=== PATIENT | male | born 1970 | race Hispanic/Latino ===

== ENCOUNTER 2020-07-13 06:16 | Inpatient (IN) | payer BC ==
[2020-07-13] MEDS ORDERED: MORPHINE 4 MG/ML SYR ONE ×2 (07:18→12:16)
[2020-07-13] MEDS ORDERED: ONDANSETRON 4 MG/2 ML VIAL ONE (07:18)
[2020-07-13 07:44] LABS: Absolute Lymphocytes (CBC) 1.1 K/uL (0.7-4.9); Basophils % 0.5 % (0-1.3); Hematocrit 53.1 % (39.6-49.0); Lymphocytes % 10.8 % (15.3-44.8); MPV 11.9 fL (7.6-11.3); RBC Red Blood Cell Count 5.95 M/uL (4.33-5.43)
[2020-07-13 08:02] LABS: Albumin 3.8 g/dL (3.4-5.0); Bilirubin Direct 0.2 mg/dL (0-0.2); Bilirubin Total 0.5 mg/dL (0.2-1.0); Potassium 3.9 mmol/L (3.5-5.1); Protein, Total 7.4 g/dL (6.4-8.2)
--- NOTE | 2020-07-13 08:43 | RAD REPORT ---
EXAM DESCRIPTION: CT - Abdomen Pelvis W Contrast - 07/13/2020 8:20 am CLINICAL HISTORY: Abdominal pain/left lower quadrant pain COMPARISON: none. TECHNIQUE: Computed axial tomography of the abdomen pelvis was obtained. 100 cc Isovue-300 was admin istered intravenously. Oral contrast was not requested which limits evaluation of bowel. All CT scans are performed using dose optimization technique as appropriate and may include automated exposure control or mA/KV adjustment according to patient size. FINDINGS: The liver, spleen, pancreas, adrenal and kidneys appear unremarkable. Gastric distention. Mild dilatation of jejunum and most of ileum. Distal ileum is decompressed. Diverticula stem from the colon. Minimal stranding adjacent to the sigmoid colon IMPRESSION: Gastric distention Mild dilatation of most of the small-bowel may indicate a partial obstruction or enteritis Minimal sigmoid diverticulitis
--- NOTE | 2020-07-13 09:15 | ER ---
Nurse's Notes [facility] Name: Stefan Man Age: 49 yrs Sex: Male : 1970 Arrival Date: 07/13/2020 Time: 06:21 Bed 7 Private MD: Diagnosis: Diverticulitis of large intestine without perforation or abscess without bleeding;Enteritis;Possible partial small bowel obstruction Presentation: 07/13 06:52 Chief complaint: Patient states: I have diverticulitis. The gave me Augmentin for jb4 it. The pain and nausea has only gotten worse. Coronavirus screen: Client denies travel out of the [place] in the last 14 days. Ebola Screen: No symptoms or risks identified at this time. Initial Sepsis Screen: Does the patient meet any 2 criteria? No. Patient's initial sepsis screen is negative. Does the patient have a suspected source of infection? No. Patient's initial sepsis screen is negative. Risk Assessment: Do you want to hurt yourself or someone else? Patient reports no desire to harm self or others. Onset of symptoms was July 13, 2020. Transition of care: patient was not received from another setting of care. 06:52 Method Of Arrival: Ambulatory jb4 06:52 Acuity: NISSA 3 jb4 Historical: - Allergies: 06:54 No Known Allergies; jb4 - Home Meds: 06:54 Augmentin Oral [Active]; jb4 - PMHx: 06:54 Diverticulitis; jb4 - PSHx: 06:54 None; jb4 - Immunization history:: Adult Immunizations up to date. - Social history:: Smoking status: Patient denies any tobacco usage or history of. Patient/guardian denies using alcohol, street drugs. - Family history:: not pertinent. - Hospitalizations: : No recent hospitalization is reported. Screenin:19 Abuse screen: Denies threats or abuse. Denies injuries from another. Nutritional ph screening: No deficits noted. Tuberculosis screening: No symptoms or risk factors identified. Fall Risk None identified. Assessment: 07:30 General: Appears in no apparent distress. comfortable, well groomed, Behavior is calm, ph cooperative, appropriate for age, Denies fever. Pain: Complains of pain in left lower quadrant. Neuro: Level of Consciousness is awake, alert, obeys commands, Oriented to person, place, time, situation. Cardiovascular: Capillary refill < 3 seconds in bilateral fingers Patient's skin is warm and dry. Respiratory: Airway is patent Respiratory effort is even, unlabored, Respiratory pattern is regular, symmetrical. GI: Abdomen is flat, non-distended, Bowel sounds present X 4 quads. Reports lower abdominal pain, diarrhea, nausea, vomiting. Derm: Skin is intact, is healthy with good turgor, Skin is pink, warm \T\ dry. Musculoskeletal: Circulation, motion, and sensation intact. Range of motion: intact in all extremities. 09:00 Reassessment: Patient appears in no apparent distress at this time. Patient and/or ph family updated on plan of care and expected duration. Pain level reassessed. Patient is alert, oriented x 3, equal unlabored respirations, skin warm/dry/pink. Pt resting comfortably, VSS, awaiting lab and CT scan. 10:00 Reassessment: Patient appears in no apparent distress at this time. Patient and/or ph family updated on plan of care and expected duration. Pain level reassessed. Patient is alert, oriented x 3, equal unlabored respirations, skin warm/dry/pink. 11:35 Reassessment: Patient appears in no apparent distress at this time. Patient and/or ph family updated on plan of care and expected duration. Pain level reassessed. Patient is alert, oriented x 3, equal unlabored respirations, skin warm/dry/pink. Pt reports that abdominal pain has returned, verbal order received form admitting PT SITTER for Morphine 4 mg IVP. 12:32 Reassessment: Patient appears in no apparent distress at this time. Patient and/or ph family updated on plan of care and expected duration. Pain level reassessed. Patient is alert, oriented x 3, equal unlabored respirations, skin warm/dry/pink. Attempted to call report, receiving nurse at lunch, told that she would call for report. Vital Signs: 06:52 BP 154 / 103; Pulse 82; Resp 16; Temp 98.1(TE); Pulse Ox 97% on R/A; Weight 117.93 kg jb4 (R); Height 6 ft. 0 in. (182.88 cm) (R); Pain 10/10; 08:22 BP 147 / 89; Pulse 78; Resp 18; Pulse Ox 94% on R/A; ph 10:06 BP 139 / 79; Pulse 56; Resp 18; Pulse Ox 100% on R/A; ph 11:00 BP 142 / 78; Pulse 61; Resp 18; Pulse Ox 98% on R/A; ph 12:00 BP 138 / 94; Pulse 72; Resp 18; Pulse Ox 98% on R/A; ph 12:55 BP 148 / 89; Pulse 78; Resp 18; Temp 97.9; Pulse Ox 97% on R/A; ph 06:52 Body Mass Index 35.26 (117.93 kg, 182.88 cm) jb4 ED Course: 06:21 Patient arrived in ED. es 06:53 Triage completed. jb4 06:54 Arm band placed on right wrist. jb4 06:57 John Paul Cole MD is Attending Physician. rn 07:18 Eva Oviedo, EMILY is Primary Nurse. ph 07:19 Patient has correct armband on for positive identification. Bed in low position. Call ph light in reach. Side rails up X 1. Pulse ox on. NIBP on. Door closed. Warm blanket given. 07:36 Initial lab(s) drawn, by nv, sent to lab. Inserted saline lock: 20 gauge in right em1 wrist, using aseptic technique. Blood collected. 08:20 CT Abd/Pelvis - IV Contrast Only In Process Unspecified. EDMS 09:14 Han Louie is Hospitalizing Provider. rn 10:06 No provider procedures requiring assistance completed. Patient admitted, IV remains in ph place. Administered Medications: 07:50 Drug: Zofran (Ondansetron) 4 mg Route: IVP; Site: right forearm; ph 09:15 Follow up: Response: No adverse reaction; Nausea unchanged ph 07:50 Drug: NS 0.9% 1000 ml Route: IV; Rate: 1000 ml; Site: right wrist; ph 09:30 Follow up: Response: No adverse reaction; IV Status: Completed infusion; IV Intake: ph 1000ml 07:52 Drug: morphine 4 mg Route: IVP; Site: right wrist; ph 08:45 Follow up: Response: No adverse reaction; Pain is decreased; RASS: Alert and Calm (0) ph 09:30 Drug: Phenergan (promethazine) 12.5 mg Route: IVP; Site: right wrist; ph 10:00 Follow up: Response: No adverse reaction ph 09:32 Drug: Cipro (ciprofloxacin) 400 mg Volume: 200 ml; Route: IVPB; Infused Over: 60 mins; ph Site: right wrist; 10:40 Follow up: Response: No adverse reaction; IV Status: Completed infusion; IV Intake: ph 200ml 09:35 Drug: Flagyl (metroNIDAZOLE) 500 mg Volume: 100 ml; Route: IVPB; Rate: 200 ml/hr; ph Infused Over: 30 mins; Site: right wrist; 10:05 Follow up: Response: No adverse reaction; IV Status: Completed infusion; IV Intake: ph 100ml 09:36 Drug: Calcium Gluconate 1 grams Route: IVPB; Infused Over: 60 mins; Site: right wrist; ph 10:40 Follow up: Response: No adverse reaction; IV Status: Completed infusion; IV Intake: ph 100ml 12:01 Drug: morphine 4 mg Route: IVP; Site: right wrist; ph 12:30 Follow up: Response: No adverse reaction; Pain is decreased ph Intake: 09:30 IV: 1000ml; Total: 1000ml. ph 10:05 IV: 100ml; Total: 1100ml. ph 10:40 IV: 100ml; Total: 1200ml. ph 10:40 IV: 200ml; Total: 1400ml. ph Outcome: 09:15 Decision to Hospitalize by Provider. rn 12:34 Admitted to Med/surg accompanied by tech, family with patient, with chart. ph 12:34 Condition: stable 12:34 Instructed on the need for admit. 13:14 Patient left the ED. ph Signatures: Dispatcher [employer] Kendra Alexander Roman, MD MD rn Martinez, Eric 1 Eva Oviedo RN RN ph Bryson, James, RN RN jb4
--- NOTE | 2020-07-13 09:16 | EDPHYS ---
Physician Documentation [facility] Name: Stefan Man Age: 49 yrs Sex: Male : 1970 Arrival Date: 07/13/2020 Time: 06:21 Bed 7 Private MD: ED Physician John Paul Cole HPI: 07/13 07:05 This 49 yrs old Male presents to ER via Ambulatory with complaints of rn Abdominal Pain, Diarrhea. 07:05 The patient presents to the emergency department with nausea, diarrhea, abdominal pain, rn of the left lower quadrant, described as crampy, intermittent, and does not radiate. Onset: The symptoms/episode began/occurred 3 day(s) ago. Possible causes: unknown. The symptoms are aggravated by nothing. The symptoms are alleviated by nothing. Associated signs and symptoms: Pertinent positives: abdominal pain, anorexia, diarrhea, nausea, Pertinent negatives: GI bleeding. Severity of symptoms: At their worst the symptoms were moderate in the emergency department the symptoms are unchanged. The patient has experienced similar episodes in the past. The patient has been recently seen by a physician:. Reports LLQ abd pain, began 3 days ago, similar to previous episodes of diverticulitis, no fever, + nausea, + diarrhea, no bleeding. Reports seen by pcp recently, put on augmentin, doesn't feel like it is helping. . Historical: - Allergies: 06:54 No Known Allergies; jb4 - Home Meds: 06:54 Augmentin Oral [Active]; jb4 - PMHx: 06:54 Diverticulitis; jb4 - PSHx: 06:54 None; jb4 - Immunization history:: Adult Immunizations up to date. - Social history:: Smoking status: Patient denies any tobacco usage or history of. Patient/guardian denies using alcohol, street drugs. - Family history:: not pertinent. - Hospitalizations: : No recent hospitalization is reported. ROS: 07:05 Constitutional: Negative for fever, chills, and weight loss, Eyes: Negative for injury, rn pain, redness, and discharge, Neck: Negative for injury, pain, and swelling, Cardiovascular: Negative for chest pain, palpitations, and edema, Respiratory: Negative for shortness of breath, cough, wheezing, and pleuritic chest pain, Abdomen/GI: + abd pain, + nausea, + diarrhea Back: Negative for injury and pain, : Negative for injury, bleeding, discharge, and swelling, MS/Extremity: Negative for injury and deformity, Skin: Negative for injury, rash, and discoloration, Neuro: Negative for headache, numbness, tingling, and seizure. Exam: 07:05 Constitutional: This is a well developed, well nourished patient who is awake, alert, rn and in no acute distress. Head/Face: Normocephalic, atraumatic. Eyes: Periorbital areas with no swelling, redness, or edema. Cardiovascular: Regular rate and rhythm. No pulse deficits. Respiratory: No increased work of breathing, no retractions or nasal flaring. Abdomen/GI: Soft, + mild LLQ tenderness, no rebound, no peritoneal signs Skin: Warm, dry MS/ Extremity: Pulses equal, no cyanosis. Neuro: Awake and alert, GCS 15 Vital Signs: 06:52 BP 154 / 103; Pulse 82; Resp 16; Temp 98.1(TE); Pulse Ox 97% on R/A; Weight 117.93 kg jb4 (R); Height 6 ft. 0 in. (182.88 cm) (R); Pain 10/10; 08:22 BP 147 / 89; Pulse 78; Resp 18; Pulse Ox 94% on R/A; ph 10:06 BP 139 / 79; Pulse 56; Resp 18; Pulse Ox 100% on R/A; ph 11:00 BP 142 / 78; Pulse 61; Resp 18; Pulse Ox 98% on R/A; ph 12:00 BP 138 / 94; Pulse 72; Resp 18; Pulse Ox 98% on R/A; ph 12:55 BP 148 / 89; Pulse 78; Resp 18; Temp 97.9; Pulse Ox 97% on R/A; ph 06:52 Body Mass Index 35.26 (117.93 kg, 182.88 cm) jb4 MDM: 06:57 Patient medically screened. rn 09:12 Differential diagnosis: Nonspecific abd pain, diverticulitis, viral gastroenteritis, rn gastroenteritis. Data reviewed: vital signs, nurses notes, lab test result(s), radiologic studies, CT scan, and as a result, I will admit patient. Counseling: I had a detailed discussion with the patient and/or guardian regarding: the historical points, exam findings, and any diagnostic results supporting the discharge/admit diagnosis, lab results, radiology results, the need for further work-up and treatment in the hospital. Response to treatment: the patient's symptoms have mildly improved after treatment, and as a result, I will admit patient. Admission orders: after a detailed discussion of the patient's condition and case, the admit orders are written by me. ED course: Pt with enteritis vs partial SBO and diverticulitis on CT abdomen. Story more consistent with diverticulitis/enteritis given diarrhea, and lack of hernia/abd surgery in past. Since unclear, will admit to hospitalist for further observation, IV abx, fluids. . 07/13 06:53 Order name: Basic Metabolic Panel; Complete Time: 08:10 tw4 07/13 06:53 Order name: CBC with Diff; Complete Time: 07:47 tw4 07/13 06:53 Order name: Hepatic Function; Complete Time: 08:10 tw4 07/13 06:53 Order name: Lipase; Complete Time: 08:10 tw4 07/13 11:02 Order name: SARS-COV-2 RT PCR EDMS 07/13 07:04 Order name: CT Abd/Pelvis - IV Contrast Only; Complete Time: 08:46 rn 07/13 06:53 Order name: IV Saline Lock; Complete Time: 07:36 tw4 07/13 06:53 Order name: Labs collected and sent; Complete Time: 07:36 tw4 Administered Medications: 07:50 Drug: Zofran (Ondansetron) 4 mg Route: IVP; Site: right forearm; ph 09:15 Follow up: Response: No adverse reaction; Nausea unchanged ph 07:50 Drug: NS 0.9% 1000 ml Route: IV; Rate: 1000 ml; Site: right wrist; ph 09:30 Follow up: Response: No adverse reaction; IV Status: Completed infusion; IV Intake: ph 1000ml 07:52 Drug: morphine 4 mg Route: IVP; Site: right wrist; ph 08:45 Follow up: Response: No adverse reaction; Pain is decreased; RASS: Alert and Calm (0) ph 09:30 Drug: Phenergan (promethazine) 12.5 mg Route: IVP; Site: right wrist; ph 10:00 Follow up: Response: No adverse reaction ph 09:32 Drug: Cipro (ciprofloxacin) 400 mg Volume: 200 ml; Route: IVPB; Infused Over: 60 mins; ph Site: right wrist; 10:40 Follow up: Response: No adverse reaction; IV Status: Completed infusion; IV Intake: ph 200ml 09:35 Drug: Flagyl (metroNIDAZOLE) 500 mg Volume: 100 ml; Route: IVPB; Rate: 200 ml/hr; ph Infused Over: 30 mins; Site: right wrist; 10:05 Follow up: Response: No adverse reaction; IV Status: Completed infusion; IV Intake: ph 100ml 09:36 Drug: Calcium Gluconate 1 grams Route: IVPB; Infused Over: 60 mins; Site: right wrist; ph 10:40 Follow up: Response: No adverse reaction; IV Status: Completed infusion; IV Intake: ph 100ml 12:01 Drug: morphine 4 mg Route: IVP; Site: right wrist; ph 12:30 Follow up: Response: No adverse reaction; Pain is decreased ph Disposition: 07/13/20 09:15 Hospitalization ordered by Han Louie for Observation. Preliminary diagnosis are Diverticulitis of large intestine without perforation or abscess without bleeding, Enteritis, Possible partial small bowel obstruction. - Bed requested for Telemetry/MedSurg (observation). - Status is Observation. ph - Condition is Stable. - Problem is new. - Symptoms have improved. Signatures: Dispatcher [employer] [facility] Leila Kim RN RN dw Nieto, Roman, MD MD rn Hall, Patricia, RN RN ph Bryson, James, RN RN jb4 Alek Figueredo MD MD tw4 Corrections: (The following items were deleted from the chart) 10:02 09:12 CORONAVIRUS+MR.LAB.BRZ ordered. [facility] 12:25 09:15 Hospitalization Ordered by Han Louie for Observation. Preliminary diagnosis dw is Diverticulitis of large intestine without perforation or abscess without bleeding; Enteritis; Possible partial small bowel obstruction. Bed requested for Telemetry/MedSurg (observation). Status is Observation. Condition is Stable. Problem is new. Symptoms have improved. rn 12:26 12:25 07/13/2020 09:15 Hospitalization Ordered by Han Louie for Observation. dw Preliminary diagnosis is Diverticulitis of large intestine without perforation or abscess without bleeding; Enteritis; Possible partial small bowel obstruction. Bed requested for Telemetry/MedSurg (observation). Status is Observation. Condition is Stable. Problem is new. Symptoms have improved. dw 13:14 12:26 07/13/2020 09:15 Hospitalization Ordered by Han Louie for Observation. ph Preliminary diagnosis is Diverticulitis of large intestine without perforation or abscess without bleeding; Enteritis; Possible partial small bowel obstruction. Bed requested for Telemetry/MedSurg (observation). Status is Observation. Condition is Stable. Problem is new. Symptoms have improved. dw
[2020-07-13] MEDS ORDERED: PROMETHAZINE INJ 25 MG/ML AMP ONE (09:39)
[2020-07-13] MEDS ORDERED: CALCIUM GLUCONATE 1 GM IVPB 1 GM/50 ML BAG IV ONE (09:40)
[2020-07-13] MEDS ORDERED: METRONIDAZOLE 500mg IVPB 500 MG/100 ML BAG IV ONE (09:40)
[2020-07-13] MEDS ORDERED: CIPROFLOXACIN 400mg IV 400 MG/200 ML BAG IV ONE (09:40)
--- NOTE | 2020-07-13 11:23 | P.HP ---
Certification for Inpatient Patient admitted to: Observation With expected LOS: <2 Midnights Patient will require the following post-hospital care: None Practitioner: I am a practitioner with admitting privileges, knowledge of patient current condition, hospital course, and medical plan of care. Services: Services provided to patient in accordance with Admission requirements found in Title 42 Section 412.3 of the Code of Federal Regulations Patient History Date of Service: 07/13/20 Reason for admission: diverticulitis History of Present Illness: This is a 49 y/o M w/ hx of recurrent diverticulitis who presents today w/ worsening abdominal pain x 6 days. He describes the pain as feeling bloated and cramping 11/15. He states the pain started mildly on Monday and saw a dr at [facility] and was prescribed antibiotics. He reports his pain continued to get worse through the week and reports no relief with antibiotics or immodium. He reports he has a history of diverticulitis flare ups and he was hospitalized once before in 2018. He has never had a colonoscopy. He does not currently have a GI dr and was in the process of setting up care, he had a GI appointment scheduled for tomorrow. He c/o nausea, vomiting, diarrhea. He denies any fever or chills. No elevated WBC. CT scan shows "Gastric distention. Mild dilatation of most of the small-bowel may indicate a partial obstruction or enteritis. Minimal sigmoid diverticulitis" Allergies No Known Allergies Allergy (Verified 03/27/12 07:36) Home Medications: NK [No Home Meds] 07/13/20 - Past Medical/Surgical History -: diverticulitis Past Surgical History: Patient denies surgical history Psychosocial/ Personal History: lives w/ girlfriend - Family History Family History: Reviewed- Non-Contributory - Social History Smoking Status: Never smoker Alcohol use: Yes CD- Drugs: No Caffeine use: No Review of Systems 10-point ROS is otherwise unremarkable General: Weakness Gastrointestinal: Nausea, Vomiting, Abdominal Pain, Diarrhea, As per HPI Physical Examination - Physical Exam General: Alert, Oriented x3 HEENT: Atraumatic, Normocephalic, PERRLA, Mucous membr. moist/pink, EOMI Neck: Supple Respiratory: Clear to auscultation bilaterally, Normal air movement Cardiovascular: No edema, Regular rate/rhythm, No murmurs Gastrointestinal: Normal bowel sounds, Soft and benign, Distended, Tenderness (diffuse tenderness in all quadrants, TTP>LLQ) Musculoskeletal: No clubbing, No swelling Integumentary: No rashes, No erythema, No warmth Neurological: Normal speech, Normal tone, Normal affect Lymphatics: No axilla or inguinal lymphadenopathy - Studies Laboratory Data (last 24 hrs) 07/13/20 07:33: WBC 10.10, Hgb 17.5, Hct 53.1 H, Plt Count 136 L 07/13/20 07:33: Sodium 140, Potassium 3.9, BUN 17, Creatinine 1.23, Glucose 134 H, Total Bilirubin 0.5, AST 28, ALT 62, Alkaline Phosphatase 77, Lipase 72 L Assessment and Plan - Plan problem list: diverticulitis vs enteritis assessment: ceftriaxone and flagyl surgery consulted NPO IVF KUB ordered for tomorrow morning pain control w/ morphine DVT prophylaxis procal pending Discharge Plan: Home Plan to discharge in: 24 Hours - Advance Directives Does patient have a Living Will: No Does patient have a Durable POA for Healthcare: No - Code Status/Comfort Care Code Status Assessed: Yes Code Status: Full Code Time Spent Managing Pts Care (In Minutes): 70
[2020-07-13] MEDS ORDERED: ACETAMINOPHEN 500 MG TAB PO PRN (13:12)
[2020-07-13 13:39] VITALS: BMI 36.6
[2020-07-13] MEDS: ONDANSETRON 4 MG/2 ML VIAL IV PRN ×2 (13:48→20:07)
[2020-07-13] MEDS: MORPHINE 2 MG/ML SYR IV PRN ×2 (13:48→20:07)
[2020-07-13] MEDS: NA CHLORIDE 0.9% 1,000 ML IV SCH ×2 (13:48→23:12)
[2020-07-13] MEDS: CEFTRIAXONE/SWI 1gm 1 GM/10 ML SYR IV SCH (13:48)
[2020-07-13 15:47] LABS: Urine Appearance CLEAR (Clear); Urine Bilirubin NEGATIVE (Negative); Urine Blood NEGATIVE (Negative); Urine Color YELLOW (Yellow); Urine Glucose TRACE (Negative); Urine Protein NEGATIVE (Negative); Urine Specific Gravity >=1.030 (1.005-1.030); Urine Urobilinogen 0.2 mg/dL (0.2-1.0)
[2020-07-13 15:52] LABS: Urine Microscopic Reflex NO UMIC
[2020-07-13] MEDS: METRONIDAZOLE 500mg IVPB 500 MG/100 ML BAG IV SCH (16:10)
--- NOTE | 2020-07-13 19:12 | CON ---
Date of Consultation: 07/13/2020 Reason For Consultation: Abdominal pain. History Of Present Illness: The patient is a 49-year-old gentleman, who about a week had left lower quadrant abdominal pain with a history of diverticulitis and started on Augmentin; however, his sympt oms worsened on Monday when he was mowing the lawn with diffuse abdominal pain and was progressive over the next 2 days and became worse. He came to the ER today complaining of some nausea, vomiting, and diffuse abdominal pain. No diarrhea or constipation. No blood in the stool. No dysuria or hem aturia. No sore throat, runny nose, cough, headaches, or dizziness. No chest pain. No family histo ry of colorectal malignancy. The patient does not smoke. He does not drink alcohol, except for soci al events. Past Medical History: Negative. Past Surgical History: Negative. Allergies: NO ALLERGIES. Social History: As per HPI. Family History: As per HPI. Physical Examination: Vital Signs: Stable. He is afebrile. General: He is awake, alert, oriented x3. Head and Neck: Cranial nerves 2 through 12 grossly within normal limits. No neck masses. No JVD. Throat clear. Neck is supple. Chest: Clear. Heart: S1, S2. Abdomen: Soft, but slightly distended. Hypoactive bowel sounds. Diffuse minimal tenderness. No re bound, rigidity, or guarding. Exquisite tenderness in the left lower quadrant, however. Extremities: Adequately perfused, nontender. Neuro: Nonfocal. Laboratory Data: White count is 10.8 with slight left shift. Electrolytes reviewed. CT of the abdo men and pelvis shows mild sigmoid diverticulitis with mild dilatation of the jejunum and most of the ileum. Assessment: Likely sigmoid diverticulitis with partial small bowel obstruction. Recommendations: N.p.o., IV fluid, IV antibiotic, to the OR, NG tube if he continues to have nausea and vomiting. Check serial labs. If the patient improves, then we can advance him to clear liquids to a low-fiber diet. He will undergo surgical intervention sooner. In the meantime as far as long-t erm plan, this acute diverticulitis needs to be treated and then the patient will need a colonoscopy in 4-6 weeks. Depending on the findings, he may need surgical intervention. Plan of care discussed in detail with the hospitalist team as well as the patient. /MODL Voice ID: [id number] Report ID: [id number]
[2020-07-14] MEDS: NA CHLORIDE 0.9% 1,000 ML IV SCH ×3 (00:48→20:49)
[2020-07-14] MEDS: METRONIDAZOLE 500mg IVPB 500 MG/100 ML BAG IV SCH ×3 (01:00→17:02)
[2020-07-14 05:40] LABS: Absolute Lymphocytes (CBC) 1.3 K/uL (0.7-4.9); Basophils % 0.3 % (0-1.3); Hematocrit 45.2 % (39.6-49.0); Lymphocytes % 19.4 % (15.3-44.8); MPV 12.1 fL (7.6-11.3); RBC Red Blood Cell Count 4.99 M/uL (4.33-5.43)
[2020-07-14 05:55] LABS: Magnesium 2.2 mg/dL (1.8-2.4); Phosphorus 2.2 mg/dL (2.5-4.9); Potassium 3.9 mmol/L (3.5-5.1)
--- NOTE | 2020-07-14 07:09 | RAD REPORT ---
EXAM DESCRIPTION: RAD - Abdomen Single View - 07/14/2020 7:02 am CLINICAL HISTORY: partial bowel obstruction Abdominal pain COMPARISON: Abdomen Pelvis W Contrast dated 07/13/2020 FINDINGS: Fluid-filled stomach is still present. Multiple dilated small bowel loops are still presen t. No free air or pneumatosis. No improvement in the small bowel pattern. Air is present in the colon down to the level of the rectum. No suspicious calcifications. IMPRESSION: No improvement in the dilated small bowel pattern. No free air, pneumatosis or surgically emergent interval change.
[2020-07-14] MEDS ORDERED: POTASSIUM PHOS IN 0.9 % NACL 15 MMOL/250 ML BAG IV ONE (09:00)
[2020-07-14] MEDS: ENOXAPARIN 40 MG/0.4 ML SQ SCH (09:00)
[2020-07-14] MEDS: CEFTRIAXONE/SWI 1gm 1 GM/10 ML SYR IV SCH (09:40)
--- NOTE | 2020-07-14 10:15 | P.PN ---
Subjective Date of Service: 07/14/20 Chief Complaint: diverticulitis Subjective: Improving (continues with nausea and pain, slight improvement, +flatus, no BM, no emesis abd x-ray unchanged with small bowel distention) Review of Systems 10-point ROS is otherwise unremarkable Physical Examination - Vital Signs Temperature: 97.3 F Blood Pressure: 133/80 Pulse: 70 Respirations: 17 Pulse Ox (%): 99 - Studies Laboratory Data (last 24 hrs) 07/14/20 05:15: Sodium 141, Potassium 3.9, BUN 15, Creatinine 1.23, Glucose 94, Phosphorus 2.2 L, Magnesium 2.2 07/14/20 05:15: WBC 6.50 D, Hgb 14.6 D, Hct 45.2, Plt Count 123 L Assessment & Plan Physician Review Additional Text: Physical Exam General: Alert, Oriented x3 HEENT: normal conjunctiva, EOMI Respiratory: Clear to auscultation bilaterally, Normal air movement, nonlabored respirations on RA Cardiovascular: No edema, Regular rate/rhythm, No murmurs Abdl: soft, mildly distended, TTP diffusely, most in LLQ Musculoskeletal: No joint swelling Integumentary: No rashes, No erythema, No warmth Neurological: Normal speech, Normal affect Lymphatics: No axilla or inguinal lymphadenopathy Problem List acute Diverticulitis Partial small bowel obstruction -continue IV rocephin and flagyl -general surgery consulted -continue NPO, IVF -KUB with no improvement -+flatus, and overall feeling slightly better -NGT if worsens -continue pain control with morphine PRN -if continues to improve, possible advance to clears tomorrow VTE: lovenox Dispo: anticipate dc home in ~24-48hrs Time Spent Managing Pts Care (In Minutes): 35
[2020-07-14] MEDS: ONDANSETRON 4 MG/2 ML VIAL IV PRN (10:40)
--- NOTE | 2020-07-14 13:56 | PN ---
Date of Progress Note: 07/14/2020 Subjective: The patient is awake, alert, feels better. Had a little bit nausea when he was moving f or the abdominal x-ray this morning, but no vomiting. He is passing gas . Objective: Vital Signs: Stable and afebrile. Abdomen: Soft, less distended, much less tenderness in the left lower quadrant. No rebound, rigidit y, or guarding. Laboratory Data: White count is normal. There is no left shift anymore. X-rays still showed bilate ral dilatation of the small bowel with no significant change. Assessment: Acute sigmoid diverticulitis with partial small bowel obstruction, slowly improving clin ically. Recommendations: As he is still a little symptomatic and the x-rays have improved, I would recommend to be n.p.o., he can have some ice chips today and probably he could start clear liquids tomorrow. Continue IV fluids and IV antibiotics while in the hospital. SARTHAK/ASHUTOSH Voice ID: [id number] Report ID: [id number]
[2020-07-15] MEDS: METRONIDAZOLE 500mg IVPB 500 MG/100 ML BAG IV SCH ×3 (00:57→15:59)
[2020-07-15 04:32] LABS: Absolute Lymphocytes (CBC) 1.5 K/uL (0.7-4.9); Basophils % 0.3 % (0-1.3); Hematocrit 43.8 % (39.6-49.0); RBC Red Blood Cell Count 4.91 M/uL (4.33-5.43)
[2020-07-15 04:33] LABS: Phosphorus 2.3 mg/dL (2.5-4.9); Potassium 3.7 mmol/L (3.5-5.1)
[2020-07-15] MEDS: NA CHLORIDE 0.9% 1,000 ML IV SCH (05:12)
--- NOTE | 2020-07-15 07:58 | RAD REPORT ---
EXAM DESCRIPTION: RAD - Abdomen 1 View (KUB) - 07/15/2020 6:32 am CLINICAL HISTORY: eval SBO Abdominal pain COMPARISON: Abdomen Pelvis W Contrast dated 07/13/2020; Abdomen Single View dated 07/14/2020 FINDINGS: Multiple dilated small bowel loops are present in the mid and right side abdomen. Bowel lo ops have decreased in prominence from the prior day study. No free air or pneumatosis have developed. Air and stool are present in the colon to the distal rectum level. No suspicious calcifications. No significant bony findings IMPRESSION: Improved but not resolved dilated small bowel pattern. No free air, pneumatosis or other emergent finding.
[2020-07-15] MEDS ORDERED: POTASSIUM PHOS IN 0.9 % NACL 15 MMOL/250 ML BAG IV ONE (08:00)
[2020-07-15] MEDS: CEFTRIAXONE/SWI 1gm 1 GM/10 ML SYR IV SCH (08:06)
[2020-07-15] MEDS: ENOXAPARIN 40 MG/0.4 ML SQ SCH (08:07)
--- NOTE | 2020-07-15 09:37 | P.PN ---
Subjective Date of Service: 07/15/20 Chief Complaint: diverticulitis Subjective: Improving (Improving, no nausea since yesterday, minimal abdominal pressure/discomfort. Reports he is feeling hungry. Tolerated a few ice chips yesterday.) Review of Systems 10-point ROS is otherwise unremarkable Physical Examination - Vital Signs Temperature: 97.5 F Blood Pressure: 124/66 Pulse: 57 Respirations: 14 Pulse Ox (%): 98 Assessment & Plan Physician Review Additional Text: Physical Exam General: Alert, Oriented x3, NAD HEENT: normal conjunctiva, sclerae anicteric Respiratory: Clear to auscultation bilaterally, Normal air movement, nonlabored respirations on RA Cardiovascular: No edema, Regular rate/rhythm, No murmurs Abdl: soft, non distended, mild discomfort diffusely Problem List acute Diverticulitis Partial small bowel obstruction -+flatus, 2 BM last night -continue IV rocephin and flagyl -general surgery consulted -KUB appears improved, symptoms improved, suspect bowel obstruction resolving -advance to CLD today -further advance tomorrow if tolerating today -foreign law consultant consulted VTE: lovenox Dispo: anticipate dc home tomorrow if continues to improve will need PO antibiotics (cipro & flagyl), f/u with general surgery in ~2weeks. Time Spent Managing Pts Care (In Minutes): 35
--- NOTE | 2020-07-15 10:36 | PN ---
Date of Progress Note: 07/15/2020 Subjective: The patient is awake, alert. Had a couple of bowel movements yesterday. No pain. No n ausea. No vomiting. Objective: Vital Signs: Stable, afebrile. Laboratory Data: White count is normal. Platelets are 121. There is no left shift. The patient dixon d an x-ray this morning, which showed improved small bowel dilated pattern. Assessment: Acute sigmoid diverticulitis with partial small bowel obstruction, improving. Recommendations: Start the patient on clear liquids. Slowly advance diet. We will get dietary cons ultation for dietary modification. The patient to be advanced to low-fiber diet as tolerated and the n to be discharged on oral antibiotics for 2 weeks, Cipro and Flagyl would be a good combination for the patient and then the patient will follow with me in 2 weeks and I will refer the patient to GI do ctor for colonoscopy. The patient is clinically doing well. SARTHAK/MODL Voice ID: [id number] Report ID: [id number]
[2020-07-15 22:20] VITALS: O2SAT 99
[2020-07-16] MEDS: METRONIDAZOLE 500mg IVPB 500 MG/100 ML BAG IV SCH ×3 (00:59→16:01)
[2020-07-16 04:41] LABS: Phosphorus 3.4 mg/dL (2.5-4.9); Potassium 3.7 mmol/L (3.5-5.1)
[2020-07-16] MEDS: CEFTRIAXONE/SWI 1gm 1 GM/10 ML SYR IV SCH (08:40)
[2020-07-16] MEDS: ENOXAPARIN 40 MG/0.4 ML SQ SCH (08:40)
[2020-07-16] MEDS ORDERED: POTASSIUM CL SA 10 MEQ TAB PO ONE (09:00)
--- NOTE | 2020-07-16 09:15 | RAD REPORT ---
EXAM DESCRIPTION: RAD - Abdomen 1 View (KUB) - 07/16/2020 5:46 am CLINICAL HISTORY: f/u SBO Pain COMPARISON: Abdomen 1 View (KUB) dated 07/15/2020 FINDINGS: Two mildly prominent small bowel loops are again noted in the left upper quadrant, similar to yesterday's examination. Otherwise, the bowel gas pattern is nonobstructive. No evidence of free intraperitoneal air. No significant bony findings. IMPRESSION: No significant change has occurred since yesterday's examination.
--- NOTE | 2020-07-16 15:12 | P.PN ---
Subjective Date of Service: 07/16/20 Chief Complaint: diverticulitis Subjective: Other (BM yetserday, reports slight specks of red blood. no further bleeding. otherwise feeling ok, some gas / burping, +flatus last night. tolerating clear liquid diet with some slight increase in burping) Review of Systems 10-point ROS is otherwise unremarkable Physical Examination - Vital Signs Temperature: 98.8 F Blood Pressure: 128/75 Pulse: 51 Respirations: 16 Pulse Ox (%): 100 Assessment & Plan Physician Review Additional Text: Physical Exam General: Alert, Oriented x3, NAD HEENT: normal conjunctiva, sclerae anicteric Respiratory: Clear to auscultation bilaterally, Normal air movement, nonlabored respirations on RA Cardiovascular: No edema, Regular rate/rhythm, No murmurs Abdl: soft, non distended, nontender Problem List acute Diverticulitis Partial small bowel obstruction vs ileus -+flatus, 1 BM last night -continue IV rocephin and flagyl -general surgery consulted -KUB appears improved - persistent small bowel loops but no obstructive gas pattern -advance to full liquids, if tolerating well, anticipate dc home later today, will need 2 weeks total of antibiotics - cipro/flagyl on discharge -director of content marketing consulted VTE: lovenox Dispo: anticipate dc home later today if continues to improve will need PO antibiotics (cipro & flagyl), f/u with general surgery in ~2weeks. Time Spent Managing Pts Care (In Minutes): 35
[2020-07-16 16:19] VITALS: BP 130/73; TEMP 97.3
--- NOTE | 2020-07-16 19:48 | P.DS ---
Admission Date: 07/14/20 Discharge Date: 07/16/20 Disposition: ROUTINE DISCHARGE Discharge Condition: GOOD Reason for Admission: diverticulitis Consultations: General Surgery - Dr. Hayes Procedures: CT Abd/pelvis (07/13): FINDINGS: The liver, spleen, pancreas, adrenal and kidneys appear unremarkable. Gastric distention. Mild dilatation of jejunum and most of ileum. Distal ileum is decompressed. Diverticula stem from the colon. Minimal stranding adjacent to the sigmoid colon IMPRESSION: Gastric distention Mild dilatation of most of the small-bowel may indicate a partial obstruction or enteritis Minimal sigmoid diverticulitis Xray KUB (07/14): FINDINGS: Fluid-filled stomach is still present. Multiple dilated small bowel loops are still present. No free air or pneumatosis. No improvement in the small bowel pattern. Air is present in the colon down to the level of the rectum. No suspicious calcifications. IMPRESSION: No improvement in the dilated small bowel pattern. No free air, pneumatosis or surgically emergent interval change. Xray KUB (07/15): FINDINGS: Multiple dilated small bowel loops are present in the mid and right side abdomen. Bowel loops have decreased in prominence from the prior day study. No free air or pneumatosis have developed. Air and stool are present in the colon to the distal rectum level. No suspicious calcifications. No significant bony findings IMPRESSION: Improved but not resolved dilated small bowel pattern. No free air, pneumatosis or other emergent finding. Xray KUB (07/16): FINDINGS: Two mildly prominent small bowel loops are again noted in the left upper quadrant, similar to yesterday's examination. Otherwise, the bowel gas pattern is nonobstructive. No evidence of free intraperitoneal air. No significant bony findings. IMPRESSION: No significant change has occurred since yesterday's examination. Problem List Acute sigmoid Diverticulitis ileus vs parital SBO Brief History of Present Illness: 49 y/o M w/ hx of recurrent diverticulitis who presents today w/ worsening ab dominal pain x 6 days. He describes the pain as feeling bloated and cramping 11/15. He states the pain started mildly on Monday and saw a dr at [facility] and was prescribed antibiotics. He reports his pain continued to get worse through the week and reports no relief with antibiotics or immodium. He reports he has a history of diverticulitis flare ups and he was hospitalized once before in 2018. He has never had a colonoscopy. He does not currently have a GI dr and was in the process of setting up care, he had a GI appointment scheduled for tomorrow. He c/o nausea, vomiting, diarrhea. He denies any fever or chills. Hospital Course: Treated with empiric antibiotics, IVF, and bowel rest. He had gradual improvement of his symptoms and resolution of obstructive pattern on imaging. On day of discharge he was feeling much better, tolerating full liquid diet with some mild belching, but passing flatus and had multiple BMs. He was discharged to complete 2 week course of cipro & flagyl Follow up with Dr. Hayes in 2 weeks. He will need colonscopy in the near future / f/u with GI. Vital Signs/Physical Exam: Temp Pulse Resp BP Pulse Ox 97.3 F 53 16 130/73 100 07/16/20 16:00 07/16/20 16:00 07/16/20 16:00 07/16/20 16:00 07/16/20 16:00 Laboratory Data at Discharge: WBC 6.10 K/uL (4.3-10.9) 07/15/20 03:36 Hgb 14.6 g/dL (13.6-17.9) 07/15/20 03:36 Hct 43.8 % (39.6-49.0) 07/15/20 03:36 Plt Count 121 K/uL (152-406) L 07/15/20 03:36 Sodium 142 mmol/L (136-145) 07/16/20 03:57 Potassium 3.7 mmol/L (3.5-5.1) 07/16/20 03:57 BUN 14 mg/dL (7-18) 07/16/20 03:57 Creatinine 1.33 mg/dL (0.55-1.3) H 07/16/20 03:57 Glucose 88 mg/dL (74-106) 07/16/20 03:57 Phosphorus 3.4 mg/dL (2.5-4.9) 07/16/20 03:57 Magnesium 2.2 mg/dL (1.8-2.4) 07/14/20 05:15 Total Bilirubin 0.5 mg/dL (0.2-1.0) 07/13/20 07:33 AST 28 U/L (15-37) 07/13/20 07:33 ALT 62 U/L (12-78) 07/13/20 07:33 Alkaline Phosphatase 77 U/L (45-117) 07/13/20 07:33 Lipase 72 U/L (73-393) L 07/13/20 07:33 Home Medications: Ciprofloxacin HCl [Cipro 500 MG Tablet] 500 mg PO BID 12 Days #24 tab 07/16/20 Ondansetron [Zofran] 4 mg PO Q6H PRN 3 Days #10 tab 07/16/20 metroNIDAZOLE [Flagyl] 500 mg PO Q8H 12 Days #36 tablet 07/16/20 New Medications: Ciprofloxacin HCl [Cipro 500 MG Tablet] 500 mg PO BID 12 Days #24 tab metroNIDAZOLE [Flagyl] 500 mg PO Q8H 12 Days #36 tablet Ondansetron [Zofran] 4 mg PO Q6H PRN 3 Days #10 tab PRN Reason: Nausea / Vomiting Physician Discharge Instructions: You were found to have acute diverticulitis complicated by an ileus. You improved with IV antibiotics, bowel rest, and IV fluids. Continue a full liquid / soft diet for the next week. You are discharged with antibiotics for an additional 12 days. Please follow up with Dr. Hayes in ~2 weeks. You will need to follow up with a GI doctor and have a colonoscopy in the near future. Follow up with PCP in 3-5 days. Diet: liquid/sof Activity: Ad yan Followup: NONE,NONE [Primary Care Provider] - Felipe Hayes MD [ACTIVE - CAN ADMIT] - 1-2 Weeks Time spent managing pt's care (in minutes): 45
== END 2020-07-16 19:15 | disposition home or self-care (01) | DRG 392 ==
LOC: ER 06:16 → ERHOLD 10:18 → 2ND 12:51 → OBSVTOIN 07-14 07:45 → 2ND 07-16 15:48
PROVIDERS: ADMIT Internal Medicine; ATTEND Internal Medicine
DX: K57.32 Diverticulitis of large intestine without perforation or abscess without bleeding (principal); K56.600 Partial intestinal obstruction, unspecified as to cause; Z20.822 Contact with and (suspected) exposure to COVID-19
CPT/HCPCS: 36415; 74018; 74177; 80048; 80076; 81003; 83690; 83735; 84100; 84145; 85025; 99285; G0378; J0610; J0696; J0744; J1650; J2270; J2405; J2550; J7030; Q9967; U0003

== ENCOUNTER 2022-10-04 12:55 | Inpatient (IN) | payer BC ==
--- OUTSIDE RECORDS SUMMARY | 2022-10-04 12:59 | XMS REPORT | Continuity of Care Document ---
:1970 Author Organization [facility] t Address [address] [place] [address] Care Team Providers Name Role Phone Velma GAN, Barbara Amaro Primary Care Physician NIKOLAY BARRIGA Attending Clinician Unavailable RASHMI RITCHIE Attending Clinician Unavailable KORTNEY DAVIDSON Attending Clinician Unavailable LAB90 Attending Clinician Unavailable LOREE SOW Attending Clinician Unavailable PELON SOSA Attending Clinician Unavailable JAIRO SANTO Attending Clinician Unavailable [place] IRELAND Attending Clinician Unavailable Emerson Hou PA-C Attending Clinician Barbara Carreon MD Attending Clinician [phone] BARBARA CARREON Attending Clinician Unavailable CHRIS READ Attending Clinician Unavailable COVID-PFIZER RASHMI FLORES Attending Clinician Unava ROSI Puentes Attending Clinician Unavailable RAJANI ESPITIA Attending Clinician Unavailable Payers Payer Name Policy Type Policy Number Effective Date [facility] Date [facility] [id number] 2018 [place] 00:00:00 CAPITATED) Problems Condition Condition Condition Status Onset Resolution Last Treating Co mments Source Name Details Category Date Date Treatment Clinician Date SARS-CoV-2 SARS-CoV-2 Disease Active 2021-02 K elsey positive positive 2-22 Seybol d 00:00: - 00 Externa l 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) 00:00: - 00 Externa l Mild Mild Disease Active Azra intermitte intermitte 07-02 Se ybold nt asthma nt asthma 00:00: - 00 Externa l Essential Essential Disease Active Sergo y hypertensi hypertensi 07-02 Se ybold on on 00:00: - 00 Externa l Diverticul Diverticul Disease Active K barbie osis osis 07-02 Seybold 00:00: - 00 Externa l 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 Sexual orientation 2018-04-25 Heterosexual Jes luo Seybold 13:18:18 (finding) - External History of tobacco Cigar Smoker Jes luo Seybold use - External Alcohol intake 2022-08-12 2022-08-12 Current drinker of Drew raroyo Seybold 00:00:00 00:00:00 alcohol (finding) - Exter nal Tobacco use and 2022-05-12 2022-05-12 Smokeless tobacco Ke lsey Seybold exposure 00:00:00 00:00:00 non-user - External Exposure to 2020-12-26 2021-01-25 Not sure Azra Carrol d SARS-CoV-2 (event) 00:00:00 16:43:00 - Exte rnal History of Social 2020-01-18 2020-01-18 Azra Zacarias function 00:00:00 00:00:00 - External Sex [birth year] At [birth year] M Azra milton 00:00:00 00:00:00 - External Smoking Status Start Date Stop Date Source Occasional tobacco smoker 2022-05-12 00:00:00 Drew Zacarias - External Medications Ordered Filled Start Stop Current Ordering Indication Dosage Frequency Signature Comments Components Source Medication Medication Date Date Medication? Clinician (SIG) Name Name Methylpredn 2022- No [id number] 40mg Azra isolone 08-12 [id number] Seybold Acetate 21:15: 21:07 - (Depo-Medro 00 :00 Externa l) 40 mg/ml l - Physician Administere d (J1030) Methylpredn 0 2022- No [id number] 40mg 40 mg, Azra isolone 08-12 [id number] Physician Seyb old Acetate 21:15: 21:07 Administer - (Depo-Medro 00 :00 ed, ONCE, Ext michael l) 40 mg/ml 1 dose, On l - Physician Mon08/12/22 Administere at 1615 d (J1030) methylPREDN 0 Yes 1{mayelin} Take 1 mayelin Azra ISolone 6-16 by mouth Seybold (Medrol) 4 00:00: See Admin - MG oral 00 Instructio Canine Service Instructor Trainer a Tablet ns Use as l Therapy directed. Pack Diclofenac 0 Yes 75mg Take 1 Kelse y Sodium 75 6-16 tablet (75 Seyb old MG oral 00:00: mg total) - Tablet 00 by mouth 2 Externa Delayed times l Response daily methylPREDN 2022-0 Yes 1{mayelin} Take 1 mayelin Azra ISolone 6-16 by mouth Seybold (Medrol) 4 00:00: See Admin - MG oral 00 Instructio Canine Service Instructor Trainer a Tablet ns Use as l Therapy directed. Pack Diclofenac 0 Yes 75mg Take 1 Kelse y Sodium 75 6-16 tablet (75 Seyb old MG oral 00:00: mg total) - Tablet 00 by mouth 2 Externa Delayed times l Response daily Testosteron 2022-2022- No [id number] 200mg Azra e Cypionate 3-26 11- Seybold (DEPO-TESTO 05:00: 04:59 - STERONE) 00 :00 Externa 200 mg/mL - l Every 14 Days Testosteron 2022- No [id number] 200mg Azra e Cypionate 3-26 11- Seybold (DEPO-TESTO 05:00: 04:59 - STERONE) 00 :00 Externa 200 mg/mL - l Every 14 Days Testosteron 2022- No [id number] 200mg Azra e Cypionate 3-11-22 Seybold (DEPO-TESTO 05:00: 04:59 - STERONE) 00 :00 Externa 200 mg/mL - l Every 14 Days Amoxicillin Yes [id number] 1{tbl} Take 1 Azra -Pot 3-02 tablet by Seybold Clavulanate 00:00: mouth 2 - 875-125 MG 00 times Externa oral Tablet daily l Amoxicillin Yes [id number] 1{tbl} Take 1 Azra -Pot 3-02 tablet by Seybold Clavulanate 00:00: mouth 2 - 875-125 MG 00 times Externa oral Tablet daily l Amoxicillin Yes [id number] 1{tbl} Take 1 Azra -Pot 3-02 tablet by Seybold Clavulanate 00:00: mouth 2 - 875-125 MG 00 times Externa oral Tablet daily l Testmclaren flint20222022- No [id number] 200mg Azra e Cypionate 1-30 -28 Seybold (DEPO-TESTO 20:30: 19:14 - STERONE) 00 :00 Externa 200 mg/mL - l Every 14 Days Testosteron 2022- No [id number] 200mg Azra e Cypionate 1-30 03-20 Seybold (DEPO-TESTO 20:30: 21:08 - STERONE) 00 :13 Externa 200 mg/mL - l Every 14 Days Sildenafil Yes [id number] 100mg QD Take 1 Azra Citrate 1-30 tablet Seybold (Viagra) 00:00: (100 mg - 100 MG oral 00 total) by Ext michael Tablet mouth l daily as needed for erectile dysfunctio n Sildenafil Yes [id number] 100mg QD Take 1 Azra Citrate 1-30 tablet Seybold (Viagra) 00:00: (100 mg - 100 MG oral 00 total) by Ext michael Tablet mouth l daily as needed for erectile dysfunctio n Sildenafil 0 Yes [id number] 100mg QD Take 1 Azra Citrate 1-30 tablet Seybold (Viagra) 00:00: (100 mg - 100 MG oral 00 total) by Ext michael Tablet mouth l daily as needed for erectile dysfunctio n Sildenafil Yes [id number] 100mg QD Take 1 Azra Citrate 1-30 tablet Seybold (Viagra) 00:00: (100 mg - 100 MG oral 00 total) by Ext michael Tablet mouth l daily as needed for erectile dysfunctio n Benzonatate 2021-02 Yes [id number] 100mg Q.[id number] Take 1 Azra (Tessalon 2-22 [id number] capsule Seybold Perles) 100 00:00: 3D (100 mg - MG oral 00 total) by Externa Capsule mouth 3 l times daily as needed for cough Benzonatate 2021-02 Yes [id number] 100mg Q.[id number] Take 1 Azra (Tessalon 2-22 38171 [id number] capsule Seybold Perles) 100 00:00: 3D (100 mg - MG oral 00 total) by Externa Capsule mouth 3 l times daily as needed for cough Benzonatate 2021-02 Yes [id number] 100mg Q.[id number] Take 1 Azra (Tessalon 2-22 09770 [id number] capsule Seybold Perles) 100 00:00: 3D (100 mg - MG oral 00 total) by Externa Capsule mouth 3 l times daily as needed for cough Ondansetron 2021-02 Yes Azra HCl 4 MG 2-22 Seybold oral Tablet 00:00: - 00 Externa l Benzonatate 2021-02 Yes [id number] 100mg Q.[id number] Take 1 Azra (Tessalon 2-22 46345 [id number] capsule Seybold Perles) 100 00:00: 3D (100 mg - MG oral 00 total) by Externa Capsule mouth 3 l times daily as needed for cough Ondansetron 2021-02 Yes Azra HCl 4 MG 2-22 Seybold oral Tablet 00:00: - 00 Externa l Benzonatate 2021-02 Yes [id number] 100mg Q.[id number] Take 1 Azra (Tessalon - 68215 [id number] capsule Seybold Perles) 100 00:00: 3D (100 mg - MG oral 00 total) by Externa Capsule mouth 3 l times daily as needed for cough Ondansetron 2021-02 Yes Azra HCl 4 MG 2-22 Seybold oral Tablet 00:00: - 00 Externa l PAXLOVID 2021-02- No [id number] Take two Azra STANDARD 03-30 [id number] 150 mg Seybold (30) 00:00: 05:59 nirmatrelv - (300/100) 00 :00 ir (pink) Exter na Therapy tablets l Pack with one 100 mg ritonavir (white) tablet by mouth two times daily for 5 days Ondansetron 2021-02- No [id number] 4mg Q.[id number] Take 1 Azra HCl 4 MG -01-27 29019 [id number] tablet (4 Seybold oral Tablet 00:00: 00:00 3D mg total) - 00 :00 by mouth Externa every 8 l hours as needed for nausea Testosteron 2021-2022- No [id number] 200mg Azra e Cypionate 08-07 Seybold (DEPO-TESTO 05:00: 05:59 - STERONE) 00 :00 Externa 200 mg/mL - l Every 14 Days Albuterol Yes [id number] 1.25mg Q.25D Take 3 mL Azra Sulfate 6-15 (1.25 mg Seybold 1.25 MG/3ML 00:00: total) by - inhalation 00 nebulizati Ext michael Inhalant on every 6 l Solution hours as needed for wheezing Albuterol Yes [id number] 2{puff} Q.25D Inhale 2 Azra HFA 108 (90 6-15 puffs into Se ybold Base) 00:00: the lungs - MCG/ACT IN 00 every 6 Canine Service Instructor Trainer a AERS hours as l needed for wheezing --brand to be determined by insurance coverage Albuterol Yes [id number] 1.25mg Q.25D Take 3 mL Azra Sulfate 6-15 (1.25 mg Seybold 1.25 MG/3ML 00:00: total) by - inhalation 00 nebulizati Ext michael Inhalant on every 6 l Solution hours as needed for wheezing Albuterol Yes [id number] 2{puff} Q.25D Inhale 2 Azra HFA 108 (90 6-15 puffs into Se ybold Base) 00:00: the lungs - MCG/ACT IN 00 every 6 Canine Service Instructor Trainer a AERS hours as l needed for wheezing --brand to be determined by insurance coverage Albuterol Yes [id number] 1.25mg Q.25D Take 3 mL Azra Sulfate 6-15 (1.25 mg Seybold 1.25 MG/3ML 00:00: total) by - inhalation 00 nebulizati Ext michael Inhalant on every 6 l Solution hours as needed for wheezing Albuterol Yes [id number] 2{puff} Q.25D Inhale 2 Azra HFA 108 (90 6-15 puffs into Se ybold Base) 00:00: the lungs - MCG/ACT IN 00 every 6 Canine Service Instructor Trainer a AERS hours as l needed for wheezing --brand to be determined by insurance coverage Albuterol Yes [id number] 1.25mg Q.25D Take 3 mL Azra Sulfate 6-15 (1.25 mg Seybold 1.25 MG/3ML 00:00: total) by - inhalation 00 nebulizati Ext michael Inhalant on every 6 l Solution hours as needed for wheezing Albuterol Yes [id number] 2{puff} Q.25D Inhale 2 Azra HFA 108 (90 6-15 puffs into Se ybold Base) 00:00: the lungs - MCG/ACT IN 00 every 6 Canine Service Instructor Trainer a AERS hours as l needed for wheezing --brand to be determined by insurance coverage Albuterol Yes [id number] 1.25mg Q.25D Take 3 mL Azra Sulfate 6-15 (1.25 mg Seybold 1.25 MG/3ML 00:00: total) by - inhalation 00 nebulizati Ext michael Inhalant on every 6 l Solution hours as needed for wheezing Albuterol Yes [id number] 2{puff} Q.25D Inhale 2 Azra HFA 108 (90 6-15 puffs into Se ybold Base) 00:00: the lungs - MCG/ACT IN 00 every 6 Canine Service Instructor Trainer a AERS hours as l needed for wheezing --brand to be determined by insurance coverage Amoxicillin 2021- No [id number] 1{tbl} Take 1 Azra -Pot 6-15 -22 tablet by Seybold Clavulanate 00:00: 00:00 mouth in - 875-125 MG 00 :00 the Externa oral Tablet morning l and 1 tablet in the evening. methylPREDN 2021- No [id number] 1{mayelin} Take 1 mayelin Azra ISolone 4 6-15 - by mouth Seybo ld MG oral 00:00: 00:00 See Admin - Tablet 00 :00 Instructio Externa Therapy ns Use as l Pack directed Sildenafil Yes [id number] 100mg QD Take 1 Azra Citrate 2-10 tablet Seybold (Viagra) 00:00: (100 mg - 100 MG oral 00 total) by Ext michael Tablet mouth l daily as needed for erectile dysfunctio n Sildenafil 2022- No [id number] 100mg QD Take 1 Azra Citrate 2-10 01-30 tablet Seybold (Viagra) 00:00: 00:00 (100 mg - 100 MG oral 00 :00 total) by Ext michael Tablet mouth l daily as needed for erectile dysfunctio n Testosteron 2021- No [id number] 200mg Azra e Cypionate 1-11 08-09 Seybold (DEPO-TESTO 19:26: 18:29 STERONE) 31 :00 200 mg/mL - Every 14 Days Sildenafil Yes [id number] 100mg Q24H Take 1 Azra Citrate 1-11 tablet Seybold (Viagra) 00:00: (100 mg 100 MG oral 00 total) by Tablet mouth daily as needed for erectile dysfunctio n Ketorolac 2020-02- No [id number] 60mg Ke lsey Tromethamin 02-07 Seybold e (TORADOL) 17:00: 17:04 60 mg/2 mL 00 :00 Ketorolac 2020-02- No [id number] 60mg 60 mg, Azra Tromethamin 02-07 intramuscu S eybold e (TORADOL) 17:00: 17:04 lar, ONCE, 60 mg/2 mL 00 :00 On Mon12/08/20 at 1200, For 1 dose Celecoxib 2020-02 Yes [id number] TAKE 1 K elsey 200 MG oral - CAPSULE(20 Se ybold Capsule 00:00: 0 MG) BY 00 MOUTH TWICE DAILY Celecoxib 2020-02 Yes [id number] TAKE 1 K elsey 200 MG oral 02-06 CAPSULE(20 Se ybold Capsule 00:00: 0 MG) BY 00 MOUTH TWICE DAILY Ketorolac 2020-02- No [id number] 60mg Ke lsey Tromethamin 0-05 10-05 Seybold e (TORADOL) 21:15: 21:15 60 mg/2 mL 00 :00 Ketorolac 2020-02- No [id number] 60mg 60 mg, Azra Tromethamin 0-05 10-05 intramuscu S eybold e (TORADOL) 21:15: 21:15 lar, ONCE, 60 mg/2 mL 00 :00 On Mon11/10/20 at 1615, For 1 dose Cyclobenzap 2020-02 Yes [id number] 10mg Q.[id number] Take 1 Azra rine HCl 10 0-05 [id number] tablet (10 Seybold MG oral 00:00: 3D mg total) Tablet 00 by mouth 3 times daily as needed for muscle spasms Cyclobenzap 2020-02 Yes [id number] 10mg Q.[id number] Take 1 Azra rine HCl 10 0-05 [id number] tablet (10 Seybold MG oral 00:00: 3D mg total) Tablet 00 by mouth 3 times daily as needed for muscle spasms Celecoxib 2020-02 Yes [id number] 200mg Take 1 Azra (CeleBREX) 0-05 capsule Seybol d 200 MG oral 00:00: (200 mg Capsule 00 total) by mouth 2 times daily Cyclobenzap 2020-02 Yes [id number] 10mg Q.[id number] Take 1 Azra rine HCl 10 0-05 [id number] tablet (10 Seybold MG oral 00:00: 3D mg total) Tablet 00 by mouth 3 times daily as needed for muscle spasms Cyclobenzap 2020-02- No [id number] 10mg Q.[id number] Take 1 Azra rine HCl 10 0-05 12- [id number] tablet (10 Seybold MG oral 00:00: 00:00 3D mg total) - Tablet 00 :00 by mouth 3 Externa times l daily as needed for muscle spasms Testosteron 2021- No [id number] 200mg Azra e Cypionate 07-28 Seybold (DEPO-TESTO 05:00: 05:59 STERONE) 00 :00 200 mg/mL - Every 14 Days Testosteron 2021- No [id number] 200mg Azra e Cypionate 07-28 Seybold (DEPO-TESTO 05:00: 05:59 STERONE) 00 :00 200 mg/mL - Every 14 Days Testosteron 2021- No [id number] 200mg 200 mg, Azra e Cypionate 07-28 intramuscu S eybold (DEPO-TESTO 05:00: 05:59 lar, EVERY STERONE) 00 :00 14 DAYS, 200 mg/mL - 15 doses, Every 14 First dose Days on Mon07/28/20 at 0000, Last dose on Mon02/09/21 at 0000 Testosteron 2021- No [id number] 200mg Azra e Cypionate 07-28 Seybold (DEPO-TESTO 05:00: 05:59 STERONE) 00 :00 200 mg/mL - Every 14 Days Testosteron 2021- No [id number] 200mg 200 mg, Azra e Cypionate 07-28 intramuscu S eybold (DEPO-TESTO 05:00: 05:59 lar, EVERY STERONE) 00 :00 14 DAYS, 200 mg/mL - 15 doses, Every 14 First dose Days on Mon07/28/20 at 0000, Last dose on Mon02/09/21 at 0000 Sildenafil 2020-0 Yes [id number] 100mg Q24H Take 1 Azra Citrate 6-21 tablet Seybold (Viagra) 00:00: (100 mg 100 MG oral 00 total) by Tablet mouth daily as needed for erectile dysfunctio n Sildenafil 2020-0 Yes [id number] 100mg Q24H Take 1 Azra Citrate 6-21 tablet Seybold (Viagra) 00:00: (100 mg 100 MG oral 00 total) by Tablet mouth daily as needed for erectile dysfunctio n Sildenafil 2020-2021- No [id number] 100mg Q24H Take 1 Azra Citrate 6-21 -11 tablet Seybold (Viagra) 00:00: 00:00 (100 mg 100 MG oral 00 :00 total) by Tablet mouth daily as needed for erectile dysfunctio n Ciprofloxac 2020- Yes 500mg Take 1 Sergo sey in HCl 6-18 tablet Seybold (Cipro) 500 00:00: (500 mg MG oral 00 total) by Tablet mouth 2 times daily Ciprofloxac 2020-0 Yes 500mg Take 1 Sergo sey in HCl 6-18 tablet Seybold (Cipro) 500 00:00: (500 mg MG oral 00 total) by Tablet mouth 2 times daily Ciprofloxac 2020-0 Yes 500mg Take 1 Sergo sey in HCl 6-18 tablet Seybold (Cipro) 500 00:00: (500 mg MG oral 00 total) by Tablet mouth 2 times daily Testosteron 2021- No [id number] 200mg Azra e Cypionate 602-18 Seybold (DEPO-TESTO 14:45: 15:59 STERONE) 00 :00 200 mg/mL - Every 14 Days Testosteron 2021- No [id number] 200mg Azra e Cypionate 602-18 Seybold (DEPO-TESTO 14:45: 15:59 STERONE) 00 :00 200 mg/mL - Every 14 Days Testosteron 2021- No [id number] 200mg Azra e Cypionate 6-17 01-13 Seybold (DEPO-TESTO 14:45: 15:59 STERONE) 00 :00 200 mg/mL - Every 14 Days Hydrocort-P Yes [id number] 1{ampul Apply 1 Azra ramoxine, 6-15 e} ampule Seybold Perianal, 00:00: rectally 2 (Proctofoam 00 to 3 times HC) 1-1 % daily apply externally Foam Hydrocort-P Yes [id number] 1{ampul Apply 1 Azra ramoxine, 6-15 e} ampule Seybold Perianal, 00:00: rectally 2 - (Proctofoam 00 to 3 times Ex terna HC) 1-1 % daily l apply externally Foam Hydrocort-P Yes [id number] 1{ampul Apply 1 Azra ramoxine, 6-15 e} ampule Seybold Perianal, 00:00: rectally 2 - (Proctofoam 00 to 3 times Ex terna HC) 1-1 % daily l apply externally Foam Hydrocort-P Yes [id number] 1{ampul Apply 1 Azra ramoxine, 6-15 e} ampule Seybold Perianal, 00:00: rectally 2 - (Proctofoam 00 to 3 times Ex terna HC) 1-1 % daily l apply externally Foam Hydrocort-P Yes [id number] 1{ampul Apply 1 Azra ramoxine, 6-15 e} ampule Seybold Perianal, 00:00: rectally 2 - (Proctofoam 00 to 3 times Ex terna HC) 1-1 % daily l apply externally Foam Hydrocort-P Yes [id number] 1{ampul Apply 1 Azra ramoxine, 6-15 e} ampule Seybold Perianal, 00:00: rectally 2 - (Proctofoam 00 to 3 times Ex terna HC) 1-1 % daily l apply externally Foam Hydrocort-P Yes [id number] 1{ampul Apply 1 Azra ramoxine, 6-15 e} ampule Seybold Perianal, 00:00: rectally 2 (Proctofoam 00 to 3 times HC) 1-1 % daily apply externally Foam Hydrocort-P Yes [id number] 1{ampul Apply 1 Azra ramoxine, 6-15 e} ampule Seybold Perianal, 00:00: rectally 2 (Proctofoam 00 to 3 times HC) 1-1 % daily apply externally Foam Metronidazo Yes 500mg Take 500 K elsey le 500 MG 6-10 mg by Seybold oral Tablet 00:00: mouth 00 every 8 hours Ciprofloxac Yes 500mg Take 500 K elsey in HCl 500 6-10 mg by Seybold MG oral 00:00: mouth 2 Tablet 00 times daily Ondansetron Yes DISSOLVE 1 Azra (ZOFRAN) 4 6-10 TABLET ON Seyb old MG oral 00:00: THE TONGUE TABLET 00 EVERY 6 DISPERSIBLE HOURS NEEDED FOR NAUSEA OR VOMITING Ondansetron Yes DISSOLVE 1 Azra (ZOFRAN) 4 6-10 TABLET ON Seyb old MG oral 00:00: THE TONGUE - TABLET 00 EVERY 6 Externa DISPERSIBLE HOURS l NEEDED FOR NAUSEA OR VOMITING Ondansetron Yes DISSOLVE 1 Azra (ZOFRAN) 4 6-10 TABLET ON Seyb old MG oral 00:00: THE TONGUE - TABLET 00 EVERY 6 Externa DISPERSIBLE HOURS l NEEDED FOR NAUSEA OR VOMITING Ondansetron Yes DISSOLVE 1 Azra (ZOFRAN) 4 6-10 TABLET ON Seyb old MG oral 00:00: THE TONGUE - TABLET 00 EVERY 6 Externa DISPERSIBLE HOURS l NEEDED FOR NAUSEA OR VOMITING Ondansetron Yes DISSOLVE 1 Azra (ZOFRAN) 4 6-10 TABLET ON Seyb old MG oral 00:00: THE TONGUE - TABLET 00 EVERY 6 Externa DISPERSIBLE HOURS l NEEDED FOR NAUSEA OR VOMITING Ondansetron Yes DISSOLVE 1 Azra (ZOFRAN) 4 6-10 TABLET ON Seyb old MG oral 00:00: THE TONGUE - TABLET 00 EVERY 6 Externa DISPERSIBLE HOURS l NEEDED FOR NAUSEA OR VOMITING Metronidazo Yes 500mg Take 500 K elsey le 500 MG 6-10 mg by Seybold oral Tablet 00:00: mouth 00 every 8 hours Ciprofloxac Yes 500mg Take 500 K elsey in HCl 500 6-10 mg by Seybold MG oral 00:00: mouth 2 Tablet 00 times daily Ondansetron Yes DISSOLVE 1 Azra (ZOFRAN) 4 6-10 TABLET ON Seyb old MG oral 00:00: THE TONGUE TABLET 00 EVERY 6 DISPERSIBLE HOURS NEEDED FOR NAUSEA OR VOMITING Metronidazo Yes 500mg Take 500 K elsey le 500 MG 6-10 mg by Seybold oral Tablet 00:00: mouth 00 every 8 hours Ciprofloxac Yes 500mg Take 500 K elsey in HCl 500 6-10 mg by Seybold MG oral 00:00: mouth 2 Tablet 00 times daily Ondansetron Yes DISSOLVE 1 Azra (ZOFRAN) 4 6-10 TABLET ON Seyb old MG oral 00:00: THE TONGUE TABLET 00 EVERY 6 DISPERSIBLE HOURS NEEDED FOR NAUSEA OR VOMITING Metronidazo 0 2021- No 500mg Take 500 Azra le 500 MG 6-10 12-22 mg by Seybold oral Tablet 00:00: 00:00 mouth - 00 :00 every 8 Externa hours l Ciprofloxac 0 2021- No 500mg Take 500 Azra in HCl 500 6-10 12-22 mg by Seybold MG oral 00:00: 00:00 mouth 2 - Tablet 00 :00 times Externa daily l Albuterol Yes [id number] 2{puff} Q6H Inhale 2 Azra HFA 108 (90 5-27 puffs into Se ybold Base) 00:00: the lungs MCG/ACT IN 00 every 6 AERS hours as needed for wheezing --brand to be determined by insurance coverage Albuterol Yes [id number] 2{puff} Q6H Inhale 2 Azra HFA 108 (90 5-27 puffs into Se ybold Base) 00:00: the lungs MCG/ACT IN 00 every 6 AERS hours as needed for wheezing --brand to be determined by insurance coverage Albuterol Yes [id number] 2{puff} Q6H Inhale 2 Azra HFA 108 (90 5-27 puffs into Se ybold Base) 00:00: the lungs MCG/ACT IN 00 every 6 AERS hours as needed for wheezing --brand to be determined by insurance coverage Sildenafil 2020- No [id number] 100mg QD Take 1 Azra Citrate 07-14- tablet Seybold (VIAGRA) 00:00: 00:00 (100 mg - 100 MG oral 00 :00 total) by Ext michael Tab mouth l daily as needed for erectile dysfunctio n Testosteron 2020- No [id number] 300mg Inject 300 Azra e Cypionate 07-14-04 mg into Seyb old (DEPO-TESTO 00:00: 00:00 the muscle - STERONE) 00 :00 every 14 Externa 200 MG/ML days l intramuscul ar Solution Fluocinolon 2020- No 3 drops to Azra e Acetonide 06-06-15 affected Jamye bill (DERMOTIC) 00:00: 00:00 ear BID - 0.01 % otic 00 :00 for max 5 Ext michael Oil days l Sildenafil 2020- No Use as Jes ey Citrate 3-25 02-04 directed Seybold (VIAGRA) 00:00: 00:00 - 100 MG oral 00 :00 Externa Tab l FLUTICASONE 2017-02 Yes [id number] 2{spray Use 2 Azra PROPIONATE, 1-06 } (two) Seybold NASAL, 50 00:00: sprays in MCG/ACT 00 each nasal nostril Suspension daily FLUTICASONE 2017-02 Yes [id number] 2{spray Use 2 Azra PROPIONATE, 1-06 } (two) Seybold NASAL, 50 00:00: sprays in - MCG/ACT 00 each Externa nasal nostril l Suspension daily FLUTICASONE 2017-02 Yes [id number] 2{spray Use 2 Azra PROPIONATE, 1-06 } (two) Seybold NASAL, 50 00:00: sprays in - MCG/ACT 00 each Externa nasal nostril l Suspension daily FLUTICASONE 2017-02 Yes [id number] 2{spray Use 2 Azra PROPIONATE, 1-06 } (two) Seybold NASAL, 50 00:00: sprays in - MCG/ACT 00 each Externa nasal nostril l Suspension daily FLUTICASONE 2017-02 Yes [id number] 2{spray Use 2 Azra PROPIONATE, 1-06 } (two) Seybold NASAL, 50 00:00: sprays in - MCG/ACT 00 each Externa nasal nostril l Suspension daily FLUTICASONE 2017-02 Yes [id number] 2{spray Use 2 Azra PROPIONATE, 1-06 } (two) Seybold NASAL, 50 00:00: sprays in - MCG/ACT 00 each Externa nasal nostril l Suspension daily FLUTICASONE 2017-02 Yes [id number] 2{spray Use 2 Azra PROPIONATE, 1-06 } (two) Seybold NASAL, 50 00:00: sprays in - MCG/ACT 00 each Externa nasal nostril l Suspension daily FLUTICASONE 2017-02 Yes [id number] 2{spray Use 2 Azra PROPIONATE, 1-06 } (two) Seybold NASAL, 50 00:00: sprays in MCG/ACT 00 each nasal nostril Suspension daily FLUTICASONE 2017-02 Yes [id number] 2{spray Use 2 Azra PROPIONATE, 1-06 } (two) Seybold NASAL, 50 00:00: sprays in MCG/ACT 00 each nasal nostril Suspension daily Albuterol 2017-02- No [id number] 2{puff} Q.25D Inhale 2 Azra HFA 108 (90 02-11 (two) Seybol d Base) 00:00: 00:00 puffs into - MCG/ACT IN 00 :00 the lungs Exte rna AERS every 6 l hours as needed for wheezing --brand to be determined by insurance coverage Immunizations Ordered Immunization Filled Immunization Date Status Commen ts Source Name Name Influenza Virus 2022-01-04 Completed Azra Se ybold Vaccine, age 6 00:00:00 - External months and up Influenza Virus 2022-01-04 Completed Azra Se ybold Vaccine, age 6 00:00:00 - External months and up Influenza Virus 2022-01-04 Completed Azra Se ybold Vaccine, age 6 00:00:00 - External months and up Influenza Virus 2022-01-04 Completed Azra Se ybold Vaccine, age 6 00:00:00 - External months and up Influenza Virus 2022-01-04 Completed Azra Se ybold Vaccine, age 6 00:00:00 - External months and up Covid-19 Vaccine 2021-01-05 Completed Azra dupont (Lecere), Mrna-lnp, 00:00:00 Wes Protein, Pf, 30mcg/0.3ml,IM Covid-19 Vaccine 2021-01-05 Completed Azra dupont (Lecere), Mrna-lnp, 00:00:00 - Ext ernal Wes Protein, Pf, 30mcg/0.3ml,IM Covid-19 Vaccine 2021-01-05 Completed Azra dupont (Lecere), Mrna-lnp, 00:00:00 - Ext ernal Wes Protein, Pf, 30mcg/0.3ml,IM Covid-19 Vaccine 2021-01-05 Completed Azra dupont (Lecere), Mrna-lnp, 00:00:00 - Ext ernal Wes Protein, Pf, 30mcg/0.3ml,IM Covid-19 Vaccine 2021-01-05 Completed Azra dupont (Lecere), Mrna-lnp, 00:00:00 - Ext ernal Wes Protein, Pf, 30mcg/0.3ml,IM Covid-19 Vaccine 2021-01-05 Completed Azra dupont (Lecere), Mrna-lnp, 00:00:00 - Ext ernal Wes Protein, Pf, 30mcg/0.3ml,IM Covid-19 Vaccine 2020-03-17 Completed Azra dupont (Moderna), Mrna-lnp, 00:00:00 Wes Protein, Pf, 100 Mcg/0.5ml,IM Covid-19 Vaccine 2020-03-17 Completed Azra dupont Moderna (Spikevax), 00:00:00 - Ext ernal Mrna-lnp, Wes Protein, Pf Covid-19 Vaccine 2020-03-17 Completed Azra dupont Moderna (Spikevax), 00:00:00 - Ext ernal Mrna-lnp, Wes Protein, Pf Covid-19 Vaccine 2020-03-17 Completed Azra dupont Moderna (Spikevax), 00:00:00 - Ext ernal Mrna-lnp, Wes Protein, Pf Covid-19 Vaccine 2020-03-17 Completed Azra dupont Moderna (Spikevax), 00:00:00 - Ext ernal Mrna-lnp, Wes Protein, Pf Covid-19 Vaccine 2020-03-17 Completed Azra dupont Moderna (Spikevax), 00:00:00 - Ext ernal Mrna-lnp, Wes Protein, Pf Covid-19 Vaccine 2020-03-17 Completed Azra dupont (Moderna), Mrna-lnp, 00:00:00 Wes Protein, Pf, 100 Mcg/0.5ml,IM Covid-19 Vaccine 2020-03-17 Completed Azra dupont (Moderna), Mrna-lnp, 00:00:00 Wes Protein, Pf, 100 Mcg/0.5ml,IM Covid-19 Vaccine 2020-02-18 Completed Azra dupont (Moderna), Mrna-lnp, 00:00:00 Wes Protein, Pf, 100 Mcg/0.5ml,IM Covid-19 Vaccine 2020-02-18 Completed Azra dupont Moderna (Spikevax), 00:00:00 - Ext ernal Mrna-lnp, Wes Protein, Pf Covid-19 Vaccine 2020-02-18 Completed Azra dupont Moderna (Spikevax), 00:00:00 - Ext ernal Mrna-lnp, Wes Protein, Pf Covid-19 Vaccine 2020-02-18 Completed Azra dupont Moderna (Spikevax), 00:00:00 - Ext ernal Mrna-lnp, Wes Protein, Pf Covid-19 Vaccine 2020-02-18 Completed Azra dupont Moderna (Spikevax), 00:00:00 - Ext ernal Mrna-lnp, Wes Protein, Pf Covid-19 Vaccine 2020-02-18 Completed Azra dupont Moderna (Spikevax), 00:00:00 - Ext ernal Mrna-lnp, Wes Protein, Pf Covid-19 Vaccine 2020-02-18 Completed Azra dupont (Moderna), Mrna-lnp, 00:00:00 Wes Protein, Pf, 100 Mcg/0.5ml,IM Covid-19 Vaccine 2020-02-18 Completed Azra dupont (Moderna), Mrna-lnp, 00:00:00 Wes Protein, Pf, 100 Mcg/0.5ml,IM Influenza Virus 2019-11-15 Completed Azra Se ybold Vaccine, No Preserv, 00:00:00 age 6 months and up Influenza Virus 2019-11-15 Completed Azra Se ybold Vaccine, Unspecified 00:00:00 Formulation Influenza Virus 2019-11-15 Completed Azra Se ybold Vaccine, No Preserv, 00:00:00 - Ex ternal age 6 months and up Influenza Virus 2019-11-15 Completed Azra Se ybold Vaccine, Unspecified 00:00:00 - Ex ternal Formulation Influenza Virus 2019-11-15 Completed Azra Se ybold Vaccine, No Preserv, 00:00:00 - Ex ternal age 6 months and up Influenza Virus 2019-11-15 Completed Azra Se ybold Vaccine, Unspecified 00:00:00 - Ex ternal Formulation Influenza Virus 2019-11-15 Completed Azra Se ybold Vaccine, No Preserv, 00:00:00 - Ex ternal age 6 months and up Influenza Virus 2019-11-15 Completed Azra Se ybold Vaccine, Unspecified 00:00:00 - Ex ternal Formulation Influenza Virus 2019-11-15 Completed Azra Se ybold Vaccine, No Preserv, 00:00:00 - Ex ternal age 6 months and up Influenza Virus 2019-11-15 Completed Azra Se ybold Vaccine, Unspecified 00:00:00 - Ex ternal Formulation Influenza Virus 2019-11-15 Completed Azra Se ybold Vaccine, No Preserv, 00:00:00 - Ex ternal age 6 months and up Influenza Virus 2019-11-15 Completed Azra Se ybold Vaccine, Unspecified 00:00:00 - Ex ternal Formulation Influenza Virus 2019-11-15 Completed Azra Se ybold Vaccine, No Preserv, 00:00:00 - Ex ternal age 6 months and up Influenza Virus 2019-11-15 Completed Azra Se ybold Vaccine, Unspecified 00:00:00 - Ex ternal Formulation Influenza Virus 2019-11-15 Completed Azra Se ybold Vaccine, No Preserv, 00:00:00 age 6 months and up Influenza Virus 2019-11-15 Completed Azra Se ybold Vaccine, Unspecified 00:00:00 Formulation Influenza Virus 2019-11-15 Completed Azra Se ybold Vaccine, No Preserv, 00:00:00 age 6 months and up Influenza Virus 2019-11-15 Completed Azra Delcid ybold Vaccine, Unspecified 00:00:00 Formulation Influenza Virus 2018-12-24 Completed Azra Delcid ybold Vaccine, Unspecified 00:00:00 Formulation Influenza Virus 2018-12-24 Completed Azra Delcid ybold Vaccine, Unspecified 00:00:00 - Ex ternal Formulation Influenza Virus 2018-12-24 Completed Azra Delcid ybold Vaccine, Unspecified 00:00:00 - Ex ternal Formulation Influenza Virus 2018-12-24 Completed Azra Delcid ybold Vaccine, Unspecified 00:00:00 - Ex ternal Formulation Influenza Virus 2018-12-24 Completed Azra Delcid ybold Vaccine, Unspecified 00:00:00 - Ex ternal Formulation Influenza Virus 2018-12-24 Completed Azra Delcid ybold Vaccine, Unspecified 00:00:00 - Ex ternal Formulation Influenza Virus 2018-12-24 Completed Azra Delcid ybold Vaccine, Unspecified 00:00:00 - Ex ternal Formulation Influenza Virus 2018-12-24 Completed Azra Delcid ybold Vaccine, Unspecified 00:00:00 Formulation Influenza Virus 2018-12-24 Completed Azra Delcid ybold Vaccine, Unspecified 00:00:00 Formulation Vital Signs Vital Name Observation Time Observation Value Comments Source Body height 2022-07-22 19:23:00 182.9 cm Azra luobold - External Body weight 2022-07-22 19:23:00 116.574 kg Azra Webb eybold - External BMI 2022-07-22 19:23:00 34.86 kg/m2 Azra Webb eybold - External Systolic blood 2022-04-25 20:39:00 144 mm[Hg] Azra Seybold - pressure External Diastolic blood 2022-04-25 20:39:00 88 mm[Hg] Nadia y Seybold - pressure External Heart rate 2022-04-25 20:39:00 80 /min Azra Webb eybold - External Body temperature 2022-04-25 20:39:00 36.72 Venus Jes luo Seybold - External Respiratory rate 2022-04-25 20:39:00 19 /min Jes ey Seybold - External Body height 2022-04-25 20:39:00 182.9 cm Azra luobold - External Body weight 2022-04-25 20:39:00 116.574 kg Azra Webb eybold - External BMI 2022-04-25 20:39:00 34.86 kg/m2 Azra luobold - External Oxygen saturation in 2022-04-25 20:39:00 96 /min Azra Zacarias - Arterial blood by External Pulse oximetry Systolic blood 2020-12-08 16:16:00 136 mm[Hg] Azra Seybold pressure Diastolic blood 2020-12-08 16:16:00 92 mm[Hg] Kelse y Seybold pressure Body temperature 2020-12-08 16:16:00 36.44 Venus Jes ey Seybold Respiratory rate 2020-12-08 16:16:00 14 /min Jes ey Seybold Body height 2020-12-08 16:16:00 182.9 cm Azra Webb eybold Body weight 2020-12-08 16:16:00 117.935 kg Azra Webb eybold BMI 2020-12-08 16:16:00 35.26 kg/m2 Azra S eybold Systolic blood 2020-11-10 20:37:00 138 mm[Hg] Azra Seybold pressure Diastolic blood 2020-11-10 20:37:00 82 mm[Hg] Kelse y Seybold pressure Heart rate 2020-11-10 20:37:00 85 /min Azra Webb eybold Body temperature 2020-11-10 20:37:00 35.78 Venus Jes ey Seybold Respiratory rate 2020-11-10 20:37:00 16 /min Jes ey Seybold Body height 2020-11-10 20:37:00 182.9 cm Azra Webb eybold Body weight 2020-11-10 20:37:00 117.935 kg Arza Webb eybold BMI 2020-11-10 20:37:00 35.26 kg/m2 Azra Webb eybold Procedures This patient has no known procedures. Encounters Start End Encounter Admission Attending Care Care Encounter Source Date/Time Date/Time Type Type Clinicians Facility Department ID 2022-10-27 2022-10-27 Outpatient AZRA BARRIGA [id number] [facility] 14:00:00 14:00:00 NIKOLAY Seybo ld 2022-10-14 2022-10-14 Outpatient ERMA, RASHMI FIELDS AZRA [id number] [facility] 16:15:00 16:15:00 Seybol d 2022-09-30 2022-09-30 Outpatient ERMA, RASHMI MILLERSEY [id number] [facility] 16:15:00 16:15:00 Seybol d 2022-09-16 2022-09-16 Outpatient ERMA, RASHMI FIELDS [facility] [id number] [facility] 16:00:00 16:00:00 Seybol d 2022-09-02 2022-09-02 Outpatient ERMA, RASHMI FIELDS [facility] [id number] [facility] 14:00:00 14:00:00 Seybol d 2022-08-22 2022-08-22 Outpatient LETY, KORTNEY FIELDS [facility] [id number] [facility] 00:00:00 00:00:00 Seybol d 2022-08-18 2022-08-18 Outpatient ERMA, RASHMI FIELDS [facility] [id number] [facility] 16:00:00 16:00:00 Seybol d 2022-08-12 2022-08-12 Outpatient LETY, KORTNEY FIELDS [facility] [id number] [facility] 16:00:00 16:00:00 Seybol d 2022-08-12 2022-08-12 Outpatient LETY, KORTNEY FIELDS [facility] [id number] [facility] 00:00:00 00:00:00 Seybol d 2022-08-04 2022-08-04 Outpatient ERMA, RASHMI FIELDS [facility] [id number] [facility] 16:00:00 16:00:00 Seybol d 2022-08-02 2022-08-02 Outpatient LETY, KORTNEY MILLERJAYME FIELDS [id number] [facility] 00:00:00 00:00:00 Seybol d 2022-07-29 2022-07-29 Outpatient LETY, KORTNEY FIELDS [facility] [id number] [facility] 00:00:00 00:00:00 Seybol d 2022-07-28 2022-07-28 Outpatient LAB90 AZRA FIELDS [id number] [facility] 15:00:00 15:00:00 Seybol d 2022-07-22 2022-07-22 Outpatient KORTNEY DAVIDSONJAYME FIELDS [id number] [facility] 14:30:00 14:30:00 Seybol d 2022-07-22 2022-07-22 Outpatient AZRA FIELDS [id number] [facility] 14:10:00 14:10:00 Seybol d 2022-07-22 2022-07-22 Outpatient JUANJOSE [facility] FIELDS [id number] [facility] 00:00:00 00:00:00 LOREE Seybol d 2022-07-21 2022-07-21 Outpatient ERMA, RASHMI [facility] FIELDS [id number] [facility] 16:00:00 16:00:00 Seybol d 2022-07-07 2022-07-07 Outpatient ERMA, RASHMI [facility] FIELDS [id number] [facility] 16:00:00 16:00:00 Seybol d 2022-07-05 2022-07-05 Outpatient KORTNEY DAVIDSON [facility] FIELDS [id number] [facility] 00:00:00 00:00:00 Seybol d 2022-06-30 2022-06-30 Outpatient HUNDL [facility] FIELDS [id number] [facility] 00:00:00 00:00:00 PELON Seybol d 2022-06-23 2022-06-23 Outpatient ERMARASHMI [facility]RA FIELDS [id number] [facility] 16:00:00 16:00:00 Seybol d 2022-06-09 2022-06-09 Outpatient ERMA, RASHMI [facility] FIELDS [id number] [facility] 16:00:00 16:00:00 Seybol d 2022-05-26 2022-05-26 Outpatient ERMA, RASHMI [facility] FIELDS [id number] [facility] 16:00:00 16:00:00 Seybol d 2022-05-26 2022-05-26 Outpatient HUNDL [facility] FIELDS [id number] [facility] 00:00:00 00:00:00 PELON Seybol d 2022-05-26 2022-05-26 Outpatient AZRA FIELDS [id number] [facility] 00:00:00 00:00:00 Seybol d 2022-05-26 2022-05-26 Outpatient AZRA SOSASEY [id number] [facility] 00:00:00 00:00:00 PELON Seybol d 2022-05-12 2022-05-12 Outpatient ERMA, RASHMI FIELDS AZ[facility] [id number] [facility] 16:00:00 16:00:00 Seybol d 2022-04-28 2022-04-28 Outpatient ERMA, RASHMI FIELDS [facility] [id number] [facility] 16:00:00 16:00:00 Seybol d 2022-04-25 2022-04-25 Outpatient HENDAZRA PAGAN [facility] [id number] [facility] 15:45:00 15:45:00 NIKOLAY Seybo ld 2022-04-14 2022-04-14 Outpatient ERMA, RASHMI [facility] FIELDS [id number] [facility] 14:00:00 14:00:00 Seybol d 2022-04-14 2022-04-14 Outpatient GAL [facility]RA FIELDS [id number] [facility] 00:00:00 00:00:00 JAIRO Seybol d 2022-04-07 2022-04-07 Outpatient PREZAS [facility] FIELDS [id number] [facility] 00:00:00 00:00:00 [place] Seybol d 2022-04-07 2022-04-07 Outpatient PREZAS [facility]RA FIELDS [id number] [facility] 00:00:00 00:00:00 [place] Seybol d 2022-03-31 2022-03-31 Outpatient ERMA, RASHMI [facility]RA FIELDS [id number] [facility] 16:00:00 16:00:00 Seybol d 2022-03-17 2022-03-17 Outpatient ERMA, RASHMI [facility] FIELDS [id number] [facility] 16:15:00 16:15:00 Seybol d 2022-03-07 2022-03-07 Outpatient GAL AZRA FIELDS [id number] [facility] 14:00:00 14:00:00 JAIRO Seybol d 2022-03-03 2022-03-03 Outpatient ERMA, RASHMI [facility] FIELDS [id number] [facility] 16:15:00 16:15:00 Seybol d 2022-02-17 2022-02-17 Outpatient ERMA, RASHMI MILLERSEY [id number] [facility] 13:45:00 13:45:00 Seybol d 2022-02-03 2022-02-03 Outpatient ERMA, RASHMI MILLERSEY [id number] [facility] 13:30:00 13:30:00 Seybol d 2022-02-01 2022-02-01 Outpatient ERMA, RASHMI MILLERSEY [id number] [facility] 16:00:00 16:00:00 Seybol d 2022-01-27 2022-01-27 Outpatient PREZAS, AZRA MILLERSEY [id number] [facility] 15:30:00 15:30:00 [place] Seybol d 2022-01-27 2022-01-27 Outpatient PREZASAZRASEY [id number] [facility] 00:00:00 00:00:00 [place] Seybol d 2022-01-18 2022-01-18 Outpatient ERMA, RASHMI FIELDS AZRA [id number] [facility] 15:15:00 15:15:00 Seybol d 2022-01-04 2022-01-04 Outpatient ERMA, RASHMI MILLERSEY [id number] [facility] 15:30:00 15:30:00 Seybol d 2021-12-28 2021-12-28 Outpatient LAB AZRA AZRA [id number] [facility] 15:25:00 15:25:00 Seybol d 2021-12-21 2021-12-21 Outpatient ERMA, RASHMI FIELDS AZRA [id number] [facility] 16:15:00 16:15:00 Seybol d 2021-12-07 2021-12-07 Outpatient ERMA, RASHMI FIELDS AZ[facility] [id number] [facility] 08:00:00 08:00:00 Seybol d 2021-11-23 2021-11-23 Outpatient ERMA, RASHMI FIELDS AZRA [id number] [facility] 16:15:00 16:15:00 Seybol d 2021-11-09 2021-11-09 Outpatient ERMA, RASHMI FIELDS AZRA [id number] [facility] 14:30:00 14:30:00 Seybol d 2021-10-26 2021-10-26 Outpatient ERMA, RASHMI FIELDS AZRA [id number] [facility] 16:00:00 16:00:00 Seybol d 2021-10-12 2021-10-12 Outpatient ERMA, RASHMI MILLERSEY [id number] [facility] 11:00:00 11:00:00 Seybol d 2021-09-28 2021-09-28 Outpatient ERMA, RASHMI FIELDS [id number] [facility] 11:00:00 11:00:00 Seybol d 2021-09-14 2021-09-14 Outpatient ERMA, RASHMI FIELDS AZRA [id number] [facility] 11:15:00 11:15:00 Seybol d 2021-08-31 2021-08-31 Outpatient EMRA, RASHMI FIELDS [id number] [facility] 11:15:00 11:15:00 Seybol d 2021-08-17 2021-08-17 Outpatient ERMA, RASHMI FIELDS AZRA [id number] [facility] 16:15:00 16:15:00 Seybol d 2021-08-06 2021-08-06 [facility] FRANCESCO Hou [id number] [facility] 09:20:00 09:49:41 [facility] [id number] Seybold DIAGNOSTI [id number] [facility] [id number] 2021-08-03 2021-08-03 Outpatient ERMA, RASHMI MILLERSEY [id number] [facility] 16:15:00 16:15:00 Seybol d 2021-07-28 2021-07-28 Outpatient LAB90 AZRA AZRA [id number] [facility] 11:30:00 11:30:00 Seybol d 2021-07-28 2021-07-28 Outpatient AZRA BARRIGA AZRA [id number] [facility] 00:00:00 00:00:00 NIKOLAY Seybo ld 2021-07-21 2021-07-21 Outpatient ERMA, RASHMI FIELDS AZRA [id number] [facility] 16:15:00 16:15:00 Seybol d 2021-07-21 2021-07-21 Office Rashmi Carreon [id number] [facility] 14:00:00 14:15:00 Visit Barbara Sims [id number] Se ybold Somogyi [id number] 2021-07-21 2021-07-21 Outpatient VELMAAZRA SUNG [id number] [facility] 00:00:00 00:00:00 BARBARA Seybol d 2021-07-20 2021-07-20 Outpatient ERMA, RASHMI MILLERSEY [id number] [facility] 13:30:00 13:30:00 Seybol d 2021-07-07 2021-07-07 Outpatient ERMA, RASHMI MILLERSEY [id number] [facility] 16:15:00 16:15:00 Seybol d 2021-06-23 2021-06-23 Outpatient ERMA, RASHMI MILLERSEY [id number] [facility] 14:00:00 14:00:00 Seybol d 2021-06-22 2021-06-22 Outpatient ERMA, RASHMI MILLERSEY [id number] [facility] 16:15:00 16:15:00 Seybol d 2021-06-22 2021-06-22 Outpatient ERMA, RASHMI MILLERSEY [id number] [facility] 16:00:00 16:00:00 Seybol d 2021-06-08 2021-06-08 Outpatient ERMA, RASHMI MILLERSEY [id number] [facility] 16:00:00 16:00:00 Seybol d 2021-05-25 2021-05-25 Outpatient ERMA, RASHMI MILLERSEY [id number] [facility] 16:15:00 16:15:00 Seybol d 2021-05-11 2021-05-11 Outpatient ERMA, RASHMI MILLERSEY [id number] [facility] 16:00:00 16:00:00 Seybol d 2021-04-27 2021-04-27 Outpatient ERMA, RASHMI FIELDS AZRA [id number] [facility] 16:00:00 16:00:00 Seybol d 2021-04-13 2021-04-13 Outpatient ERMA, RASHMI MILLERSEY [id number] [facility] 16:00:00 16:00:00 Seybol d 2021-03-30 2021-03-30 Outpatient ERMA, RASHMI FIELDS AZRA [id number] [facility] 16:15:00 16:15:00 Seybol d 2021-03-18 2021-03-18 Outpatient AZRA BARRIGA AZRA [id number] [facility] 00:00:00 00:00:00 NIKOLAY Carro ld 2021-03-16 2021-03-16 Outpatient ERMA, RASHMI FIELDS AZRA [id number] [facility] 16:15:00 16:15:00 Seybol d 2021-03-02 2021-03-02 Outpatient ERMA, RASHMI FIELDS AZRA [id number] [facility] 15:00:00 15:00:00 Seybol d 2021-02-16 2021-02-16 Outpatient ERMA, RASHMI FIELDS AZAR [id number] [facility] 14:00:00 14:00:00 Seybol d 2021-02-16 2021-02-16 [facility] FRANCESCO READ [id number] [facility] 13:20:00 13:20:00 [facility] & [id number] Seybold DIAGNOSTI [id number] C KYBURZ [id number] 2021-02-04 2021-02-04 Outpatient AZRA BARRIGA AZRA [id number] [facility] 10:30:00 10:30:00 NIKOLAY arias 2021-02-02 2021-02-02 Outpatient ERMA, RASHMI FIELDS AZRA [id number] [facility] 16:15:00 16:15:00 Seybol d 2021-01-19 2021-01-19 Outpatient ERMA, RASHMI FIELDS AZRA [id number] [facility] 13:30:00 13:30:00 Seybol d 2021-01-05 2021-01-05 Outpatient ERMA, RASHMI FIELDS AZRA [id number] [facility] 15:45:00 15:45:00 Seybol d 2021-01-05 2021-01-05 Outpatient COVID-PFIZE AZRA FIELDS [id number] [facility] 11:45:00 11:45:00 Jayme DRAKE 2020-12-23 2020-12-23 Outpatient ERMA, RASHMI MILLERJAYME FIELDS [id number] [facility] 16:15:00 16:15:00 Seybol d 2020-12-08 2020-12-08 Outpatient RASHMI RITCHIE AZRA [id number] [facility] 16:15:00 16:15:00 Seybol d 2020-12-08 2020-12-08 Office Rashmi Carreon [id number] [facility] 10:30:57 11:00:57 Visit Barbara Sims [id number] Se ybold Somogyi [id number] 2020-11-25 2020-11-25 Outpatient AZRA MÉNDEZ AZRA [id number] [facility] 00:00:00 00:00:00 FAHIM Seybol d 2020-11-24 2020-11-24 Outpatient RASHMI RITCHIE AZRA [id number] [facility] 16:15:00 16:15:00 Seybol d 2020-11-10 2020-11-10 Office Rashmi Carreon [id number] [facility] 15:34:38 15:49:38 Visit Barbara Sims [id number] Se ybold Somogyi [id number] 2020-11-03 2020-11-03 Outpatient VALERIE FIELDS AZRA [id number] [facility] 09:20:00 09:20:00 Seybol d 2020-10-27 2020-10-27 Outpatient RASHMI RITCHIE AZRA [id number] [facility] 14:30:00 14:30:00 Seybol d 2020-10-20 2020-10-20 Outpatient RASHMI RITCHIEJAYME FIELDS [id number] [facility] 16:15:00 16:15:00 Seybol d 2020-10-19 2020-10-19 Outpatient VELMA AZRA FIELDS [id number] [facility] 00:00:00 00:00:00 BARBARA Seybol d 2020-10-06 2020-10-06 Outpatient RASHMI RITCHIE AZRA [id number] [facility] 14:45:00 14:45:00 Seybol d 2020-09-24 2020-09-24 Outpatient OMKARRAJANI Amador AZRA FIELDS [id number] [facility] 11:00:00 11:00:00 Seybol d 2020-09-22 2020-09-22 Outpatient RASHMI RITCHIEJAYME FIELDS [id number] [facility] 16:15:00 16:15:00 Seybol d 2020-09-14 2020-09-14 Outpatient RASHMI RITCHIE AZRA [id number] [facility] 16:15:00 16:15:00 Seybol d 2020-09-08 2020-09-08 Outpatient RASHMI RITCHIE AZRA FIELDS [id number] [facility] 16:15:00 16:15:00 Seybol d 2020-08-28 2020-08-28 Outpatient RAJANI ESPITIA [facility]RA FIELDS [id number] [facility] 00:00:00 00:00:00 Seybol d 2020-08-25 2020-08-25 Outpatient RASHMI RITCHIE AZRA FIELDS [id number] [facility] 16:15:00 16:15:00 Seybol d 2020-01-13 2020-01-13 Outpatient AZRA BARRIGA [id number] [facility] 15:30:00 15:30:00 NIKOLAY arias Results This patient has no known results.
[2022-10-04] MEDS ORDERED: NA CHLORIDE 0.9% 1,000 ML ONE (13:26)
[2022-10-04] MEDS ORDERED: ONDANSETRON 4 MG/2 ML VIAL ONE ×2 (13:26→15:15)
[2022-10-04] MEDS ORDERED: PIPERACIL/TAZO 3.375 GM VIAL IV ONE (13:26)
[2022-10-04] MEDS ORDERED: NA CHLORIDE 0.9% 100 ML ONE (13:26)
[2022-10-04] MEDS ORDERED: MORPHINE 4 MG/ML SYR ONE (13:26)
[2022-10-04 13:28] LABS: Absolute Lymphocytes (CBC) 0.6 K/uL (0.7-4.9); Lymphocytes % 2.8 % (15.3-44.8); MCV 94.8 fL (80-100); MPV 11.1 fL (7.6-11.3); Platelets 159 thou/uL (152-406); RBC Red Blood Cell Count 5.28 M/uL (4.33-5.43)
[2022-10-04 13:35] LABS: Protime INR 1.5
[2022-10-04 13:43] LABS: Albumin 3.6 g/dL (3.4-5.0); Bilirubin Total 1.7 mg/dL (0.2-1.0); Potassium 3.8 mEq/L (3.5-5.1)
[2022-10-04] MEDS ORDERED: FENTANYL CITR 100 MCG/2 ML ONE (14:05)
--- NOTE | 2022-10-04 14:25 | RAD REPORT ---
EXAM DESCRIPTION: CTAbdomen Pelvis W Contrast - 10/04/2022 2:07 pm CLINICAL HISTORY: Abdominal pain. ABD PAIN COMPARISON: Abdomen Pelvis W Contrast dated 07/13/2020 TECHNIQUE: Biphasic CT imaging of the abdomen and pelvis was performed with 100 ml non-ionic IV cont rast. All CT scans are performed using dose optimization technique as appropriate and may include automated exposure control or mA/KV adjustment according to patient size. FINDINGS: The lung bases are clear. The liver demonstrates mild fatty liver. Spleen, pancreas, adrenal glands and kidneys are within norm al limits. Gallbladder distention. No bowel obstruction or free air. There is inflammation as well as wall thickening of the small bowel in the left lower quadrant of the abdomen. Small air bubbles are present in the fat in this region. There is a 4 cm abscess present interloop location left lower quadrant anteriorly. Sigmoid diverticul osis is seen in the region. The appendix is normal. No evidence of significant lymphadenopathy. No suspicious bony findings. IMPRESSION: In the left lower quadrant of the abdomen, there is moderate inflammation and thickening of small bowel loops with mild bowel distention and inflamed fat. There is a interloop abscess prese nt measuring 4-5 cm. This may be related to inflammatory bowel disease or infection.
--- NOTE | 2022-10-04 14:49 | ER ---
Nurse's Notes [facility] Name: Stefan Man Age: 51 yrs Sex: Male : 1970 Arrival Date: 10/04/2022 Time: 12:55 Bed 20 Private MD: Diagnosis: Sepsis, unspecified organism;Intra-abdominal abscess;Lower abdominal pain, unspecified Presentation: 10/04 13:03 Chief complaint: Patient states: generalized abdominal pain onset last night. Pt states cm10 that he thinks that he is having a diverticulitis flair up. Pt tender to touch LLQ. Coronavirus screen: Vaccine status: Patient reports receiving the 2nd dose of the covid vaccine. Client denies travel out of the [place] in the last 14 days. Ebola Screen: Patient denies travel to an Ebola-affected area in the 21 days before illness onset. No symptoms or risks identified at this time. Initial Sepsis Screen: Does the patient meet any 2 criteria? RR > 20 per min. HR > 90 bpm. Yes Does the patient have a suspected source of infection? Yes: Acute abdominal pain If YES to both, name of provider notified: Ricardo Berman DO. Risk Assessment: Do you want to hurt yourself or someone else? Patient reports no desire to harm self or others. Onset of symptoms was October 04, 2022. 13:03 Method Of Arrival: Wheelchair cm10 13:03 Acuity: NISSA 2 cm10 Historical: - Allergies: 13:05 No Known Allergies; cm10 - PMHx: 13:05 Diverticulitis; cm10 - Immunization history:: Adult Immunizations unknown. - Social history:: Smoking status: Patient denies any tobacco usage or history of. Screenin:38 [facility] ED Fall Risk Assessment (Adult) History of falling in the last 3 months, kc6 including since admission No falls in past 3 months (0 pts) Confusion or Disorientation No (0 pts) Intoxicated or Sedated No (0 pts) Impaired Gait No (0 pts) Mobility Assist Device Used No (0 pt) Altered Elimination No (0 pt) Score/Fall Risk Level 0 - 2 = Low Risk. Abuse screen: Denies threats or abuse. Denies injuries from another. Nutritional screening: No deficits noted. Tuberculosis screening: No symptoms or risk factors identified. Assessment: 13:30 General: Appears in no apparent distress. uncomfortable, ill, Behavior is cooperative, kc6 appropriate for age. Pain: Complains of pain in left lower quadrant Pain does not radiate. Pain currently is 10 out of 10 on a pain scale. Quality of pain is described as sharp, stabbing, Pain began 1 day ago. Is intermittent, Alleviated by medications, Aggravated by eating, drinking, Noted to be crying, grimacing, guarding, moaning, resistant to movement, Also complains of no other associated symptoms. Neuro: Level of Consciousness is awake, alert, obeys commands, Oriented to person, place, time, situation, Appropriate for age. Cardiovascular: Heart tones S1 S2 present Capillary refill < 3 seconds Rhythm is sinus tachycardia. Respiratory: Airway is patent Trachea midline Respiratory effort is even, unlabored, Respiratory pattern is regular, symmetrical. GI: Abdomen is round non-distended, obese, Bowel sounds present X 4 quads. Abd is soft X 4 quads Abdomen is tender to palpation in left lower quadrant. : No signs and/or symptoms were reported regarding the genitourinary system. EENT: No signs and/or symptoms were reported regarding the EENT system. Derm: No signs and/or symptoms reported regarding the dermatologic system. Skin is intact, is healthy with good turgor, Skin is pink, warm \T\ dry. Musculoskeletal: No signs and/or symptoms reported regarding the musculoskeletal system. Circulation, motion, and sensation intact. Capillary refill < 3 seconds, Range of motion: intact in all extremities. 14:30 Reassessment: Patient appears in no apparent distress at this time. No changes from kc6 previously documented assessment. Patient and/or family updated on plan of care and expected duration. Pain level reassessed. Patient is alert, oriented x 3, equal unlabored respirations, skin warm/dry/pink. Vital Signs: 13:03 BP 135 / 97; Pulse 131; Resp 22; Temp 99.4; Pulse Ox 97% ; Weight 117.93 kg; Height 6 cm10 ft. 0 in. ; Pain 10/10; 13:38 BP 154 / 97; Pulse 120; Resp 24 S; Pulse Ox 95% on R/A; Pain 10/10; kc6 15:08 BP 116 / 68; Pulse 114; Resp 20 S; Pulse Ox 93% on R/A; kc6 15:26 Temp 99(O); kc6 13:03 Body Mass Index 35.26 (117.93 kg, 182.88 cm) cm10 13:03 Pain Scale: Adult cm10 13:38 Pain Scale: Adult kc6 ED Course: 12:56 Patient arrived in ED. rg4 12:57 Ricardo Berman DO is Attending Physician. ms3 13:05 Triage completed. cm10 13:05 Arm band placed on Patient placed in an exam room, on a stretcher. cm10 13:14 Lluvia Watson, EMILY is Primary Nurse. kc6 13:37 Inserted saline lock: 18 gauge in right antecubital area, using aseptic technique. kc6 ,using aseptic technique. by EMILY Lew Blood collected. Inserted saline lock: 20 gauge in left antecubital area, using aseptic technique. ,using aseptic technique. by Tika Oviedo RN Blood collected. 13:38 Patient has correct armband on for positive identification. Bed in low position. Call kc6 light in reach. Side rails up X2. Adult w/ patient. Client placed on continuous cardiac and pulse oximetry monitoring. NIBP monitoring applied. air sampling and monitoring on. 14:09 CT Abd/Pelvis - IV Contrast Only In Process Unspecified. EDMS 14:49 Seven Cole MD is Hospitalizing Provider. ms3 17:23 No provider procedures requiring assistance completed. Patient admitted, IV remains in kc6 place. Administered Medications: 13:21 Drug: NS 0.9% IV 1000 ml Route: IV; Rate: 1000 ml; Site: right antecubital; kc6 15:25 Follow up: Response: No adverse reaction; IV Status: Completed infusion; IV Intake: kc6 1000ml 13:21 Drug: morphine IVP or IV 4 mg Route: IVP; Infused Over: 4 mins; Site: right antecubital;kc6 13:57 Follow up: Response: No adverse reaction; Pain is unchanged, physician notified; RASS: kc6 Alert and Calm (0) 13:22 Drug: Ondansetron IVP 4 mg Route: IVP; Site: right antecubital; kc6 13:57 Follow up: Response: No adverse reaction kc6 13:31 Drug: Piperacillin-Tazobactam IVPB 3.375 grams Route: IVPB; Infused Over: 60 mins; kc6 Site: right antecubital; 15:09 Follow up: Response: No adverse reaction; IV Status: Completed infusion; IV Intake: kc6 100ml 13:57 Drug: fentaNYL (PF) IVP 50 mcg Route: IVP; Site: right antecubital; kc6 15:09 Follow up: Response: No adverse reaction; Pain is decreased; RASS: Alert and Calm (0) kc6 15:46 Drug: HYDROmorphone IVP 1 mg Route: IVP; Site: right antecubital; kc6 Medication: 17:23 VIS not applicable for this client. kc6 Intake: 15:09 IV: 100ml; Total: 100ml. kc6 15:25 IV: 1000ml; Total: 1100ml. 6 Outcome: 14:48 Discharge ordered by MD. ms3 14:49 Decision to Hospitalize by Provider. ms3 17:23 Admitted to Med/surg accompanied by tech, via stretcher, with chart, Report called to yrn Tolbert RN 17:23 Condition: improved 17:23 Instructed on the need for admit. 17:24 Patient left the ED. [facility] Signatures: Dispatcher [employer] EDTalya Isbell rg4 Ricardo Berman DO DO ms3 Lluvia Watson RN RN kc6 Louann Zavala RN RN cm10
--- NOTE | 2022-10-04 14:50 | EDPHYS ---
Physician Documentation [facility] Name: Stefan Man Age: 51 yrs Sex: Male : 1970 Arrival Date: 10/04/2022 Time: 12:55 Bed 20 Private MD: ED Physician Ricardo Berman HPI: 10/04 13:47 This 51 yrs old Male presents to ER via Wheelchair with complaints of ms3 Abdominal Pain. 13:47 51-year-old male with past medical history of diverticulitis, urinary tract infections ms3 presents for left lower quadrant abdominal pain that began last night. Patient endorses chills, nausea, diarrhea. Patient denies vomiting. Patient states the pain is a 10/10 without radiation. Patient denies alleviating or inciting factors. Patient states his pain is worse than his prior episodes of diverticulitis. Historical: - Allergies: 13:05 No Known Allergies; cm10 - PMHx: 13:05 Diverticulitis; cm10 - Immunization history:: Adult Immunizations unknown. - Social history:: Smoking status: Patient denies any tobacco usage or history of. ROS: 13:47 Constitutional: Negative for fever, and chills. Neck: Negative for injury, pain, and ms3 swelling, Cardiovascular: Negative for chest pain, and palpitations. Respiratory: Negative for shortness of breath, cough, wheezing, and pleuritic chest pain. 13:47 MS/Extremity: Negative for injury and deformity, Skin: Negative for injury, rash, and discoloration. 13:47 Abdomen/GI: Positive for abdominal pain, nausea. 13:47 All other systems are negative. Exam: 13:47 Constitutional: This is a well developed, well nourished patient who is awake, alert, ms3 and in no acute distress. Head/Face: Normocephalic, atraumatic. Neck: Trachea midline, no cervical lymphadenopathy. Supple, full range of motion without nuchal rigidity, or vertebral point tenderness. No Meningismus. Chest/axilla: Normal chest wall appearance and motion. Nontender with no deformity. Cardiovascular: Regular rate and rhythm with a normal S1 and S2. No gallops, murmurs, or rubs. Normal PMI, no JVD. No pulse deficits. Respiratory: Lungs have equal breath sounds bilaterally, clear to auscultation and percussion. No rales, rhonchi or wheezes noted. No increased work of breathing, no retractions or nasal flaring. 13:47 Abdomen/GI: Inspection: abdomen appears normal, Bowel sounds: normal, Palpation: severe abdominal tenderness, in all quadrants, Worse in the left upper quadrant and left lower quadrant, rebound tenderness, is elicited in all quadrants. 14:07 ECG was reviewed by the Attending Physician. ms3 Vital Signs: 13:03 BP 135 / 97; Pulse 131; Resp 22; Temp 99.4; Pulse Ox 97% ; Weight 117.93 kg; Height 6 cm10 ft. 0 in. ; Pain 10/10; 13:38 BP 154 / 97; Pulse 120; Resp 24 S; Pulse Ox 95% on R/A; Pain 10/10; kc6 15:08 BP 116 / 68; Pulse 114; Resp 20 S; Pulse Ox 93% on R/A; kc6 15:26 Temp 99(O); kc6 13:03 Body Mass Index 35.26 (117.93 kg, 182.88 cm) cm10 13:03 Pain Scale: Adult cm10 13:38 Pain Scale: Adult kc6 MDM: 13:04 Patient medically screened. ms3 13:47 Differential diagnosis: bowel obstruction, diverticulitis, Mesenteric ischemia or ms3 infarction, non-specific abd pain. 14:50 Data reviewed: vital signs, nurses notes, lab test result(s), EKG, radiologic studies, ms3 CT scan, and as a result, I will admit patient. Consideration of Admission/Observation Patient was admitted/placed on observation. Management of patient was discussed with the following: Hospitalist: Dr Cole. I considered the following discharge prescriptions or medication management in the emergency department Medications were administered in the Emergency Department. See MAR. Independent interpretation of the following test(s) in the Emergency Department CT Scan: My interpretation is CT images reviewed by me do not reveal intra-abdominal free air. Historians other than the Patient: Spouse/Significant Other: Patient's . Counseling: I had a detailed discussion with the patient and/or guardian regarding the historical points, exam findings, and any diagnostic results supporting the discharge/admit diagnosis, lab results, radiology results, the need for further work-up and treatment in the hospital. Response to treatment: There is no appreciated change of the patient's symptoms at this time, and as a result, I will admit patient. 10/04 13:05 Order name: Blood Culture Adult (2) ms3 10/04 13:05 Order name: CBC with Diff; Complete Time: 13:54 ms3 10/04 13:05 Order name: CMP; Complete Time: 13:54 ms3 10/04 13:05 Order name: Lactate w/ 2H reflex if indic.; Complete Time: 13:54 ms3 10/04 13:05 Order name: Protime (+inr); Complete Time: 13:54 ms3 10/04 13:05 Order name: Ptt, Activated; Complete Time: 13:54 ms3 10/04 13:05 Order name: Urinalysis w/ reflexes ms3 10/04 16:06 Order name: Magnesium EDMS 10/04 16:06 Order name: Phosphorus EDMS 10/04 16:06 Order name: Urinalysis w/ reflexes EDMS 10/04 16:06 Order name: Basic Metabolic Panel EDMS 10/04 16:06 Order name: Basic Metabolic Panel EDMS 10/04 16:06 Order name: CBC with Automated Diff EDMS 10/04 16:06 Order name: CBC with Automated Diff EDMS 10/04 16:06 Order name: Lipid Profile EDMS 10/04 16:06 Order name: Lipid Profile EDMS 10/04 16:06 Order name: Protime (+INR) EDMS 10/04 16:06 Order name: Protime (+INR) EDMS 10/04 13:07 Order name: CT Abd/Pelvis - IV Contrast Only; Complete Time: 14:27 ms3 10/04 13:05 Order name: EKG; Complete Time: 13:06 ms3 10/04 16:06 Order name: CONS Physician Consult EDMS 10/04 16:06 Order name: NPO EDMS 10/04 13:05 Order name: Accucheck; Complete Time: 13:22 ms3 10/04 13:05 Order name: Cardiac monitoring; Complete Time: 13:22 ms3 10/04 13:05 Order name: EKG - Nurse/Tech; Complete Time: 13:22 ms3 10/04 13:05 Order name: IV Saline Lock - Large Bore; Complete Time: 13:22 ms3 10/04 13:05 Order name: Labs collected and sent; Complete Time: 13:22 ms3 10/04 13:05 Order name: O2 Per Protocol; Complete Time: 13:22 ms3 10/04 13:05 Order name: O2 Sat Monitoring; Complete Time: 13:22 ms3 10/04 13:05 Order name: Vital Signs; Complete Time: 13:22 ms3 10/04 14:41 Order name: NPO; Complete Time: 14:46 ms3 EC:07 Rate is 135 beats/min. Rhythm is regular. QRS [place] is Normal. AR interval is normal. ms3 QRS interval is normal. QT interval is normal. Clinical impression: Sinus tachycardia. Interpreted by me. Reviewed by me. Administered Medications: 13:21 Drug: NS 0.9% IV 1000 ml Route: IV; Rate: 1000 ml; Site: right antecubital; kc6 15:25 Follow up: Response: No adverse reaction; IV Status: Completed infusion; IV Intake: kc6 1000ml 13:21 Drug: morphine IVP or IV 4 mg Route: IVP; Infused Over: 4 mins; Site: right antecubital;kc6 13:57 Follow up: Response: No adverse reaction; Pain is unchanged, physician notified; RASS: kc6 Alert and Calm (0) 13:22 Drug: Ondansetron IVP 4 mg Route: IVP; Site: right antecubital; kc6 13:57 Follow up: Response: No adverse reaction kc6 13:31 Drug: Piperacillin-Tazobactam IVPB 3.375 grams Route: IVPB; Infused Over: 60 mins; kc6 Site: right antecubital; 15:09 Follow up: Response: No adverse reaction; IV Status: Completed infusion; IV Intake: kc6 100ml 13:57 Drug: fentaNYL (PF) IVP 50 mcg Route: IVP; Site: right antecubital; kc6 15:09 Follow up: Response: No adverse reaction; Pain is decreased; RASS: Alert and Calm (0) kc6 15:46 Drug: HYDROmorphone IVP 1 mg Route: IVP; Site: right antecubital; kc6 Disposition Summary: 10/04/22 14:49 Hospitalization Ordered Hospitalization Status: Inpatient Admission ms3 Provider: Seven Cole ms3 Location: Telemetry/MedSurg (Inpatient)(10/04/22 14:49) ms3 Condition: Stable(10/04/22 14:49) ms3 Problem: new ms3 Symptoms: are unchanged ms3 Bed/Room Type: Standard ms3 Room Assignment: 205(10/04/22 16:12) ja1 Diagnosis - Sepsis, unspecified organism(10/04/22 14:49) ms3 - Intra-abdominal abscess ms3 - Lower abdominal pain, unspecified(10/04/22 14:49) ms3 Forms: - Medication Reconciliation Form ms3 - SBAR form ms3 - Leadership Thank You Letter ms3 Critical care time excluding procedures: 14:50 Critical care time: Bedside Care: 20 minutes, Consultation: 10 minutes, Family ms3 Intervention: 10 minutes. Total time: 40 minutes Signatures: Dispatcher [employer] EDMS Anthony Argueta, RN RN ja1 Ricardo Berman, DO ms3 Lluvia Watson, RN RN kc6 Louann Zavala RN RN cm10 Corrections: (The following items were deleted from the chart) 14:48 14:48 Home ms3 ms3 14:48 14:48 Stable ms3 ms3 14:48 14:48 Sepsis, unspecified organism ms3 ms3 14:48 14:48 Intra-abdominal abscess ms3 ms3 14:48 14:48 Lower abdominal pain, unspecified ms3 ms3 16:12 14:49 ms3 ja1
[2022-10-04] MEDS ORDERED: HYDROMORPHONE HCL 1 MG/ML INJ ONE (15:53)
--- NOTE | 2022-10-04 16:07 | P.HP ---
Certification for Inpatient Patient admitted to: Inpatient With expected LOS: >2 Midnights Patient will require the following post-hospital care: None Practitioner: I am a practitioner with admitting privileges, knowledge of patient current condition, hospital course, and medical plan of care. Services: Services provided to patient in accordance with Admission requirements found in Title 42 Section 412.3 of the Code of Federal Regulations Patient History Date of Service: 10/04/22 Reason for admission: Abdominal pain. History of Present Illness: Patient is a 51-year-old male with a past medical history significant for diverticulitis, obesity who presents with complaint of lower quadrants pain onset yesterday. Patient rated pain as 10/10 in severity and described pain as sharp\stabbing pain in quality. Patient reported associated signs and symptoms of nausea, fever, diarrhea, chills, poor appetite and generalized malaise. Patient reported that he has had 3 episodes of diarrhea today. Patient denies any other signs and symptoms. Symptoms are aggravated or relieved by nothing. Patient decided to present to the hospital due to worsening symptoms. Allergies No Known Allergies Allergy (Verified 03/27/12 07:36) Home Medications: Ciprofloxacin HCl [Cipro 500 MG Tablet] 500 mg PO BID 12 Days #24 tab 07/16/20 Ondansetron [Zofran] 4 mg PO Q6H PRN 3 Days #10 tab 07/16/20 metroNIDAZOLE [Flagyl] 500 mg PO Q8H 12 Days #36 tablet 07/16/20 - Past Medical/Surgical History Diabetic: No -: Diverticulitis -: Obesity -: Left shoulder surgery -: Vasectomy Psychosocial/ Personal History: lives w/ girlfriend - Social History Smoking Status: Former smoker Alcohol use: Yes CD- Drugs: No Caffeine use: No Place of Residence: Home Review of Systems General: Fever, Chills, Other (Malaise, poor appetite ) Eyes: Unremarkable ENT: Unremarkable Respiratory: Unremarkable Cardiovascular: Unremarkable Gastrointestinal: Nausea, Abdominal Pain, Diarrhea Genitourinary: Unremarkable Musculoskeletal: Unremarkable Integumentary: Unremarkable Neurological: Unremarkable Lymphatics: Unremarkable Physical Examination - Physical Exam General: Alert, Oriented x3, Cooperative, Mild distress HEENT: Atraumatic, PERRLA, Mucous membr. moist/pink, EOMI, Sclerae nonicteric Neck: Supple, 2+ carotid pulse no bruit, No LAD, Without JVD or thyroid abnormality Respiratory: Clear to auscultation bilaterally, Normal air movement Cardiovascular: No edema, Regular rate/rhythm, Normal S1 S2 Capillary refill: <2 Seconds Gastrointestinal: Normal bowel sounds, Tenderness Musculoskeletal: No clubbing, No swelling, No tenderness Integumentary: No rashes, No significant lesion Neurological: Normal speech, Normal tone, Normal affect Lymphatics: No axilla or inguinal lymphadenopathy - Studies Laboratory Data (last 24 hrs) 10/04/22 10/04/22 10/04/22 13:12 13:12 13:12 WBC 19.80 H Hgb 17.1 Hct 50.0 H Plt Count 159 PT 16.5 H INR 1.50 APTT 33.2 Sodium 132 L Potassium 3.8 BUN 9 Creatinine 1.39 H Glucose 169 H Total Bilirubin 1.7 H AST 17 ALT 47 Alkaline Phosphatase 69 Assessment and Plan - Plan --Intra-abdominal abscess. Patient has a history of diverticulitis. CT imaging indicates In the left lower quadrant of the abdomen, there is moderate inflammation and thickening of small bowel loops with mild bowel distention and inflamed fat. There is a interloop abscess present measuring 4-5 cm. This may be related to inflammatory bowel disease or infection. We will keep patient NPO. Patient started on antibiotics and IV hydration. Surgeon consulted--recommends n.p.o. and IV antibiotics at this time. Infectious disease consulted for antibiotic management. We will await further recommendation from consultants. --Acute pain. We will manage pain with current pain medication regimen. --CKD 2. Mild depreciation in renal functions. GFR 2 years ago was 70 now is 62. Continue IV hydration. We will continue to monitor renal functions. --Diarrhea. Patient reports 3 episodes of diarrhea today. Stool studies pending to rule out any infectious process. Continue enteric precautions. -- Class II obesity. Likely secondary to excess calories intake. Patient counseled on weight reduction, diet and excise therapy. --Leukocytosis. Likely secondary to intra-abdominal abscess. Blood cultures pending. Continue antibiotics. Infectious disease MD on board. Will await further recommendations. --DVT prophylaxis with SCDs. Discharge Plan: Home Plan to discharge in: Greater than 2 days - Advance Directives Does patient have a Living Will: No Does patient have a Durable POA for Healthcare: No - Code Status/Comfort Care Code Status Assessed: Yes Physician Review: Patient Assessed, Agree with Above Assessment and Plan Critical Care: No
[2022-10-04] MEDS: HYDROMORPHONE HCL 1 MG/ML INJ IV PRN ×2 (17:52→20:45)
[2022-10-04] MEDS: NA CHLORIDE 0.9% 1,000 ML IV SCH (17:53)
[2022-10-04] MEDS: PIPER TAZO 3.375 GM in NA CHLORIDE 0.9% 100 ML IV SCH (17:53)
[2022-10-04] MEDS: ACETAMINOPHEN 650MG/RECT SUPP PR PRN (17:54)
[2022-10-04] MEDS ORDERED: HOME MED [ALBUTEROL INHALER 60 PUFF/8 GM] IH PRN (18:50)
[2022-10-04 20:14] LABS: Magnesium 1.7 mg/dL (1.6-2.4); Phosphorus 1.8 mg/dL (2.5-4.9)
[2022-10-04 20:21] LABS: Urine Bacteria None Seen /HPF (<20); Urine Bilirubin NEGATIVE (Negative); Urine Blood Trace (Negative); Urine Clarity Clear (Clear); Urine Color Yellow (Yellow); Urine Glucose 2+ (Negative); Urine Mucus Slight /HPF (None Seen); Urine Protein 1+ (Negative); Urine RBC <5 /HPF (None Seen); Urine Urobilinogen Normal (Normal)
[2022-10-04 20:24] LABS: Specific Gravity > 1.030 (1.005-1.030)
[2022-10-05] MEDS: PIPER TAZO 3.375 GM in NA CHLORIDE 0.9% 100 ML IV SCH ×3 (00:14→16:15)
[2022-10-05] MEDS: NA CHLORIDE 0.9% 1,000 ML IV SCH ×3 (00:15→13:47)
[2022-10-05] MEDS: HYDROMORPHONE HCL 1 MG/ML INJ IV PRN ×7 (00:21→21:58)
[2022-10-05 03:39] LABS: Protime INR 1.65
[2022-10-05 03:40] LABS: Absolute Lymphocytes (CBC) 0.6 K/uL (0.7-4.9); Hematocrit 46.8 % (39.6-49.0); MCV 95.1 fL (80-100); MPV 10.9 fL (7.6-11.3); Platelets 162 thou/uL (152-406); RBC Red Blood Cell Count 4.92 M/uL (4.33-5.43)
[2022-10-05 04:01] LABS: Albumin 2.8 g/dL (3.4-5.0); Bilirubin Direct 1.1 mg/dL (0-0.2); Bilirubin Total 2.1 mg/dL (0.2-1.0); Phosphorus 2.9 mg/dL (2.5-4.9); Protein, Total 6.9 g/dL (6.4-8.2)
[2022-10-05 04:57] LABS: Blood Morphology Comment NOT SEEN (NOT SEEN); Platelet Estimate ADEQ
[2022-10-05] MEDS ORDERED: MAGNESIUM SULFATE 1 gm IVPB 1 GM/100 ML BAG IV ONE (07:08)
--- NOTE | 2022-10-05 07:22 | P.PN ---
Date of Service: 10/05/22 Subjective: Feeling a little better Pain is manageable with current pain medication Tachycardic with HR 110-130s Febrile yesterday ROS: 10 point ROS as noted above, otherwise negative Physical Exam: GEN: Alert, oriented, uncomfortable appearing HEENT: Normal conjunctiva, sclera anicteric CV: Tachycardic, no edema Pulm: Nonlabored respirations on room air, shallow respirations ABD: mild-mod distention, diffuse tenderness Neuro: Normal speech, normal affect vitals reviewed Problem List: Intra-abdominal abscess, ~4-5 cm CKD 2 Diarrhea Class II obesity h/o diverticulitis, >5-6 episodes Intra-abdominal abscess, ~4-5 cm ~4th diverticulitis episodes since 2021 Previous EGD/scope was okay per patient CT(10/04): mod inflammation and thickening of small bowel loops with mild bowel distention and inflamed fat in LLQ. interloop abscess present measuring 4-5 cm. blood cx: pending General surgery and ID Consulted continue IVF while NPO Continue IV zosyn (10/04-) last fever: 101.3 (10/04), +Leukocytosis improving PRN pain medication CKD 2 GFR 2 years ago was 70 now is 62. Continue IVF monitor renal function Diarrhea Patient reports 3 episodes of diarrhea yesterday. Stool studies pending Continue enteric precautions. VTE: SCD Code: Full Dispo: Home, ~3 days
--- NOTE | 2022-10-05 09:34 | P.CNS ---
Date of Consult: 10/05/22 Reason for Consult: intra-abdominal abscess Chief Complaint: Abdominal pain. History of Present Illness: Patient is a 51-year-old male with a past medical history of diverticulitis who presented to the emergency department with complaints of abdominal pain, nausea, fever, malaise. CT abdomen obtained which revealed a interloop abscess measuring 4-5 cm. Patient was started on Zosyn. General surgery and infectious disease was consulted. Allergies No Known Allergies Allergy (Verified 03/27/12 07:36) Home medications list reviewed: Yes Home Medications: Ciprofloxacin HCl [Cipro 500 MG Tablet] 500 mg PO BID 12 Days #24 tab 07/16/20 Ondansetron [Zofran] 4 mg PO Q6H PRN 3 Days #10 tab 07/16/20 metroNIDAZOLE [Flagyl] 500 mg PO Q8H 12 Days #36 tablet 07/16/20 Albuterol Inhaler [Ventolin Inhaler*] 1 puff IH DAILY PRN 10/04/22 - Past Medical/Surgical History Diabetic: No -: Diverticulitis -: Obesity -: Left shoulder surgery -: Vasectomy Psychosocial/ Personal History: lives w/ girlfriend - Social History Alcohol use: Yes CD- Drugs: No Caffeine use: No Place of Residence: Home Review of Systems General: Fever Gastrointestinal: Abdominal Pain (severe) Physical Examination Temp Pulse Resp BP Pulse Ox 97.8 F 68 20 132/62 96 10/05/22 04:00 10/05/22 04:00 10/05/22 08:21 10/05/22 04:00 10/05/22 08:21 General: Alert, Oriented x3, Mild distress HEENT: Atraumatic, Normocephalic Neck: Supple, JVD not distended Respiratory: Normal air movement Cardiovascular: No edema, Normal pulses, Other (tachycardic) Gastrointestinal: Normal bowel sounds, Distended, Tenderness Musculoskeletal: No clubbing Integumentary: No rashes, No breakdown Neurological: Normal speech Laboratory Data (last 24 hrs) 10/04/22 10/04/22 10/04/22 13:12 13:12 13:12 WBC 19.80 H Hgb 17.1 Hct 50.0 H Plt Count 159 PT 16.5 H INR 1.50 APTT 33.2 Sodium 132 L Potassium 3.8 BUN 9 Creatinine 1.39 H Glucose 169 H Total Bilirubin 1.7 H AST 17 ALT 47 Alkaline Phosphatase 69 Imagings Data: Reviewed Conclusions/Impression: Problem List Intra-abdominal abscess CKD III Obesity Diarrhea History of diverticulitis Intra-abdominal abscess - CT abdomen pelvis w contrast 10/04: " In the left lower quadrant of the abdomen, there is moderate inflammation and thickening of small bowel loops with mild bowel distention and inflamed fat. There is a interloop abscess present measuring 4-5 cm. This may be related to inflammatory bowel disease or infection." - Blood cultures 10/04: no growth 24 hours - On Zosyn (10/04-) - general surgery consulted Recommendations - Continue Zosyn for now. add flagyl. - monitor WBC and fever trends - pain management per primary team Case discussed with Alfred Mckeon
--- NOTE | 2022-10-05 13:06 | EKG ---
Test Date: 2022-10-04 Test Time: 13:51:26 [place] Porter: SANGEETA MEASUREMENT RESULTS: Intervals: Rate: 135 [place]: 144 QRSD: 90 QT: 300 QTc: 450 [place]: P: 64 [place]: 144 QRS: 60 T: 27 INTERPRETIVE STATEMENTS: Sinus tachycardia Nonspecific ST and T wave abnormality Abnormal ECG No previous ECG available for comparison Electronically Signed On 10-05-22 13:04:06 CDT by Pierre Craven
--- NOTE | 2022-10-05 17:43 | CON ---
Date of Consultation: 10/05/2022 Diagnosis: Intra-abdominal abscess. History Of Present Illness: This is the case of a 51-year-old patient, admitted to the hospital in t he last few hours with abdominal pain that started Monday, about 48 hours ago. Monday, he remember h lopez was eating some popcorn at the movie. Apparently, he has history of diverticular disease. He says he has 3 attacks already, but he has not seen a colorectal surgeon. He has seen a GI doctor, who di d a colonoscopy on him, although I do not have the results with me. He says that they found divertic ulum. On Monday when he started to feel sick, he took Cipro and Flagyl. He stated that was prescrib ed to him before in case he develops this attack again and he took it for 2 days and is still having abdominal pain, so he came to the ER where they found the problem. He denies any vomiting, but has s till some nausea and diarrhea and no fever. He denies any dysuria, hematuria, hematochezia, or melen a. Denies any recent traveling out of the country. Denies any family member sick at home. Past Medical History: Diverticulitis. Social History: He does not smoke. He does not drink alcohol. Family History: Noncontributory. Allergies: NONE. Review of Systems: See HPI, nausea, diarrhea, abdominal pain. Ten points otherwise unremarkable. Physical Examination: General: The patient is awake, alert. HEENT: Pupils are equal and reactive. Anicteric. Neck: Supple. Chest: Clear. Heart: S1, S2. Abdomen: Softly distended. Generalized tenderness. No rebound. Compared to yesterday when he came to the ER before coming to the ER, he says he has pain worse than now. Extremities: Good capillary refill. Laboratory Data: WBC count yesterday was 19, now is 12. Platelets of 162. INR is 1.65. Sodium is 137 and creatinine is 1.64. CAT scan of the abdomen and pelvis interpreted by Dr. Drummond as, in the le ft lower quadrant of the abdomen, there is moderate inflammation and thickening of the small bowel lo ops with mid bowel distention and inflamed fat. There is an interloop abscess present measuring abou t 4-5 cm. This may be related to inflammatory bowel disease or infection. Assessment: This is a 51-year-old patient with history of sigmoid diverticulitis, now comes to us wi th inflammation around that area and small bowel at this time involved with an interloop abscess. Th e possibility of perforation is discussed with the patient. Today, he is responding, he f eels a little bit better. Even though we have a history of diverticulitis and he ate some popcorn at the same time, the etiology is not completely clear of his abscess. So, we are going to keep him on bowel rest, IV antibiotics. He has the choice of laparotomy, possible bowel resection, and possible ostomy. He does not want to use that at this moment. The benefits, alternatives, and risks of that surgery anyway were fully explained, which include, but not limited to infection, bleeding, damage t o adjacent structures, anesthesia complication, hernias, intra-abdominal adhesions, CT, and even deat h. He also understands this may not relieve any symptoms and he might need more than one surgical in tervention. Even if he recovered from this one and he does not deteriorate or clinically do worse in the next 48 hours, he is still to have an evaluation for elective surgery. As per patient, this is the fourth time he has this kind of event. He understands that. He also understands the importance of bowel rest. ARA/ASHUTOSH Voice ID: [id number] Report ID: [id number]
[2022-10-05] MEDS: ACETAMINOPHEN 650MG/RECT SUPP PR PRN (22:03)
[2022-10-06] MEDS: PIPER TAZO 3.375 GM in NA CHLORIDE 0.9% 100 ML IV SCH ×3 (00:46→16:42)
[2022-10-06] MEDS: NA CHLORIDE 0.9% 1,000 ML IV SCH ×4 (00:47→20:03)
[2022-10-06 03:21] LABS: Absolute Lymphocytes (CBC) 0.5 K/uL (0.7-4.9); Hematocrit 41.8 % (39.6-49.0); Lymphocytes % 3.9 % (15.3-44.8); MCV 94.8 fL (80-100); MPV 11.5 fL (7.6-11.3); Platelets 162 thou/uL (152-406); RBC Red Blood Cell Count 4.41 M/uL (4.33-5.43)
[2022-10-06 03:41] LABS: Albumin 2.2 g/dL (3.4-5.0); Magnesium 2.3 mg/dL (1.6-2.4); Potassium 3.7 mEq/L (3.5-5.1); Protein, Total 6.3 g/dL (6.4-8.2)
[2022-10-06] MEDS: HYDROMORPHONE HCL 1 MG/ML INJ IV PRN ×6 (03:45→22:12)
[2022-10-06] MEDS ORDERED: KCL 20 MEQ/100 mL IVPB 20 MEQ/100 ML BAG IV SCH (05:00)
--- NOTE | 2022-10-06 06:57 | P.PN ---
Date of Service: 10/06/22 Subjective: Feeling better today Needing less frequent pain medication Abdominal pain improving, +soft BM +persistent hiccups started this morning afebrile today ROS: 10 point ROS as noted above, otherwise negative Physical Exam: GEN: Alert, oriented, uncomfortable appearing HEENT: Normal conjunctiva, sclera anicteric CV: sinus tachycardia 120, no edema Pulm: Nonlabored respirations on room air, shallow respirations ABD: mild-mod distention, diffuse tenderness Neuro: Normal speech, normal affect vitals reviewed Problem List: Intra-abdominal abscess, ~4-5 cm CKD 2 Diarrhea Class II obesity h/o diverticulitis, >5-6 episodes Intra-abdominal abscess, ~4-5 cm ~4th diverticulitis episodes since 2021 Previous EGD/scope was okay per patient CT(10/04): mod inflammation and thickening of small bowel loops with mild bowel distention and inflamed fat in LLQ. interloop abscess present measuring 4-5 cm. KUB (10/06): ordered to r/o free air / perforation CXR (10/06): ordered d/t new hiccups, eval atelectasis / fluid blood cx: pending General surgery and ID Consulted continue IVF while NPO Continue IV zosyn (10/04-) last fever: 101.3 (10/04), +Leukocytosis improving PRN pain medication Encourage incentive spirometry 10/06 - reports persistent hiccups that started this morning Started protonix 10/06 CKD 2 GFR 2 years ago was 70 now is 62. Continue IVF monitor renal function Diarrhea Patient reports 3 episodes of diarrhea yesterday. Stool studies pending Continue enteric precautions. Soft BM 10/06 VTE: SCD Code: Full Dispo: Home, ~ 2-3 days
--- NOTE | 2022-10-06 09:05 | P.PN ---
Date of Service: 10/06/22 Chief Complaint: Abdominal pain. Subjective: Patient seen and examined at bedside. + severe Abdominal pain + Nausea Physical Examination Temp Pulse Resp BP Pulse Ox 98.7 F 113 H 18 146/79 H 95 10/06/22 08:00 10/06/22 08:00 10/06/22 08:00 10/06/22 08:00 10/06/22 08:00 General: Alert, Oriented x3, Mild distress HEENT: Atraumatic, Normocephalic Neck: Supple, JVD not distended Respiratory: Normal air movement. clear to auscultation. Cardiovascular: No edema, Normal pulses, tachycardic Gastrointestinal: Normal bowel sounds. Abdominal tenderness Musculoskeletal: No clubbing Integumentary: No rashes, No breakdown Neurological: Normal speech Laboratory Data - Reviewed Microbiology Data - Reviewed Imagings Data: - Reviewed Medications list: reviewed Assessment and Plan Problem List Intra-abdominal abscess CKD III Obesity Diarrhea History of diverticulitis Intra-abdominal abscess - CT abdomen pelvis w contrast 10/04: " In the left lower quadrant of the abdomen, there is moderate inflammation and thickening of small bowel loops with mild bowel distention and inflamed fat. There is a interloop abscess present measuring 4-5 cm. This may be related to inflammatory bowel disease or infection." - Blood cultures 10/04: no growth 24 hours - On Zosyn (10/04-) -Stool culture pending - leukocytosis improving. - general surgery consulted who discussed treatment options with the patient. Patient wishes to hold off on surgical intervention at this time. We will continue with medical management for now. Recommendations - Continue Zosyn for now. - Follow-up with stool culture results - monitor WBC and fever trends - pain management per primary team Case discussed with Alfred Mckeon
[2022-10-06] MEDS ORDERED: NA CHLORIDE 0.9% 500 ML IV ONE (11:56)
[2022-10-06] MEDS ORDERED: PANTOPRAZOLE 40 MG INJ IVP ONE (12:00)
[2022-10-06] MEDS ORDERED: SODIUM CHLORIDE 0.9% 10ML INJ IV PRN (12:00)
--- NOTE | 2022-10-06 12:49 | RAD REPORT ---
EXAM DESCRIPTION: Redd Single View10/06/2022 12:31 pm CLINICAL HISTORY: PICC ups. Shortness of breath COMPARISON: none FINDINGS: The lungs appear clear of acute infiltrate. The heart is normal size. There is chronic elevation right hemidiaphragm
--- NOTE | 2022-10-06 12:51 | RAD REPORT ---
EXAM DESCRIPTION: RAD - Abdomen 1 View (KUB) - 10/06/2022 12:31 pm CLINICAL HISTORY: Abdomen pain FINDINGS: Subtle lucency adjacent to the medial aspect of the right hemidiaphragm. This probably is not significant. However, a small amount of pneumoperitoneum could result in this appearance. CT scan is recommended for further evaluation
[2022-10-06] MEDS: ACETAMINOPHEN 650MG/RECT SUPP PR PRN ×2 (14:15→22:23)
[2022-10-06] MEDS: PANTOPRAZOLE 40 MG INJ IVP SCH (20:04)
--- NOTE | 2022-10-06 21:10 | PN ---
Date of Progress Note: 10/06/2022 Subjective: This patient was seen about 4 o'clock in the afternoon. This is the case of a 51-year-o ld patient, who comes to us with intra-abdominal abscess, multiple episodes of diverticulitis in the past, came this time with abdominal pain. He ate some popcorn before this happened to him and then d eveloped this abdominal pain. He started Cipro and Flagyl on his own because he has that medication before, but he still came to the ER because the pain was not getting better and when he came to us, w hich shows intra-abdominal abscess. It is about 4 cm in size between loops of small bowel, so we hav e the assumption once again that may be coming from a contained perforation of the intestines since t here is no free air in the abdomen. The patient feels better right now. The only thing he has just is hiccups. He says that his abdomen is better. He feels better. He had a bowel movement. He is a febrile. No shortness of breath. No chest pain. Physical Examination: Chest: Clear. Abdomen: Still distended and generalized tenderness. Bowel sounds present. Extremities: Good capillary refill. Laboratory Data: WBC count checked today, is decreased. Plan: I discussed with the patient again these findings. He understands his chances for emergent la parotomy, possible bowel resection, and possible ostomy. He typically does not want to use that at t his moment. He understands the risks. He also does not want a colostomy. Unfortunately, if the per foration does not remain contained or the abscess gets better, that is the option that we might have at this moment. He still wants to try the antibiotics. He feels better, so he x-rays tod ay, we discussed that with him. A CAT scan was recommended. He is not going to go for surgery at th is moment. I asked him to at least let me do the CAT scan tomorrow, if not, at least to follow up an d make sure his abscess is not getting bigger. In case the abscess is getting bigger, then even thou gh clinically he may be feeling better, we might have to intervene either with surgery or interventional. We asked him once again to be n.p.o. and he is being compliance with that. HM/MODL Voice ID: [id number] Report ID: [id number]
[2022-10-07] MEDS: PIPER TAZO 3.375 GM in NA CHLORIDE 0.9% 100 ML IV SCH ×3 (00:30→17:31)
[2022-10-07] MEDS: NA CHLORIDE 0.9% 1,000 ML IV SCH ×3 (03:10→17:30)
[2022-10-07 04:01] LABS: Potassium 3.7 mEq/L (3.5-5.1)
[2022-10-07] MEDS: HYDROMORPHONE HCL 1 MG/ML INJ IV PRN ×6 (04:57→22:34)
[2022-10-07] MEDS ORDERED: KCL 20 MEQ/100 mL IVPB 20 MEQ/100 ML BAG IV SCH (05:30)
--- NOTE | 2022-10-07 06:48 | P.PN ---
Date of Service: 10/07/22 Subjective: Not feeling well today Abdominal pain feels worse hiccups continue CT today with noncontained perf waiting for surgery afebrile ROS: 10 point ROS as noted above, otherwise negative Physical Exam: GEN: Alert, oriented, uncomfortable appearing HEENT: Normal conjunctiva, sclera anicteric CV: sinus tachycardia 110s, no edema Pulm: Nonlabored respirations on room air, shallow respirations ABD: mod distention, diffuse tenderness Neuro: Normal speech, normal affect vitals reviewed Problem List: Intra-abdominal abscess with occult bowel perforation ~4-5 cm CKD 2 Diarrhea Class II obesity h/o diverticulitis, >5-6 episodes Intra-abdominal abscess with occult bowel perforation ~4-5 cm ~4th diverticulitis episodes since 2021 Previous EGD/scope was okay per patient CTabdomen (10/04): mod inflammation and thickening of small bowel loops with mild bowel distention and inflamed fat in LLQ. interloop abscess present measuring 4- [address] abdomen (10/07): occult bowel perforation, that is not contained blood cx: pending General surgery and ID Consulted continue IVF Continue IV zosyn (10/04-) last fever: 101.3 (10/04), +Leukocytosis improving PRN pain medication NPO for tentative surgery today 10/07 Encourage incentive spirometry Hiccups continue since 10/06 continue protonix CKD 2 GFR 2 years ago was 70 now is 62. Continue IVF monitor renal function improving Diarrhea Patient reports 3 episodes of diarrhea 10/05 Stool studies pending Continue enteric precautions. Soft BM 10/06 VTE: SCD Code: Full Dispo: OR today, monitor in ICU after
[2022-10-07] MEDS: PANTOPRAZOLE 40 MG INJ IVP SCH ×2 (08:53→20:35)
--- NOTE | 2022-10-07 09:51 | P.PN ---
Date of Service: 10/07/22 Chief Complaint: Abdominal pain. Subjective: Patient seen and examined at bedside. No acute events overnight. Patient reports persistent abdominal pain. Physical Examination Temp Pulse Resp BP Pulse Ox 98.0 F 114 H 16 199/101 H 97 10/07/22 08:00 10/07/22 08:00 10/07/22 08:00 10/07/22 08:00 10/07/22 08:00 General: Alert, Oriented x3, Mild distress HEENT: Atraumatic, Normocephalic Neck: Supple, JVD not distended Respiratory: Normal air movement. clear to auscultation. Cardiovascular: No edema, Normal pulses, tachycardic Gastrointestinal: Normal bowel sounds. Abdominal tenderness Musculoskeletal: No clubbing Integumentary: No rashes, No breakdown Neurological: Normal speech Laboratory Data - Reviewed Microbiology Data - Reviewed Imagings Data: - Reviewed Medications list: reviewed Assessment and Plan Problem List Intra-abdominal abscess CKD III Obesity Diarrhea History of diverticulitis Intra-abdominal abscess - CT abdomen pelvis w contrast 10/04: " In the left lower quadrant of the abdomen, there is moderate inflammation and thickening of small bowel loops with mild bowel distention and inflamed fat. There is a interloop abscess present measuring 4-5 cm. This may be related to inflammatory bowel disease or infection." - Blood cultures 10/04: no growth 24 hours - On Zosyn (10/04-) -Stool culture pending - leukocytosis improving. - CT abdomen pelvis 10/07: "Progressive collections containing air-fluid levels throughout the abdomen, with increasing edema throughout the mesentery and new trace layering fluid along the paracolic gutters. Findings raise concern for an occult bowel perforation, that is not contained. Mildly progressive proximal small bowel fluid filling with short-segment air-fluid levels, suggestive of ileus. " - General surgery recommending laparotomy. Recommendations - Continue Zosyn. On antibiotic day 4 - Patient scheduled for laparotomy today by Dr. Zavala. - monitor WBC and fever trends - pain management per primary team Case discussed with Alfred Mckeon
--- NOTE | 2022-10-07 10:01 | RAD REPORT ---
EXAM DESCRIPTION: CT - Abdomen Pelvis Wo Contrast - 10/07/2022 8:23 am CLINICAL HISTORY: f/u intrabdominal abscess COMPARISON: Abdomen Pelvis W Contrast dated 10/04/2022; Abdomen Pelvis W Contrast dated 07/13/2020 TECHNIQUE: Thin cut axial CT imaging of the abdomen and pelvis was performed without IV contrast. Mu ltiplanar reformats were generated and reviewed. All CT scans are performed using dose optimization technique as appropriate and may include automated exposure control or mA/KV adjustment according to patient size. FINDINGS: No suspicious findings in the lung bases. Bibasilar atelectatic changes, stable. The liver, spleen, and pancreas show no suspicious findings. Gallbladder and biliary tree are also wi thout suspicious finding. Symmetric renal contour, without suspicious parenchymal findings within limits of noncontrast techniq ue. No evidence of radiopaque calculi or hydroureteronephrosis. Mildly progressive proximal small-bowel fluid filling with short-segment air-fluid levels. No signifi cant dilation. There are new collections containing air-fluid levels in the upper central abdomen, ax ial image 48, measuring 5.7 x 4.6 cm, an ovoid collection interposed between the distal fourth part o f duodenum and the pancreatic tail on axial image 38 measuring 4.1 x 2.1 cm, as well as smaller gas a nd fluid containing collections in the right hemiabdomen superiorly on axial image 53. The palumbo long right hemiabdomen collection at the level of the umbilicus measures 7.7 x 4.5 cm. A more anterior co llection at that level which tracks below the level of the umbilicus is probably stable compared to t he prior exam, measuring 5.0 x 4.5 cm. A small collection in the pelvis, interposed between the dome of the bladder and the rectum measuring 6.1 x 4.4 cm may be new since the prior exam. Increasing dixon a throughout the mesentery, and new trace layering fluid seen along the paracolic gutters. The urinary bladder is without significant finding. No suspicious bony findings. IMPRESSION: Progressive collections containing air-fluid levels throughout the abdomen, with increas ing edema throughout the mesentery and new trace layering fluid along the paracolic gutters. Findings raise concern for an occult bowel perforation, that is not contained. Mildly progressive proximal small bowel fluid filling with short-segment air-fluid levels, suggestive of ileus. The findings were communicated to Jaquan Zavala on 10/07/2022 at 09:56 hours.
[2022-10-07] MEDS ORDERED: ONDANSETRON 4 MG/2 ML VIAL ONE ×3 (12:41→16:45)
[2022-10-07] MEDS ORDERED: propofoL 200 MG/20 ML VIAL IV ONE (13:16)
[2022-10-07] MEDS ORDERED: FENTANYL CITR 100 MCG/2 ML ONE ×2 (13:17→14:49)
[2022-10-07] MEDS ORDERED: MIDAZOLAM HCL 2 MG/2 ML INJ ONE (13:17)
[2022-10-07] MEDS ORDERED: LIDOCAINE 2% MPF 5 ML VIAL ONE (13:18)
[2022-10-07] MEDS ORDERED: ROCURONIUM 50 MG/5 ML VIAL IV ONE ×2 (13:18→14:33)
[2022-10-07] MEDS ORDERED: dexAMETHasone 10 MG/ML VIAL ONE (13:39)
[2022-10-07] MEDS ORDERED: Ringers Lactate 1,000 ML IV ONE ×2 (14:10→14:49)
--- NOTE | 2022-10-07 14:34 | PN ---
Date of Progress Note: 10/07/2022 This is just an updated from my note. I discussed with the patient today the finding on the CAT scan that shows exacerbation of his inflammation, possible abscess, and they believe they see also some a ir that did not see before and explained to him the importance of let me do a laparotomy, possible bowel resection, possible ostomy with benefits, alternatives, and risks including, but not l imited to infection, bleeding, damage to adjacent structures, anesthesia complication, CT, and even d eath. He thought about it. He discussed that with the press tender incendiary grenade and he decided. He is willing to t ry surgical options. He understands I am if possible trying to keep him away from the colostomy, but if this is perforated diverticulum, then unfortunately I am going to have to give him a colostomy. If he has a perforation that requires colostomy, that also will require, but I understand he is darrion rned about it. At this moment, he stated that even though his white count is improving, h is conditions are not clinically, so OR was emergently called and he was booked in OR. ARA/MODL Voice ID: [id number] Report ID: [id number]
[2022-10-07] MEDS ORDERED: KETOROLAC 30 MG/ML INJ ONE (14:35)
[2022-10-07] MEDS: MEPERIDINE HCL 25 MG/ML SYR ONE ×2 (15:58→16:25)
--- NOTE | 2022-10-07 16:02 | P.BOP ---
Preoperative diagnosis: intrabdominal abscess, SBO Postoperative diagnosis: same plus perforated diverticulitis, peritonitis Primary procedure: 1. Exploratory laparotomy, 2. creation end colostomy, Secondary procedure: 3. drainage of intrabdominal abscess, 4. lysis of adhesions Other procedure(s): 5. partial omentectomy Tight Rope Walker: CHRISTOPHER CONTRERAS (DESKTOP ENGINEER) Estimated blood loss: 200cc Specimen: culture Findings: Perforated diverticulitis with intrabdominal abscess Anesthesia: General Complications: None Drain(s): SHAMIR drain Transferred to: Recovery Room Condition: Good
[2022-10-07] MEDS: HYDROMORPHONE HCL 1 MG/ML INJ ONE ×4 (16:05→17:00)
[2022-10-07] MEDS ORDERED: ALBUMIN HUM 5% 250 ML IV ONE (16:19)
[2022-10-07] MEDS ORDERED: HYDROMORPHONE HCL 1 MG/ML INJ ONE (17:07)
[2022-10-07] MEDS ORDERED: AA 4.25 %/D5W/ELECTROLYTES 2,000 ML, Lipids 20% 250 ML with MULTIVITAMINS INJ 10 ML IV SCH ×3 (18:00)
[2022-10-07] MEDS ORDERED: DEXTROSE 10%-WATER 500 ML IV SCH (18:00)
[2022-10-07] MEDS: ACETAMINOPHEN 650MG/RECT SUPP PR PRN (19:51)
[2022-10-07] MEDS: Mupirocin NASAL 2 APPL/1 GM TUBE NAS SCH (20:35)
--- NOTE | 2022-10-07 23:55 | OP ---
Date of Procedure: 10/07/2022 Surgeon: Jaquan Zavala MD Social Science Analyst: Mila Escobedo. Preoperative Diagnoses: Intraabdominal abscess, small-bowel obstruction, and peritonitis. Postoperative Diagnoses: Intraabdominal abscess, small-bowel obstruction, peritonitis, perforated di verticulitis, and intraabdominal adhesions. Procedures: 1.Exploratory laparotomy. 2.Creation of end-colostomy. 3.Drainage of intraabdominal abscess. 4.Lysis of adhesions. 5.Partial omentectomy. Estimated Blood Loss: Less than 100 cc. Specimen: Culture. Findings: Perforated diverticulitis with intra-abdominal abscess, intraabdominal adhesions present. Anesthesia: General. Complications: None. Drains: SHAMIR #10 x2. Indications: This is a case of a 52-year-old patient, who come to us with intra-abdominal abscess. He has been diagnosed in the past with diverticulitis. He has always managed to improve without surg eloisa. At this time, he started to develop pain about a week ago and started taking Cipro and Flagyl t hat he had at home. Until a few days ago, with the pain got worse, so he come to the ER, diagnosed w ith intra-abdominal abscess. A repeat CT scan today shows some findings that making reconsider once again the surgical options that we offer him at the beginning and he signed a consent for a followup laparotomy, possible bowel resection, possible ostomy with benefits, alternatives, and risks includin g, but not limited to infection, bleeding, damage to adjacent structures, anesthesia complication, in tra-abdominal abscess, VT, and even . He also understands this may not relieve symptoms. He mi ght need more than one surgical intervention. He understands that he may end up with end colostomy t hat may or may not be reversible. He understands this can have a midline incision that will require wound care. Description Of Procedure: The patient was brought to the operating room and placed in supine positio n. Anesthesia was done without complication. Abdomen was prepped and draped in a sterile fashion. Midline incision was made all the way down to the fascia, which was opened under direct vision. Imme diately, we obtained purulent discharge from the abdomen consistent with the findings of an abscess. The patient had extensive intra-abdominal adhesions to the point that the omentum is stuck into the pelvis from previous inflammation in that area. Carefully with the help of LigaSure, we proceeded to take those adhesions down and we were able to release the omentum, but at least one-third of the ome ntum fat necrosis in that region, so we had partial omentectomy to remove that segment off the omentum. Profuse irrigation of the abdomen was done. We noticed the sigmoid colon to be the cu lprit of that. There was a lot of inflammation in that region. I believe it is not safe at [place] [facility] [place] trying to remove that bowel with all that inflammation since the planes are not well delineate d. So, what I did, I just found a place on the proximal colon that it can be disconnected. We trans ected that with the MANNY 80 to make sure we protect the ureters at all times. Then, after that, I pro ceeded to carefully mobilize the colon, making sure the ureter was protected at all times. I created an ostomy site in the left lower quadrant under direct visualization, able to pull this intestines t hrough without any strangulation and cyanosis. Then, after that, I have to release all the entire sm all bowel. It looks like it has previous adhesions in the past, probably from previous inflammation. We have all that released, since this was causing the bowel obstruction. The area was profusely ir rigated with several liters of fluid until completely clean that include the 4 quadrants of the abdom en. Stomach is soft and compressible. After we did that, then we proceeded to place 2 SHAMIR drains in the abdomen. We expect this patient to go to the third spacing and peritonitis at the same time. We expect the patient, if he does not respond to antibiotics, to have recurrent abscess though. SHAMIR reyna ins were left in that area. The omentum was placed over the bowel and then after that, the fascia wa s closed with #1 and #2 nylon in a running fashion. Irrigation was done of the midline incision, whi ch is going to be left open to close by secondary intent. Then, the area was packed with wet-to-dry dressing. After that, we proceeded then to make sure the colostomy. We opened the colostomy and the n put a full-thickness through the bowel and then wall and then subcutaneous tissue in 4 corners and then so also in between to create no cyanosis, good flow, and the dilatation shows full op ening with no twist. The patient tolerated the procedure well. At that moment, we sent the patient to Recovery in stable condition after sponge count and instrument count were correct and after dressi ngs were placed and the patient will be in the ICU . ARA/ASHUTOSH Voice ID: [id number] Report ID: [id number]
[2022-10-08] MEDS: HYDROMORPHONE HCL 1 MG/ML INJ IV PRN ×8 (01:27→21:19)
[2022-10-08] MEDS: PIPER TAZO 3.375 GM in NA CHLORIDE 0.9% 100 ML IV SCH ×3 (01:34→16:26)
[2022-10-08] MEDS ORDERED: PHENOL 1.4% ORAL SPRAY 180ML MM PRN (03:59)
[2022-10-08 05:14] LABS: Absolute Lymphocytes (CBC) 0.4 K/uL (0.7-4.9); Hematocrit 37.1 % (39.6-49.0); Lymphocytes % 2.7 % (15.3-44.8); MCV 95.6 fL (80-100); MPV 10.4 fL (7.6-11.3); Platelets 227 thou/uL (152-406); RBC Red Blood Cell Count 3.88 M/uL (4.33-5.43)
[2022-10-08 05:34] LABS: Magnesium 2.5 mg/dL (1.6-2.4); Phosphorus 1.9 mg/dL (2.5-4.9); Potassium 3.8 mEq/L (3.5-5.1)
[2022-10-08] MEDS: NA CHLORIDE 0.9% 1,000 ML IV SCH ×2 (05:45→07:53)
--- NOTE | 2022-10-08 06:57 | P.PN ---
Date of Service: 10/08/22 Subjective: Tachycardic with HR in 100-110s abdominal pain around surgical site urine clearing up, less red/maroon/orange hiccups continue afebrile ROS: 10 point ROS as noted above, otherwise negative Physical Exam: GEN: Alert, oriented, uncomfortable appearing HEENT: Normal conjunctiva, sclera anicteric CV: sinus tachycardia 100-110s, no edema Pulm: Nonlabored respirations on room air, shallow respirations ABD: mod distention, diffuse tenderness, colostomy with minimal dark maroon output, b/l SHAMIR drains in place Neuro: Normal speech, normal affect NGT in place vitals reviewed Problem List: Perforated Diverticulitis with Intra-abdominal abscess, now s/p ex lap, colostomy, I&D of intra-abdominal abscess, partial omentectomy (10/07) CKD 2 Diarrhea Class II obesity h/o diverticulitis, >5-6 episodes Perforated Diverticulitis with Intra-abdominal abscess, now s/p ex lap, colostomy, I&D of intra-abdominal abscess, partial omentectomy (10/07) CTabdomen (10/04): mod inflammation and thickening of small bowel loops with mild bowel distention and inflamed fat in LLQ. interloop abscess present measuring 4- [address] abdomen (10/07): occult bowel perforation, that is not contained blood cx: pending wound cx: pending General surgery and ID Consulted s/p ex lap, colostomy, I&D of intra-abdominal abscess, partial omentectomy (10/07) NGT to LIWS with green drainage yesterday/overnight [address] bilaterally lower abd Post operatively transferred to ICU for close monitoring Continue IV zosyn (10/04-) 100.8 temp (10/07), +Leukocytosis PRN pain medication Encourage incentive spirometry continue protonix Started PPN 10/07 continue until PICC placed PICC line ordered Transition to TPN CKD 2 GFR 2 years ago was 70 now is 62. Continue IVF monitor renal function improving / stable Diarrhea Patient reports 3 episodes of diarrhea 10/05 Stool studies pending Continue enteric precautions. Soft BM 10/06 VTE: SCD Code: Full Dispo: Home ~ 3 days Continue ICU level of care Pending further improvement
[2022-10-08] MEDS ORDERED: KCL 20 MEQ/100 mL IVPB 20 MEQ/100 ML BAG IV ONE (07:00)
[2022-10-08] MEDS ORDERED: HYDRALAZINE HCL 20 MG/ML VIAL IV PRN (07:42)
[2022-10-08] MEDS: PANTOPRAZOLE 40 MG INJ IVP SCH ×2 (07:53→21:19)
[2022-10-08] MEDS: Mupirocin NASAL 2 APPL/1 GM TUBE NAS SCH ×2 (07:54→21:19)
[2022-10-08] MEDS ORDERED: POTASSIUM PHOS IN 0.9 % NACL 15 MMOL/250 ML BAG IV ONE (08:00)
--- NOTE | 2022-10-08 12:12 | RAD REPORT ---
EXAM DESCRIPTION: Redd Single View10/08/2022 11:44 am CLINICAL HISTORY: Right upper arm PICC line placement COMPARISON: Abdomen 1 View (KUB) dated 10/06/2022; Chest Single View dated 10/06/2022; Abdomen 1 View (KUB) dated 07/16/2020; Abdomen 1 View (KUB) dated 07/15/2020 TECHNIQUE: Portable AP view of the chest. FINDINGS: The lungs are clear. Right arm PICC in place, with catheter tip projecting over the distal SVC. Enteric tube in place. Elevation of the right hemidiaphragm with right basilar atelectasis, sta ble. No pneumothorax or effusion. The cardiomediastinal contours are unremarkable. IMPRESSION: No acute cardiopulmonary process. Satisfactory positioning of right arm PICC.
[2022-10-08] MEDS: AMINO ACIDS 5 %/DEXTROSE 20 % 2,000 ML IV SCH (16:26)
--- NOTE | 2022-10-08 16:40 | PN ---
Date of Progress Note: 10/08/2022 Reason For Service: Perforated diverticulitis with intra-abdominal abscess, status post laparotomy, creation of end-colostomy, lysis of adhesions, and evacuation of intraabdominal abscess. The patient feels better. He is awake, alert, no distress. He is communicative. He is asking questions. Objective: Vital Signs: Pulse rate is 95. Respiration is 17, 18, and 21 average. Blood pressure v lillian between 136 systolic to 177 depends on pain. No shortness of breath and no chest pain. No fev er. Chest: Clear. Abdomen: Soft and depressible. Intact surgical site. Ostomy viable and still nonfunctional. Extremities: Good capillary refill. Laboratory Data: Blood work shows WBC count of 15 with hemoglobin of 12 and platelets of 227. Chemi stry shows chloride is 112, glucose 214. Plan: Rehab for out of bed and ambulation, incentive spirometry, SCDs. We can also continue the PPN to assist nutrition. Dressing changes will be wet-to-dry and move to wound VAC as soon as the patie nt can tolerate that. Continue antibiotics per Infectious Disease. HM/MODL Voice ID: [id number] Report ID: [id number]
[2022-10-08] MEDS ORDERED: AA 4.25 %/D5W/ELECTROLYTES 2,000 ML IV SCH (17:00)
[2022-10-08] MEDS: METOCLOPRAMIDE 10 MG/2mL INJ IV PRN (19:47)
[2022-10-09] MEDS: PIPER TAZO 3.375 GM in NA CHLORIDE 0.9% 100 ML IV SCH ×3 (00:56→16:57)
[2022-10-09] MEDS: HYDROMORPHONE HCL 1 MG/ML INJ IV PRN ×7 (01:55→22:37)
[2022-10-09] MEDS: METOCLOPRAMIDE 10 MG/2mL INJ IV PRN ×2 (03:59→13:30)
[2022-10-09 05:32] LABS: Albumin 1.8 g/dL (3.4-5.0); Bilirubin Total 0.7 mg/dL (0.2-1.0); Magnesium 2.4 mg/dL (1.6-2.4); Phosphorus 1.6 mg/dL (2.5-4.9); Potassium 3.3 mEq/L (3.5-5.1); Protein, Total 5.7 g/dL (6.4-8.2)
[2022-10-09 05:40] LABS: Absolute Lymphocytes (CBC) 0.8 K/uL (0.7-4.9); Hematocrit 33.9 % (39.6-49.0); Lymphocytes % 6.7 % (15.3-44.8); MCV 95.4 fL (80-100); MPV 10.5 fL (7.6-11.3); Platelets 227 thou/uL (152-406); RBC Red Blood Cell Count 3.56 M/uL (4.33-5.43)
[2022-10-09] MEDS: NA CHLORIDE 0.9% 1,000 ML IV SCH (05:45)
[2022-10-09 06:15] VITALS: BMI 35.2
--- NOTE | 2022-10-09 06:47 | P.PN ---
Date of Service: 10/09/22 Subjective: Feeling a little better today abdominal pain slowly improving hiccups continue ~same frequency and length of episodes short run of vtach when turned on right side overnight per nursing notes, PICC line moved back 2 cm afebrile ROS: 10 point ROS as noted above, otherwise negative Physical Exam: GEN: Alert, oriented, uncomfortable appearing HEENT: Normal conjunctiva, sclera anicteric CV: Regular rate and rhythm, no edema Pulm: Nonlabored respirations on room air, shallow respirations ABD: mod distention, diffuse tenderness, colostomy with minimal dark maroon output, b/l SHAMIR drains in place Neuro: Normal speech, normal affect NGT in place vitals reviewed Problem List: Perforated Diverticulitis with Intra-abdominal abscess, now s/p ex lap, colostomy, I&D of intra-abdominal abscess, partial omentectomy (10/07) Intractable hiccups CKD 2 Diarrhea Class II obesity h/o diverticulitis, >5-6 episodes Perforated Diverticulitis with Intra-abdominal abscess, now s/p ex lap, colostomy, I&D of intra-abdominal abscess, partial omentectomy (10/07) Intractable hiccups CTabdomen (10/04): mod inflammation and thickening of small bowel loops with mild bowel distention and inflamed fat in LLQ. interloop abscess present measuring 4- [address] abdomen (10/07): occult bowel perforation, that is not contained blood cx: NGTD wound cx: pending General surgery and ID Consulted s/p ex lap, colostomy, I&D of intra-abdominal abscess, partial omentectomy (10/07) NGAAT to LIWS'; 2 SHAMIR drains Continue IV zosyn (10/04-) afebrile, +Leukocytosis improving continue protonix Started PPN 10/07 continue until PICC placed PICC line placed 10/08 Transition to TPN PT consult Dr. Zavala started reglan for hiccups CKD 2 Continue IVF while NPO monitor renal function improving / stable Diarrhea Patient reports 3 episodes of diarrhea 10/05 Stool studies pending Continue enteric precautions. Soft BM 10/06 VTE: SCD Code: Full Dispo: Home ~ 3 days Continue ICU level of care Pending further improvement
[2022-10-09] MEDS: PANTOPRAZOLE 40 MG INJ IVP SCH ×2 (07:26→20:00)
[2022-10-09] MEDS: Mupirocin NASAL 2 APPL/1 GM TUBE NAS SCH ×2 (07:27→20:00)
[2022-10-09] MEDS: KCL 20 MEQ/100 mL IVPB 20 MEQ/100 ML BAG IV SCH ×2 (07:27→09:24)
[2022-10-09] MEDS ORDERED: POTASSIUM PHOS IN 0.9 % NACL 15 MMOL/250 ML BAG IV ONE (07:30)
[2022-10-09] MEDS: AMINO ACIDS 5 %/DEXTROSE 20 % 2,000 ML IV SCH (16:57)
[2022-10-10] MEDS: HYDROMORPHONE HCL 1 MG/ML INJ IV PRN ×8 (01:29→20:58)
[2022-10-10] MEDS: PIPER TAZO 3.375 GM in NA CHLORIDE 0.9% 100 ML IV SCH ×3 (01:30→17:27)
[2022-10-10] MEDS ORDERED: NA CHLORIDE 0.9% 100 ML ONE (01:33)
[2022-10-10] MEDS: NA CHLORIDE 0.9% 1,000 ML IV SCH (04:31)
[2022-10-10 05:13] LABS: Albumin 1.9 g/dL (3.4-5.0); Bilirubin Total 1.3 mg/dL (0.2-1.0); Magnesium 2.2 mg/dL (1.6-2.4); Phosphorus 2.6 mg/dL (2.5-4.9); Potassium 3.2 mEq/L (3.5-5.1); Protein, Total 5.8 g/dL (6.4-8.2)
--- NOTE | 2022-10-10 07:03 | P.PN ---
Date of Service: 10/10/22 Subjective: Doing okay, feels a little improvement hiccups ~same Abdominal pain slowly improving Able to get out of bed yesterday for a little bit afebrile NGT out ROS: 10 point ROS as noted above, otherwise negative Physical Exam: GEN: Alert, oriented, uncomfortable appearing HEENT: Normal conjunctiva, sclera anicteric CV: Regular rate and rhythm, no edema Pulm: Nonlabored respirations on room air, shallow respirations ABD: mod distention, diffuse tenderness, colostomy with minimal dark output, b/l SHAMIR drains in place Neuro: Normal speech, normal affect NGT in place vitals reviewed Problem List: Perforated Diverticulitis with Intra-abdominal abscess, now s/p ex lap, colostomy, I&D of intra-abdominal abscess, partial omentectomy (10/07) Intractable hiccups CKD 2 Diarrhea Class II obesity h/o diverticulitis, >5-6 episodes Perforated Diverticulitis with Intra-abdominal abscess, now s/p ex lap, colostomy, I&D of intra-abdominal abscess, partial omentectomy (10/07) Intractable hiccups CTabdomen (10/04): mod inflammation and thickening of small bowel loops with mild bowel distention and inflamed fat in LLQ. interloop abscess present measuring 4- [address] abdomen (10/07): occult bowel perforation, that is not contained blood cx: NGTD wound cx: pending General surgery and ID Consulted s/p ex lap, colostomy, I&D of intra-abdominal abscess, partial omentectomy (10/07) NGT out; 2 SHAMIR drains Continue IV zosyn (10/04-) afebrile, +Leukocytosis improving continue protonix Started PPN 10/07 continue until PICC placed PICC line placed 10/08 Transitioned to TPN, continue PT consult Dr. Zavala started reglan 10/08 for hiccups, continue CKD 2 Continue IVF while NPO monitor renal function improving / stable Diarrhea Patient reports 3 episodes of diarrhea 10/05 Stool studies pending Continue enteric precautions. Soft BM 10/06 VTE: SCD Code: Full Dispo: Home ~ 3 days Continue ICU level of care possible downgrade to floor tomorrow pending further improvement
[2022-10-10] MEDS: KCL 20 MEQ/100 mL IVPB 20 MEQ/100 ML BAG IV SCH ×2 (08:52→10:54)
[2022-10-10] MEDS: METOCLOPRAMIDE 10 MG/2mL INJ IV PRN ×2 (08:52→17:27)
[2022-10-10] MEDS: PANTOPRAZOLE 40 MG INJ IVP SCH ×2 (08:52→20:20)
[2022-10-10] MEDS: Mupirocin NASAL 2 APPL/1 GM TUBE NAS SCH ×2 (08:53→20:20)
--- NOTE | 2022-10-10 09:51 | P.PN ---
Date of Service: 10/10/22 Chief Complaint: Abdominal pain. Subjective: Patient seen in ICU. Partner at bedside. + abdominal pain 05/16 Patient underwent exploratory laparotomy, creation end colostomy, drainage of intra-abdominal abscess and lysis of adhesions on 10/[address] Zavala. Physical Examination Temp Pulse Resp BP Pulse Ox 98.5 F 104 H 23 H 146/83 H 97 10/10/22 08:00 10/10/22 09:00 10/10/22 09:00 10/10/22 09:00 10/10/22 08:00 General: Alert, Oriented x3. HEENT: Atraumatic, Normocephalic Neck: Supple, JVD not distended Respiratory: Normal air movement. clear to auscultation. Cardiovascular: No edema, Normal pulses, tachycardic Gastrointestinal: abdominal surgical site pain/tenderness. Colostomy. Musculoskeletal: No clubbing Integumentary: Abdominal surgery site dressing clean dry intact. Neurological: Normal speech Laboratory Data - Reviewed Microbiology Data - Reviewed Imagings Data: - Reviewed Medications list: reviewed Assessment and Plan Problem List Intra-abdominal abscess CKD III Obesity Diarrhea History of diverticulitis Intra-abdominal abscess - CT abdomen pelvis w contrast 10/04: " In the left lower quadrant of the abdomen, there is moderate inflammation and thickening of small bowel loops with mild bowel distention and inflamed fat. There is a interloop abscess present measuring 4-5 cm. This may be related to inflammatory bowel disease or infection." - Blood cultures 10/04: no growth 24 hours - On Zosyn (10/04-) -Stool culture pending - CT abdomen pelvis 10/07: "Progressive collections containing air-fluid levels throughout the abdomen, with increasing edema throughout the mesentery and new trace layering fluid along the paracolic gutters. Findings raise concern for an occult bowel perforation, that is not contained. Mildly progressive proximal small bowel fluid filling with short-segment air-fluid levels, suggestive of ileus. " -Patient underwent exploratory laparotomy on 10/07 with creation of end colostomy, drainage of intra-abdominal abscess, lysis of adhesions and partial omentectomy by Dr. Zavala. -Abdominal abscess culture with no growth to date Recommendations - Continue Zosyn (started 10/04) - Abdominal surgical site wound care per Dr. Zavala - monitor WBC and fever trends - Encourage incentive spirometry - pain management per primary team Case discussed with Alfred Mckeon
[2022-10-10] MEDS: LIPIDS 20% IV SCH ×3 (17:28)
[2022-10-10] MEDS: MULTIVITAMINS IV SCH ×3 (17:28)
[2022-10-10] MEDS: DEXTROSE 20% IV SCH ×3 (17:28)
[2022-10-10] MEDS: AMINO ACIDS IV SCH ×3 (17:28)
[2022-10-11] MEDS: HYDROMORPHONE HCL 1 MG/ML INJ IV PRN ×9 (00:03→23:09)
[2022-10-11] MEDS: NA CHLORIDE 0.9% 1,000 ML IV SCH ×2 (00:04→17:51)
[2022-10-11] MEDS: PIPER TAZO 3.375 GM in NA CHLORIDE 0.9% 100 ML IV SCH ×3 (00:35→17:35)
[2022-10-11 06:18] LABS: Bilirubin Total 1.4 mg/dL (0.2-1.0); Magnesium 2.3 mg/dL (1.6-2.4); Phosphorus 3.3 mg/dL (2.5-4.9); Potassium 3.7 mEq/L (3.5-5.1); Protein, Total 6.2 g/dL (6.4-8.2)
[2022-10-11] MEDS: Mupirocin NASAL 2 APPL/1 GM TUBE NAS SCH ×2 (08:30→20:20)
[2022-10-11] MEDS: METOCLOPRAMIDE 10 MG/2mL INJ IV PRN (08:30)
[2022-10-11] MEDS: PANTOPRAZOLE 40 MG INJ IVP SCH ×2 (08:30→20:20)
--- NOTE | 2022-10-11 08:52 | P.PN ---
Date of Service: 10/11/22 Chief Complaint: Abdominal pain. Subjective: Improving. + abdominal pain surgical site No acute events reported overnight. Physical Examination Temp Pulse Resp BP Pulse Ox 97.2 F 95 H 17 163/79 H 98 10/11/22 00:00 10/11/22 06:00 10/11/22 06:04 10/11/22 06:00 10/11/22 06:04 General: Alert, Oriented x3. HEENT: Atraumatic, Normocephalic Neck: Supple, JVD not distended Respiratory: Normal air movement. clear to auscultation. Cardiovascular: No edema, Normal pulses, tachycardic Gastrointestinal: abdominal surgical site pain/tenderness. Colostomy. Musculoskeletal: No clubbing Integumentary: Abdominal surgery site dressing clean dry intact. SHAMIR drain x 2 abdomen with serosanguineous drainage. Neurological: Normal speech Laboratory Data - Reviewed Microbiology Data - Reviewed Imagings Data: - Reviewed Medications list: reviewed Assessment and Plan Problem List Intra-abdominal abscess CKD III Obesity Diarrhea History of diverticulitis Intra-abdominal abscess - CT abdomen pelvis w contrast 10/04: " In the left lower quadrant of the abdomen, there is moderate inflammation and thickening of small bowel loops with mild bowel distention and inflamed fat. There is a interloop abscess present measuring 4-5 cm. This may be related to inflammatory bowel disease or infection." - Blood cultures 10/04: no growth 24 hours - Stool culture 10/06: No salmonella, shigella or campylobacter isolated - CT abdomen pelvis 10/07: "Progressive collections containing air-fluid levels throughout the abdomen, with increasing edema throughout the mesentery and new trace layering fluid along the paracolic gutters. Findings raise concern for an occult bowel perforation, that is not contained. Mildly progressive proximal small bowel fluid filling with short-segment air-fluid levels, suggestive of ileus. " - Patient underwent exploratory laparotomy on 10/07 with creation end colostomy, drainage of intra-abdominal abscess, lysis of adhesions and partial omentectomy by Dr. Zavala. - IntraAbdominal abscess culture 10/07: No growth to date - Currently on Zosyn (started 10/04-) Recommendations - Continue Zosyn for now (10/04-). Once cleared for PO intake, will switch to oral antibiotic. - Abdominal surgical site wound care per Dr. Zavala - WBC and fever trends - pain management per primary team Case discussed with Alfred Mckeon
--- NOTE | 2022-10-11 12:03 | P.PN ---
Subjective Date of Service: 10/11/22 Chief Complaint: intrabdominal abscess, perforated diverticuitis, exp lap, colostomy Subjective: Improving Review of Systems Cardiovascular: Unremarkable Gastrointestinal: Nausea (no), Vomiting (no), As per HPI Genitourinary: Dysuria (no) Integumentary: Rash (no) Physical Examination - Vital Signs Temperature: 97.2 F Blood Pressure: 157/89 Pulse: 89 Respirations: 17 Pulse Ox (%): 99 - Physical Exam General: Alert, In no apparent distress, Cooperative HEENT: PERRLA, EOMI Cardiovascular: No edema Gastrointestinal: Soft and benign, No ascites, No tenderness, No masses, Absent bowel sounds (ostomy intact ) Integumentary: No erythema, No warmth, No cyanosis Neurological: Normal speech Assessment And Plan - Plan ice chips OOB IS wound VAC ID for abx ambulate PPN Physician Review: Patient Assessed, Agree with Above Assessment and Plan
--- NOTE | 2022-10-11 16:54 | P.PN ---
Subjective Date of Service: 10/11/22 Chief Complaint: intrabdominal abscess, perforated diverticuitis, exp lap, colostomy Patient reports no new complaint. No recorded fever. Currently NPO. Physical Examination - Vital Signs Temperature: 97.2 F Blood Pressure: 142/80 Pulse: 103 Respirations: 20 Pulse Ox (%): 98 Assessment And Plan - Plan Physical Exam: GEN: Alert, oriented, NAD HEENT: Normal conjunctiva, sclera anicteric CV: Regular rate and rhythm, no edema Pulm: Clear to auscultation, adequate breath sounds. ABD: mild distention, colostomy with minimal dark output, b/l SHAMIR drains in place Neuro: Normal speech, normal affect NGT in place vitals reviewed Diagnosis Perforated Diverticulitis with Intra-abdominal abscess, now s/p ex lap, colostomy, I&D of intra-abdominal abscess, partial omentectomy (10/07) Intractable hiccups CKD 2 Diarrhea Class II obesity h/o diverticulitis, >5-6 episodes Perforated Diverticulitis with Intra-abdominal abscess, now s/p ex lap, colostomy, I&D of intra-abdominal abscess, partial omentectomy (10/07) Intractable hiccups CTabdomen (10/04): mod inflammation and thickening of small bowel loops with mild bowel distention and inflamed fat in LLQ. interloop abscess present measuring 4- [address] abdomen (10/07): occult bowel perforation, that is not contained blood cx: NGTD wound cx: pending General surgery and ID Consulted s/p ex lap, colostomy, I&D of intra-abdominal abscess, partial omentectomy (10/07) NGT out; 2 SHAMIR drains Continue IV zosyn (10/04-) on TPN via PICC continue protonix Continue PT. Reglan for hiccups. CKD 2 Stable. monitor renal function VTE: SCD Code: Full Dispo: Home ~ 3 days
[2022-10-11] MEDS: AMINO ACIDS 5 %/DEXTROSE 20 % 2,000 ML IV SCH (17:29)
[2022-10-11] MEDS: ONDANSETRON 4 MG/2 ML VIAL IV PRN (23:11)
[2022-10-12] MEDS: HYDROMORPHONE HCL 1 MG/ML INJ IV PRN ×9 (01:49→23:08)
[2022-10-12] MEDS: PIPER TAZO 3.375 GM in NA CHLORIDE 0.9% 100 ML IV SCH ×2 (01:49→08:07)
[2022-10-12] MEDS: METOCLOPRAMIDE 10 MG/2mL INJ IV PRN (02:54)
[2022-10-12] MEDS: ONDANSETRON 4 MG/2 ML VIAL IV PRN ×2 (05:29→20:48)
[2022-10-12 05:43] LABS: Absolute Lymphocytes (CBC) 0.8 K/uL (0.7-4.9); Hematocrit 38.2 % (39.6-49.0); Lymphocytes % 4.2 % (15.3-44.8); MCV 95.3 fL (80-100); MPV 10.3 fL (7.6-11.3); Platelets 387 thou/uL (152-406); RBC Red Blood Cell Count 4.01 M/uL (4.33-5.43)
[2022-10-12 05:58] LABS: Bilirubin Total 1.3 mg/dL (0.2-1.0); Potassium 3.7 mEq/L (3.5-5.1); Protein, Total 6.3 g/dL (6.4-8.2)
[2022-10-12 07:01] LABS: Blood Morphology Comment NOT SEEN (NOT SEEN); Platelet Estimate ADEQ; White Blood Cell Scan OK (OK)
[2022-10-12] MEDS: PANTOPRAZOLE 40 MG INJ IVP SCH ×2 (08:07→20:48)
[2022-10-12] MEDS: Mupirocin NASAL 2 APPL/1 GM TUBE NAS SCH (08:11)
[2022-10-12] MEDS ORDERED: KCL 20 MEQ/100 mL IVPB 20 MEQ/100 ML BAG IV ONE (09:00)
--- NOTE | 2022-10-12 09:39 | P.PN ---
Date of Service: 10/12/22 Chief Complaint: Abdominal pain. Subjective: Patient seen and examined at bedside. + nausea + vomiting + abdominal tenderness NG tube placed Physical Examination Temp Pulse Resp BP Pulse Ox 97.4 F 84 19 178/88 H 95 10/12/22 08:00 10/12/22 08:00 10/12/22 08:00 10/12/22 08:00 10/12/22 08:00 General: Alert, Oriented x3. HEENT: Atraumatic, Normocephalic Neck: Supple, JVD not distended Respiratory: Normal air movement. clear to auscultation. Cardiovascular: No edema, Normal pulses. Gastrointestinal: abdominal surgical site pain/tenderness. Colostomy. NG tube to low intermittent suction. Musculoskeletal: No clubbing. Moves all extremities. Integumentary: Abdominal surgery site dressing clean dry intact. SHAMIR drain x 2 abdomen with serosanguineous drainage. Neurological: Normal speech Laboratory Data - Reviewed Microbiology Data - Reviewed Imagings Data: - Reviewed Medications list: - Reviewed Assessment and Plan Problem List Intra-abdominal abscess CKD III Obesity Diarrhea History of diverticulitis Intra-abdominal abscess - CT abdomen pelvis w contrast 10/04: " In the left lower quadrant of the abdomen, there is moderate inflammation and thickening of small bowel loops with mild bowel distention and inflamed fat. There is a interloop abscess present measuring 4-5 cm. This may be related to inflammatory bowel disease or infection." - Blood cultures 10/04: no growth 24 hours - Stool culture 10/06: No salmonella, shigella or campylobacter isolated - CT abdomen pelvis 10/07: "Progressive collections containing air-fluid levels throughout the abdomen, with increasing edema throughout the mesentery and new trace layering fluid along the paracolic gutters. Findings raise concern for an occult bowel perforation, that is not contained. Mildly progressive proximal small bowel fluid filling with short-segment air-fluid levels, suggestive of ileus. " - Patient underwent exploratory laparotomy on 10/07 with creation end colostomy, drainage of intra-abdominal abscess, lysis of adhesions and partial omentectomy by Dr. Zavala. - IntraAbdominal abscess culture 10/07: No growth to date - Currently on Zosyn (started 10/04-) - Abdominal drainage culture 10/12: Pending Recommendations - Leukocytosis worsening. Abdominal fluid culture obtained from SHAMIR drain 10/12, pending. - Start on Meropenem IV - Follow up with culture results - Nausea/vomiting: Obtain XR chest and abdomen - Abdominal surgical site wound care per Dr. Zavala - Monitor WBC and fever trends - Pain management per primary team Case discussed with Alfred Mckeon
--- NOTE | 2022-10-12 09:58 | RAD REPORT ---
EXAM DESCRIPTION: RAD - Abdomen 1 View (KUB) - 10/12/2022 9:53 am CLINICAL HISTORY: Abdomen pain FINDINGS: Nasogastric tube within the mid stomach. Stomach is mildly dilated. Mild dilatation of multiple small bowel loops with diminished air in the colon could represent a part ial obstruction or adynamic ileus. Surgical drains in place
[2022-10-12] MEDS: NA CHLORIDE 0.9% 1,000 ML IV SCH (10:06)
[2022-10-12] MEDS: Meropenem 1,000 MG in NA CHLORIDE 0.9% 100 ML IV SCH ×2 (11:05→17:13)
--- NOTE | 2022-10-12 14:42 | PN ---
Date of Progress Note: 10/12/2022 Reason For Service: Perforated diverticulitis with intra-abdominal abscess, status post laparotomy, drainage of intraabdominal abscess and colostomy. Subjective: Mr. Man is a 52-year-old patient with above mention. He was improving yesterday. He was getting his appetite, although we have not given the diet yet. His abdomen was less distended , but today he started to feel nauseous again and vomited. Though we also noticed WBC count being 18 , although he is afebrile. A complete workup was done. We trying to look for the etiology of that i ncrease in WBC count. Objective: Chest: Bilateral breath sounds. Abdomen: Soft and depressible. Diminished bowel sounds. Ostomy still viable, but not functional. Midline incision change that today again and the fascia is still intact. There is no drainage coming from inside the belly. The area is granulating well to the point, we are going to change this to a wound VAC. The SHAMIR drain is still working with no purulent discharge coming from the SHAMIR drains. Unde r aseptic condition, I proceeded then to trying to get some of the fluid from the SHAMIR drain and send i t for cultures since the previous one failed to show any in the name of the bacteria even though we c ultured that from nicolasa pus from inside the belly. Extremities: Good capillary refill. No cellulit is. Laboratory Data: Blood work review shows a WBC count of 18.7 with hemoglobin of 12.6. INR is 1.65. Chloride is 109. Plan: Patient had vomited twice already and want back the NG tube. This dressing changes, we are go ing to change wet-to-dry to wound VAC. We will consult with Infectious Disease and possibility once again to rethink the antibiotic coverage. We encouraged ambulation. DVT prophylaxis. Incentive spi rometry and an if possible, the Lyons should be discontinued if we see no use for it from the medical standpoint. HM/MODL Voice ID: [id number] Report ID: [id number]
--- NOTE | 2022-10-12 16:51 | P.PN ---
Subjective Date of Service: 10/12/22 Chief Complaint: intrabdominal abscess, perforated diverticuitis, exp lap, colostomy Patient had multiple vomiting episodes today. No recorded fever but WBC trended up. He has been n.p.o. Physical Examination - Vital Signs Temperature: 97.2 F Blood Pressure: 164/75 Pulse: 81 Respirations: 15 Pulse Ox (%): 95 Assessment And Plan - Plan Physical Exam: GEN: Alert, oriented, NAD HEENT: Normal conjunctiva, sclera anicteric CV: Regular rate and rhythm, no edema Pulm: Clear to auscultation, adequate breath sounds. ABD: mild distention, colostomy with minimal dark output, b/l SHAMIR drains in place Neuro: Normal speech, normal affect NGT in place vitals reviewed Diagnosis Perforated Diverticulitis with Intra-abdominal abscess, now s/p ex lap, colostomy, I&D of intra-abdominal abscess, partial omentectomy (10/07) Intractable hiccups CKD 2 Diarrhea Class II obesity h/o diverticulitis, >5-6 episodes Perforated Diverticulitis with Intra-abdominal abscess, now s/p ex lap, colostomy, I&D of intra-abdominal abscess, partial omentectomy (10/07) Intractable hiccups CTabdomen (10/04): mod inflammation and thickening of small bowel loops with mild bowel distention and inflamed fat in LLQ. interloop abscess present measuring 4- [address] abdomen (10/07): occult bowel perforation, that is not contained blood cx: NGTD wound cx: pending General surgery and ID Consulted s/p ex lap, colostomy, I&D of intra-abdominal abscess, partial omentectomy (10/07) NGT out; [address] Patient vomited today. KUB shows ileus. Dr. Zavala is concerned of antibiotic failure. IV Zosyn changed to IV meropenem. Infectious disease consulted for their input/ on TPN via PICC Monitor CBC to follow leukocytosis. continue protonix Continue PT. Reglan for hiccups. CKD 2 Stable. monitor renal function VTE: SCD Code: Full Dispo: Patient may be a candidate for LTAC.
[2022-10-12] MEDS: DEXTROSE 20% IV SCH ×3 (17:23)
[2022-10-12] MEDS: LIPIDS 20% IV SCH ×3 (17:23)
[2022-10-12] MEDS: MULTIVITAMINS IV SCH ×3 (17:23)
[2022-10-12] MEDS: AMINO ACIDS IV SCH ×3 (17:23)
[2022-10-13] MEDS: Meropenem 1,000 MG in NA CHLORIDE 0.9% 100 ML IV SCH ×3 (01:00→17:59)
[2022-10-13] MEDS: HYDROMORPHONE HCL 1 MG/ML INJ IV PRN ×9 (02:14→22:50)
[2022-10-13 05:06] LABS: Hematocrit 36.6 % (39.6-49.0); Lymphocytes % 5.9 % (15.3-44.8); MCV 95.4 fL (80-100); MPV 10.2 fL (7.6-11.3); Platelets 382 thou/uL (152-406); RBC Red Blood Cell Count 3.84 M/uL (4.33-5.43)
[2022-10-13 05:14] LABS: Potassium 3.4 mEq/L (3.5-5.1)
[2022-10-13] MEDS: KCL 20 MEQ/100 mL IVPB 20 MEQ/100 ML BAG IV SCH ×2 (06:24→09:44)
[2022-10-13] MEDS: NA CHLORIDE 0.9% 1,000 ML IV SCH (06:25)
[2022-10-13] MEDS: ONDANSETRON 4 MG/2 ML VIAL IV PRN (06:30)
--- NOTE | 2022-10-13 09:38 | P.PN ---
Date of Service: 10/13/22 Chief Complaint: Abdominal pain. Subjective: Patient seen and examined at bedside. In no apparent distress, breathing comfortably on room air. He reports feeling much better today. No vomiting or hiccups. Reports mild nausea. No acute events reported overnight. Patient's partner at bedside. Physical Examination Temp Pulse Resp BP Pulse Ox 97.3 F 80 16 155/77 H 97 10/13/22 12:00 10/13/22 12:00 10/13/22 12:00 10/13/22 12:00 10/13/22 12:00 General: Alert, Oriented x3. HEENT: Atraumatic, Normocephalic Neck: Supple, JVD not distended Respiratory: Normal air movement. clear to auscultation. Cardiovascular: No edema, Normal pulses. Gastrointestinal: abdominal surgical site pain/tenderness. Colostomy. NG tube to low intermittent suction. Musculoskeletal: No clubbing. Moves all extremities. Integumentary: Abdominal surgery site with wound vac. SHAMIR drain x 2 abdomen with serosanguineous drainage. Neurological: Normal speech Laboratory Data - Reviewed Microbiology Data - Reviewed Imagings Data: - Reviewed Medications list: - Reviewed Assessment and Plan Problem List Intra-abdominal abscess CKD III Obesity Diarrhea History of diverticulitis Intra-abdominal abscess - CT abdomen pelvis w contrast 10/04: " In the left lower quadrant of the abdomen, there is moderate inflammation and thickening of small bowel loops with mild bowel distention and inflamed fat. There is a interloop abscess present measuring 4-5 cm. This may be related to inflammatory bowel disease or infection." - Stool culture 10/06: No salmonella, shigella or campylobacter isolated - CT abdomen pelvis 10/07: "Progressive collections containing air-fluid levels throughout the abdomen, with increasing edema throughout the mesentery and new trace layering fluid along the paracolic gutters. Findings raise concern for an occult bowel perforation, that is not contained. Mildly progressive proximal small bowel fluid filling with short-segment air-fluid levels, suggestive of ileus. " - Patient underwent exploratory laparotomy on 10/07 with creation end colostomy, drainage of intra-abdominal abscess, lysis of adhesions and partial omentectomy by Dr. Zavala. - IntraAbdominal abscess culture 10/07: No growth to date - Previously on Zosyn (10/04-10/12) which was switched to Meropenem on 10/12 due to worsening leukocytosis. - Abdominal drainage culture 10/12: Preliminary- No organisms seen Leukocytosis slightly improving (WBC 18.7 -> 16.9). Afebrile. Blood cultures 10/04: no growth 24 hours Recommendations - Started on Meropenem 10/12. Continue for now. - Monitor WBC and fever trends - Abdominal surgical site wound care per Dr. Zavala - Pain management per primary team Case discussed with Alfred Mckeon
[2022-10-13] MEDS: PANTOPRAZOLE 40 MG INJ IVP SCH ×2 (09:48→20:44)
--- NOTE | 2022-10-13 15:25 | RAD REPORT ---
EXAM DESCRIPTION: CTAbdomen Pelvis W Contrast - 10/13/2022 2:57 pm CLINICAL HISTORY: Abdominal pain. Bowel perforation r/o intra-abdominal abscess COMPARISON: Abdomen Pelvis W Contrast dated 10/04/2022; Abdomen Pelvis W Contrast dated 07/13/2020; Abdomen Pelvis Wo Contrast dated 10/07/2022; Abdomen 1 View (KUB) dated 10/12/2022 TECHNIQUE: Biphasic CT imaging of the abdomen and pelvis was performed with 100 ml non-ionic IV cont rast. All CT scans are performed using dose optimization technique as appropriate and may include automated exposure control or mA/KV adjustment according to patient size. FINDINGS: Linear atelectasis is present in both posterior lung bases.Enteric tube tip is just enteri ng the stomach. The liver is prominent in size. No liver mass or biliary dilatation. Spleen is normal in size. The pa ncreas, adrenal glands and kidneys are within normal limits. Motion artifact is present on the study lower abdomen. There are not to surgical drains noted. No sig nificant fluid collections are seen. Mild interloop fluid noted. Mild postoperative pneumoperitoneum. Intra-abdominal fat and pelvic fat is mildly inflamed. Left lower quadrant ostomy. No suspicious bony findings. Lyons catheter. IMPRESSION: No abscess is seen.
--- NOTE | 2022-10-13 16:25 | P.PN ---
Subjective Date of Service: 10/13/22 Chief Complaint: intrabdominal abscess, perforated diverticuitis, exp lap, colostomy Patient reports feeling better today. No recorded fever today. WBC count trended down from yesterday He remain n.p.o. Physical Examination - Vital Signs Temperature: 97.3 F Blood Pressure: 155/77 Pulse: 80 Respirations: 16 Pulse Ox (%): 97 Assessment And Plan - Plan Physical Exam: GEN: Alert, oriented, NAD HEENT: Normal conjunctiva, sclera anicteric CV: Regular rate and rhythm, no edema Pulm: Clear to auscultation, adequate breath sounds. ABD: mild distention, colostomy with minimal dark output, b/l SHAMIR drains in place, hypoactive bowel sounds. Neuro: Normal speech, normal affect NGT in place vitals reviewed Diagnosis Perforated Diverticulitis with Intra-abdominal abscess, now s/p ex lap, colostomy, I&D of intra-abdominal abscess, partial omentectomy (10/07) Intractable hiccups CKD 2 Diarrhea Class II obesity h/o diverticulitis, >5-6 episodes Perforated Diverticulitis with Intra-abdominal abscess, now s/p ex lap, colostomy, I&D of intra-abdominal abscess, partial omentectomy (10/07) Intractable hiccups CTabdomen (10/04): mod inflammation and thickening of small bowel loops with mild bowel distention and inflamed fat in LLQ. interloop abscess present measuring 4- [address] abdomen (10/07): occult bowel perforation, that is not contained blood cx: NGTD wound cx: pending General surgery and ID Consulted s/p ex lap, colostomy, I&D of intra-abdominal abscess, partial omentectomy (10/07) [address] NG tube removed 10/11 and reinserted on 10/12. CT abdomen and pelvis today shows no intra-abdominal abscess. IV Zosyn changed to IV meropenem. Continue IV meropenem Infectious disease is following on TPN via PICC Monitor CBC to follow leukocytosis. continue protonix Continue PT. Reglan for hiccups. Increase activity as tolerated. THERESA Resolved. monitor renal function VTE: SCD Code: Full Dispo: Home.
[2022-10-13] MEDS: AMINO ACIDS 5 %/DEXTROSE 20 % 2,000 ML IV SCH (17:00)
[2022-10-14] MEDS: HYDROMORPHONE HCL 1 MG/ML INJ IV PRN ×9 (00:48→23:56)
[2022-10-14] MEDS: Meropenem 1,000 MG in NA CHLORIDE 0.9% 100 ML IV SCH ×3 (00:50→16:57)
[2022-10-14] MEDS: NA CHLORIDE 0.9% 1,000 ML IV SCH (05:09)
[2022-10-14 05:44] LABS: Hematocrit 38.6 % (39.6-49.0); Lymphocytes % 6.4 % (15.3-44.8); MCV 94.5 fL (80-100); MPV 10.2 fL (7.6-11.3); Platelets 380 thou/uL (152-406); RBC Red Blood Cell Count 4.09 M/uL (4.33-5.43)
[2022-10-14 05:56] LABS: Potassium 3.4 mEq/L (3.5-5.1)
[2022-10-14] MEDS: KCL 20 MEQ/100 mL IVPB 20 MEQ/100 ML BAG IV SCH ×2 (08:17→10:05)
[2022-10-14] MEDS: PANTOPRAZOLE 40 MG INJ IVP SCH ×2 (08:20→20:38)
--- NOTE | 2022-10-14 08:27 | P.PN ---
Date of Service: 10/14/22 Chief Complaint: Abdominal pain. Subjective: Improving Patient seen and examined at bedside. + hiccups + abdominal tenderness No acute events reported overnight. Physical Examination Temp Pulse Resp BP Pulse Ox 98.3 F 76 16 165/80 H 98 10/14/22 04:00 10/14/22 04:00 10/14/22 04:00 10/14/22 04:00 10/14/22 04:00 General: Alert, Oriented x3. HEENT: Atraumatic, Normocephalic Neck: Supple, JVD not distended Respiratory: Normal air movement. clear to auscultation. Cardiovascular: No edema, Normal pulses. Gastrointestinal: hypoactive bowel sounds. abdominal surgical site pain/tenderness. Colostomy with minimal output. NG tube to low intermittent suction with dark green output Musculoskeletal: No clubbing. Moves all extremities. Integumentary: Abdominal surgery site with wound vac. abdominal SHAMIR drain with serosanguineous output. Neurological: Normal speech Laboratory Data - Reviewed Microbiology Data - Blood cultures 10/04: no growth 24 hours - Stool culture 10/06: No salmonella, shigella or campylobacter isolated - IntraAbdominal abscess culture 10/07: No growth to date - Abdominal drainage culture 10/12: No growth to date Imagings Data: - Reviewed Medications list: - Reviewed Assessment and Plan Problem List Intra-abdominal abscess CKD III Obesity Diarrhea History of diverticulitis Intra-abdominal abscess - 10/04 CT abdomen pelvis w contrast: " In the left lower quadrant of the abdomen, there is moderate inflammation and thickening of small bowel loops with mild bowel distention and inflamed fat. There is a interloop abscess present measuring 4-5 cm. This may be related to inflammatory bowel disease or infection." - Patient wishes to hold off on surgery at the time and continue IV antibiotic Zosyn. - Due to no improvement in symptoms / worsening, repeat CT abdomen obtained 10/07. - CT abdomen pelvis 10/07: "Progressive collections containing air-fluid levels throughout the abdomen, with increasing edema throughout the mesentery and new trace layering fluid along the paracolic gutters. Findings raise concern for an occult bowel perforation, that is not contained. Mildly progressive proximal small bowel fluid filling with short-segment air-fluid levels, suggestive of ileus. " - s/p exploratory laparotomy on 10/07 with creation end colostomy, drainage of intra-abdominal abscess, lysis of adhesions and partial omentectomy by Dr. Zavala. - Intra abdominal abscess culture 10/07: No growth to date - Abdominal drainage culture 10/12: No growth to date - XR KUB 10/12: "Nasogastric tube within the mid stomach. Stomach is mildly dilated. Mild dilatation of multiple small bowel loops with diminished air in the colon could represent a partial obstruction or adynamic ileus. Surgical drains in place. " - CT abdomen pelvis 10/13: " No abscess is seen." - Previously on Zosyn (10/04-10/12) which was switched to Meropenem on 10/12 due to worsening leukocytosis. - Leukocytosis slightly improving. Afebrile. Colostomy with minimal output. hypoactive bowel sounds. SHAMIR drain abdomen abdominal surgical site with wound vac in place Recommendations - Started on Meropenem 10/12, continue for now. - Patient remains NPO. - Monitor WBC and fever trends - Abdominal surgical site wound care per Dr. Zavala - Abdominal binder - Pain management per primary team - physical therapy Case discussed with Alfred Mckeon
--- NOTE | 2022-10-14 16:44 | P.PN ---
Subjective Date of Service: 10/14/22 Chief Complaint: intrabdominal abscess, perforated diverticuitis, exp lap, colostomy Patient states he is doing much better today. No recorded fever. Patient states that he passed flatus. He remain n.p.o. Physical Examination - Vital Signs Temperature: 98.5 F Blood Pressure: 155/78 Pulse: 72 Respirations: 16 Pulse Ox (%): 98 Assessment And Plan - Plan Physical Exam: GEN: Alert, oriented, NAD HEENT: Normal conjunctiva, sclera anicteric CV: Regular rate and rhythm, no edema Pulm: Clear to auscultation, adequate breath sounds. ABD: No distention, colostomy with minimal dark output, b/l SHAMIR drains in place, hypoactive bowel sounds. Neuro: Normal speech, normal affect NGT in place vitals reviewed Diagnosis Perforated Diverticulitis with Intra-abdominal abscess, now s/p ex lap, colostomy, I&D of intra-abdominal abscess, partial omentectomy (10/07) Intractable hiccups CKD 2 Diarrhea Class II obesity h/o diverticulitis, >5-6 episodes Perforated Diverticulitis with Intra-abdominal abscess, now s/p ex lap, colostomy, I&D of intra-abdominal abscess, partial omentectomy (10/07) Intractable hiccups CTabdomen (10/04): mod inflammation and thickening of small bowel loops with mild bowel distention and inflamed fat in LLQ. interloop abscess present measuring 4- [address] abdomen (10/07): occult bowel perforation, that is not contained blood cx: NGTD wound cx: pending General surgery and ID Consulted s/p ex lap, colostomy, I&D of intra-abdominal abscess, partial omentectomy (10/07) [address] NG tube removed 10/11 and reinserted on 10/12. Repeat CT abdomen and pelvis 10/13 shows no intra-abdominal abscess. IV Zosyn changed to IV meropenem. Continue IV meropenem Infectious disease is following on TPN via PICC Monitor CBC to follow leukocytosis. continue protonix Continue PT. Hiccups resolved. Reglan as needed. Increase activity as tolerated. General surgery Dr. Zavala is following. THERESA Resolved. monitor renal function VTE: SCD Code: Full Dispo: Home.
[2022-10-14] MEDS: AMINO ACIDS IV SCH ×3 (17:04)
[2022-10-14] MEDS: LIPIDS 20% IV SCH ×3 (17:04)
[2022-10-14] MEDS: DEXTROSE 20% IV SCH ×3 (17:04)
[2022-10-14] MEDS: MULTIVITAMINS IV SCH ×3 (17:04)
--- NOTE | 2022-10-14 18:21 | PN ---
Date of Progress Note: 10/14/2022 Reason For Service: Perforated diverticulitis with intra-abdominal abscess, laparotomy, and colostom y. Subjective: The patient is doing better. No nausea, no vomiting today. NG tube is minimal. No fev er. Objective: Chest: Clear. Abdomen: Bowel sounds positive. gas coming through the ostomy itself and some liquid com ing out. No large bowel movement. Extremities: Good capillary refill. Laboratory Data: Blood work reviewed. Plan: Continue the antibiotics per ID, out of bed. Continue wound VAC. We are going to clamp the N G tube today and start on clears. If he starts to vomiting, then we will go back and put in suction once again, then we advance slowly as we go. ARA/ASHUTOSH Voice ID: [id number] Report ID: [id number]
[2022-10-14] MEDS: ONDANSETRON 4 MG/2 ML VIAL IV PRN (20:38)
[2022-10-14] MEDS ORDERED: KCL 20 MEQ/100 mL IVPB 20 MEQ/100 ML BAG IV SCH (23:45)
[2022-10-15] MEDS: NA CHLORIDE 0.9% 1,000 ML IV SCH (01:41)
[2022-10-15] MEDS: Meropenem 1,000 MG in NA CHLORIDE 0.9% 100 ML IV SCH ×3 (01:41→17:34)
[2022-10-15] MEDS: HYDROMORPHONE HCL 1 MG/ML INJ IV PRN ×7 (01:47→20:57)
[2022-10-15] MEDS: ONDANSETRON 4 MG/2 ML VIAL IV PRN (05:02)
[2022-10-15 05:13] LABS: Absolute Lymphocytes (CBC) 1.2 K/uL (0.7-4.9); Hematocrit 40.1 % (39.6-49.0); Lymphocytes % 7.3 % (15.3-44.8); MCV 94.7 fL (80-100); MPV 10.7 fL (7.6-11.3); Platelets 372 thou/uL (152-406); RBC Red Blood Cell Count 4.24 M/uL (4.33-5.43)
[2022-10-15 05:35] LABS: Bilirubin Total 0.6 mg/dL (0.2-1.0); Potassium 3.5 mEq/L (3.5-5.1); Protein, Total 5.9 g/dL (6.4-8.2)
[2022-10-15] MEDS ORDERED: KCL 20 MEQ/100 mL IVPB 20 MEQ/100 ML BAG IV SCH (06:00)
[2022-10-15 07:23] LABS: Platelet Estimate ADEQ; Platelets, Giant FEW PRESENT
[2022-10-15 07:24] LABS: Blood Morphology Comment NOT SEEN (NOT SEEN)
[2022-10-15] MEDS: PANTOPRAZOLE 40 MG INJ IVP SCH ×2 (09:22→20:57)
--- NOTE | 2022-10-15 14:39 | P.PN ---
Subjective Date of Service: 10/15/22 Chief Complaint: intrabdominal abscess, perforated diverticuitis, exp lap, colostomy Patient had a vomiting episode last night. No recorded fever. Patient states that he been passing flatus. He remain n.p.o. Physical Examination - Vital Signs Temperature: 97.7 F Blood Pressure: 149/73 Pulse: 73 Respirations: 16 Pulse Ox (%): 98 Assessment And Plan - Plan Physical Exam: GEN: Alert, oriented, NAD HEENT: Normal conjunctiva, sclera anicteric CV: Regular rate and rhythm, no edema Pulm: Clear to auscultation, adequate breath sounds. ABD: No distention, colostomy with minimal dark output, b/l SHAMIR drains in place, hypoactive bowel sounds. Neuro: Normal speech, normal affect NGT in place vitals reviewed Diagnosis Perforated Diverticulitis with Intra-abdominal abscess, now s/p ex lap, colostomy, I&D of intra-abdominal abscess, partial omentectomy (10/07) Intractable hiccups CKD 2 Diarrhea Class II obesity h/o diverticulitis, >5-6 episodes Perforated Diverticulitis with Intra-abdominal abscess, now s/p ex lap, colostomy, I&D of intra-abdominal abscess, partial omentectomy (10/07) Intractable hiccups CTabdomen (10/04): mod inflammation and thickening of small bowel loops with mild bowel distention and inflamed fat in LLQ. interloop abscess present measuring 4- [address] abdomen (10/07): occult bowel perforation, that is not contained blood cx: NGTD wound cx: No growth. General surgery and ID Consulted s/p ex lap, colostomy, I&D of intra-abdominal abscess, partial omentectomy (10/07) [address] NG tube removed 10/11 and reinserted on 10/12. Repeat CT abdomen and pelvis 10/13 shows no intra-abdominal abscess. IV Zosyn changed to IV meropenem. Continue IV meropenem. NG tube we hooked to suction. No change in leukocytosis over the last few days. Infectious disease is following on TPN via PICC Monitor CBC to follow leukocytosis. continue protonix Continue PT. Hiccups resolved. Reglan as needed. Increase activity as tolerated. General surgery Dr. Zavala is following. Transaminitis Unclear significance. Liver noted to be prominent in size according to CT Monitor LFTs. THERESA Resolved. monitor renal function VTE: SCD Code: Full Dispo: Home.
--- NOTE | 2022-10-15 14:49 | PN ---
Date of Progress Note: 10/15/2022 Please note, I am covering for Dr. Zavala. I have discussed the care of this patient from admission with Dr. Zavala as well as review of the computerized information. Subjective: Patient is awake, alert. Had some nausea and vomiting yesterday. An NG tube was put quite a bit out. He is passing very minimal gas through the ostomy and no stool yet. Patient had Emmy's procedure for perforated diverticulitis. His vital signs are stable. He is afebrile. Laboratory Data: Reviewed. His white count is 16.4 with a left shift. CT of the abdomen done a couple of days ago reviewed and it shows no abscess, but there is a lot of inflammation still present. Assessment: A 52-year-old gentleman status post Emmy's procedure with prolonged ileus. Recommendation: At this time, I will continue n.p.o. except for ice chips. NG tube, TPN, and IV antibiotics. Patient may need long-term acute care while he recovers from this disease. SARTHAK/ASHUTOSH Voice ID: [id number] Report ID: [id number] MTDD
[2022-10-15] MEDS: AMINO ACIDS 5 %/DEXTROSE 20 % 2,000 ML IV SCH (17:36)
[2022-10-16] MEDS: NA CHLORIDE 0.9% 1,000 ML IV SCH ×2 (00:03→16:33)
[2022-10-16] MEDS: Meropenem 1,000 MG in NA CHLORIDE 0.9% 100 ML IV SCH ×3 (00:03→16:34)
[2022-10-16] MEDS: HYDROMORPHONE HCL 1 MG/ML INJ IV PRN ×4 (00:05→22:08)
[2022-10-16] MEDS: METOCLOPRAMIDE 10 MG/2mL INJ IV PRN (03:17)
[2022-10-16 03:35] LABS: Hematocrit 37.8 % (39.6-49.0); Lymphocytes % 7.6 % (15.3-44.8); MCV 93.3 fL (80-100); MPV 10.5 fL (7.6-11.3); Platelets 304 thou/uL (152-406); RBC Red Blood Cell Count 4.05 M/uL (4.33-5.43)
[2022-10-16 03:53] LABS: Bilirubin Total 0.6 mg/dL (0.2-1.0); Potassium 3.2 mEq/L (3.5-5.1); Protein, Total 5.8 g/dL (6.4-8.2)
[2022-10-16] MEDS: KCL 20 MEQ/100 mL IVPB 20 MEQ/100 ML BAG IV SCH ×2 (05:23→08:15)
[2022-10-16] MEDS: PANTOPRAZOLE 40 MG INJ IVP SCH ×2 (08:14→22:08)
--- NOTE | 2022-10-16 08:37 | PN ---
Subjective: Patient is awake, alert. No complaint. Feels a little better. The patient has a small amount of stool in his ostomy, but he also has gas present now. Objective: Vital signs: Stable. He is afebrile. His SHAMIR put out 30 cc. NG tube put out 200 cc. H is white count is down to 13,000. Abdomen: Benign with positive bowel sounds. Dressing is clean, dry, intact. Assessment: Status post Emmy's procedure with prolonged ileus. Recommendations: We will clamp the NG tube and give him sips of clear liquids and see how the patien t does, slowly advance the liquids as tolerated. The patient is slowly improving. /MODL Voice ID: [id number] Report ID: [id number]
--- NOTE | 2022-10-16 09:42 | RAD REPORT ---
EXAM DESCRIPTION: RAD - Abdomen 1 View (KUB) - 10/16/2022 9:25 am CLINICAL HISTORY: Placement of NGT/OGT. Post Insertion. COMPARISON: Abdomen 1 View (KUB) dated 10/12/2022; Abdomen 1 View (KUB) dated 10/06/2022; Abdomen 1 Vie w (KUB) dated 07/16/2020; Abdomen 1 View (KUB) dated 07/15/2020 TECHNIQUE: Single AP view of the abdomen. FINDINGS: Enteric tube tip projects over the body of the stomach. Right arm PICC in place with anna ter tip projecting at the superior cavoatrial junction. Nonobstructive bowel gas pattern. No air-fluid levels, free air, or pneumatosis. No suspicious calcif ications. No significant bony abnormality. Visualized Lung bases are clear. Elevation of the right hemidiaphragm again seen IMPRESSION: Enteric tube tip projects at the level of the body of the stomach. No other acute findin gs.
--- NOTE | 2022-10-16 15:04 | P.PN ---
Subjective Date of Service: 10/16/22 Chief Complaint: intrabdominal abscess, perforated diverticuitis, exp lap, colostomy Patient no vomiting today No recorded fever. Patient states that he been passing flatus. Stool output from colostomy bag today. Physical Examination - Vital Signs Temperature: 96.9 F Blood Pressure: 132/70 Pulse: 70 Respirations: 17 Pulse Ox (%): 96 Assessment And Plan - Plan Physical Exam: GEN: Alert, oriented, NAD HEENT: Normal conjunctiva, sclera anicteric CV: Regular rate and rhythm, no edema Pulm: Clear to auscultation, adequate breath sounds. ABD: No distention, colostomy with minimal dark output, b/l SHAMIR drains in place, hypoactive bowel sounds. Neuro: Normal speech, normal affect NGT in place vitals reviewed Diagnosis Perforated Diverticulitis with Intra-abdominal abscess, now s/p ex lap, colostomy, I&D of intra-abdominal abscess, partial omentectomy (10/07) Intractable hiccups CKD 2 Diarrhea Class II obesity h/o diverticulitis, >5-6 episodes Perforated Diverticulitis with Intra-abdominal abscess, now s/p ex lap, colostomy, I&D of intra-abdominal abscess, partial omentectomy (10/07) Intractable hiccups CTabdomen (10/04): mod inflammation and thickening of small bowel loops with mild bowel distention and inflamed fat in LLQ. interloop abscess present measuring 4- [address] abdomen (10/07): occult bowel perforation, that is not contained blood cx: NGTD wound cx: No growth. General surgery and ID are following. s/p ex lap, colostomy, I&D of intra-abdominal abscess, partial omentectomy (10/07) [address] NG tube removed 10/11 and reinserted on 10/12. Repeat CT abdomen and pelvis 10/13 shows no intra-abdominal abscess. IV Zosyn changed to IV meropenem. Continue IV meropenem. NG tube rehooked to suction 10/15. Leukocytosis is improving. Clamp NG tube and clear liquid diet today per Dr. Hayes Infectious disease is following on TPN via PICC Continue protonix Continue PT. Hiccups resolved. Reglan as needed. Increase activity as tolerated. Transaminitis Unclear significance. Liver noted to be prominent in size according to CT LFTs improving. THERESA Resolved. monitor renal function VTE: SCD Code: Full Dispo: Home.
[2022-10-16] MEDS: AMINO ACIDS 5 %/DEXTROSE 20 % 2,000 ML IV SCH (16:36)
[2022-10-16] MEDS: ENOXAPARIN 40 MG/0.4 ML SQ SCH (16:37)
[2022-10-17] MEDS: Meropenem 1,000 MG in NA CHLORIDE 0.9% 100 ML IV SCH ×3 (01:24→18:03)
[2022-10-17] MEDS: HYDROMORPHONE HCL 1 MG/ML INJ IV PRN ×6 (01:33→21:21)
[2022-10-17] MEDS: ONDANSETRON 4 MG/2 ML VIAL IV PRN ×2 (04:50→18:12)
[2022-10-17 05:25] LABS: Absolute Lymphocytes (CBC) 1.1 K/uL (0.7-4.9); Hematocrit 38.2 % (39.6-49.0); MPV 10.8 fL (7.6-11.3); Platelets 321 thou/uL (152-406); RBC Red Blood Cell Count 4.06 M/uL (4.33-5.43)
[2022-10-17 05:36] LABS: Albumin 2.1 g/dL (3.4-5.0); Bilirubin Total 0.5 mg/dL (0.2-1.0); Potassium 3.6 mEq/L (3.5-5.1); Protein, Total 6.1 g/dL (6.4-8.2)
[2022-10-17] MEDS ORDERED: POTASSIUM CL SA 10 MEQ TAB PO ONE (09:00)
[2022-10-17] MEDS: NA CHLORIDE 0.9% 1,000 ML IV SCH (09:40)
[2022-10-17] MEDS: PANTOPRAZOLE 40 MG INJ IVP SCH ×2 (09:41→21:22)
--- NOTE | 2022-10-17 09:42 | P.PN ---
Date of Service: 10/17/22 Chief Complaint: Abdominal pain. Subjective: Patient seen and examined in room. Partner at bedside. Patient reports nausea after receiving oral potassium replacement this morning. He also reports developing some nausea/vomiting while NGT clamped yesterday. Physical Examination Temp Pulse Resp BP Pulse Ox 97.9 F 70 16 139/78 98 10/17/22 08:00 10/17/22 08:00 10/17/22 08:00 10/17/22 08:00 10/17/22 08:00 General: Alert, Oriented x3. HEENT: Atraumatic, Normocephalic Neck: Supple, JVD not distended Respiratory: Normal air movement. clear to auscultation. Cardiovascular: No edema, Normal pulses. Gastrointestinal: hypoactive bowel sounds. Colostomy with gas noted in bag. NG tube clamped. Musculoskeletal: No clubbing. Moves all extremities. Integumentary: Abdominal surgical site with wound vac in place. Abdominal SHAMIR drain with serosanguineous output. Neurological: Normal speech. Normal tone. Normal affect. Laboratory Data - Reviewed Microbiology Data - Blood cultures 10/04: no growth 24 hours - Stool culture 10/06: No salmonella, shigella or campylobacter isolated - IntraAbdominal abscess culture 10/07: No growth to date - Abdominal drainage culture 10/12: No growth to date Imagings Data: - Reviewed Medications list: - Reviewed Assessment and Plan Problem List Intra-abdominal abscess Perforated Diverticulitis History of diverticulitis Intra-abdominal abscess - 10/04 CT abdomen pelvis w contrast: " In the left lower quadrant of the abdomen, there is moderate inflammation and thickening of small bowel loops with mild bowel distention and inflamed fat. There is a interloop abscess present measuring 4-5 cm. This may be related to inflammatory bowel disease or infection." - Patient wished to hold off on surgery at the time and continue IV antibiotic Zosyn. - Due to no improvement in symptoms / worsening, repeat CT abdomen obtained 10/07. - CT abdomen pelvis 10/07: "Progressive collections containing air-fluid levels throughout the abdomen, with increasing edema throughout the mesentery and new trace layering fluid along the paracolic gutters. Findings raise concern for an occult bowel perforation, that is not contained. Mildly progressive proximal small bowel fluid filling with short-segment air-fluid levels, suggestive of ileus. " - s/p exploratory laparotomy on 10/07 with creation end colostomy, drainage of intra-abdominal abscess, lysis of adhesions and partial omentectomy by Dr. Zavala. - Intra abdominal abscess culture 10/07: No growth to date - Abdominal drainage culture 10/12: No growth to date - XR KUB 10/12: "Nasogastric tube within the mid stomach. Stomach is mildly dilated. Mild dilatation of multiple small bowel loops with diminished air in the colon could represent a partial obstruction or adynamic ileus. Surgical drains in place. " - CT abdomen pelvis 10/13: " No abscess is seen." - Previously on Zosyn (10/04-10/12) which was switched to Meropenem on 10/12 due to worsening leukocytosis. - Leukocytosis improving (WBC 11.9). Afebrile. Recommendations - Started on Meropenem 10/12, continue for now. - Monitor WBC and fever trends - Abdominal surgical site wound care per Dr. Zavala - Abdominal binder. Out of bed as tolerated. - Encourage incentive spirometry - Pain management per primary team - physical therapy Case discussed with Alfred Mckeon
--- NOTE | 2022-10-17 13:41 | P.PN ---
Subjective Date of Service: 10/17/22 Chief Complaint: intrabdominal abscess, perforated diverticuitis, exp lap, colostomy Subjective: Improving (pt had nausea last night after taking potassium pills other cheung better) Review of Systems General: Unremarkable Respiratory: Unremarkable Cardiovascular: Unremarkable Gastrointestinal: Other (gas on bag) Genitourinary: Unremarkable Physical Examination - Vital Signs Temperature: 97.9 F Blood Pressure: 133/73 Pulse: 73 Respirations: 16 Pulse Ox (%): 98 - Physical Exam General: Alert, In no apparent distress, Oriented x3, Cooperative HEENT: PERRLA, EOMI Neck: Supple Respiratory: Normal air movement Gastrointestinal: Soft and benign, No rebound, No guarding Integumentary: Other (intact surgical site) Neurological: Normal speech Assessment And Plan - Plan OOB IS wound VAC ID for abx ambulate PPN clamp NGT , liquid trials Physician Review: Patient Assessed, Agree with Above Assessment and Plan
--- NOTE | 2022-10-17 14:51 | P.PN ---
Subjective Date of Service: 10/17/22 Chief Complaint: intrabdominal abscess, perforated diverticuitis, exp lap, colostomy Patient no vomiting today. Patient reports episode of nausea last night. NG tube was hooked to suction briefly last night. No recorded fever. Patient states that he been passing flatus. He had stool output from colostomy bag. Physical Examination - Vital Signs Temperature: 97.9 F Blood Pressure: 133/73 Pulse: 73 Respirations: 16 Pulse Ox (%): 98 Assessment And Plan - Plan Physical Exam: GEN: Alert, oriented, NAD HEENT: Normal conjunctiva, sclera anicteric CV: Regular rate and rhythm, no edema Pulm: Clear to auscultation, adequate breath sounds. ABD: No distention, colostomy with minimal dark output, b/l SHAMIR drains in place, hypoactive bowel sounds. Neuro: Normal speech, normal affect NGT in place vitals reviewed Diagnosis Perforated Diverticulitis with Intra-abdominal abscess, now s/p ex lap, colostomy, I&D of intra-abdominal abscess, partial omentectomy (10/07) Intractable hiccups CKD 2 Diarrhea Class II obesity h/o diverticulitis, >5-6 episodes Perforated Diverticulitis with Intra-abdominal abscess, now s/p ex lap, colostomy, I&D of intra-abdominal abscess, partial omentectomy (10/07) Intractable hiccups CTabdomen (10/04): mod inflammation and thickening of small bowel loops with mild bowel distention and inflamed fat in LLQ. interloop abscess present measuring 4- [address] abdomen (10/07): occult bowel perforation, that is not contained blood cx: NGTD wound cx: No growth. General surgery and ID are following. s/p ex lap, colostomy, I&D of intra-abdominal abscess, partial omentectomy (10/07) [address] NG tube removed 10/11 and reinserted on 10/12. Repeat CT abdomen and pelvis 10/13 shows no intra-abdominal abscess. IV Zosyn changed to IV meropenem. Continue IV meropenem. NG tube rehooked to suction 10/15. Leukocytosis significantly improved and almost resolved. Clamp NG tube and full liquid diet today per Dr. Zavala Infectious disease is following on TPN via PICC Continue protonix Continue PT. He has been experiencing intermittent hiccups. Reglan as needed. Increase activity as tolerated. Transaminitis Unclear significance. Liver noted to be prominent in size according to CT LFTs has been trending down. THERESA Resolved. monitor renal function VTE: SCD Code: Full Dispo: Home.
--- NOTE | 2022-10-17 15:11 | RAD REPORT ---
EXAM DESCRIPTION: RAD - Abdomen 1 View (KUB) - 10/17/2022 1:53 pm CLINICAL HISTORY: NG tube position COMPARISON: Abdomen 1 View (KUB) dated 10/16/2022; Abdomen 1 View (KUB) dated 10/12/2022; Abdomen 1 Vie w (KUB) dated 10/06/2022; Abdomen 1 View (KUB) dated 07/16/2020 TECHNIQUE: Single AP view of the abdomen. FINDINGS: Enteric tube tip projects over the distal esophagus. Elevation of the right hemidiaphragm. Right arm PICC unchanged in position. Nonobstructive bowel gas pattern. No air-fluid levels, free air, or pneumatosis. No suspicious calcif ications. No significant bony abnormality. IMPRESSION: Enteric tube tip projects over the distal esophagus, and should be advanced.
[2022-10-17] MEDS: MULTIVITAMINS IV SCH ×3 (18:03)
[2022-10-17] MEDS: AMINO ACIDS IV SCH ×3 (18:03)
[2022-10-17] MEDS: LIPIDS 20% IV SCH ×3 (18:03)
[2022-10-17] MEDS: DEXTROSE 20% IV SCH ×3 (18:03)
[2022-10-17] MEDS: ENOXAPARIN 40 MG/0.4 ML SQ SCH (18:03)
[2022-10-18] MEDS: Meropenem 1,000 MG in NA CHLORIDE 0.9% 100 ML IV SCH ×3 (00:36→17:47)
[2022-10-18 03:42] LABS: Absolute Lymphocytes (CBC) 1.1 K/uL (0.7-4.9); Hematocrit 38.9 % (39.6-49.0); Lymphocytes % 10.3 % (15.3-44.8); MCV 93.6 fL (80-100); MPV 10.3 fL (7.6-11.3); Platelets 331 thou/uL (152-406); RBC Red Blood Cell Count 4.16 M/uL (4.33-5.43)
[2022-10-18 04:04] LABS: Potassium 3.4 mEq/L (3.5-5.1)
[2022-10-18] MEDS: NA CHLORIDE 0.9% 1,000 ML IV SCH ×2 (04:32→23:56)
[2022-10-18] MEDS: HYDROMORPHONE HCL 1 MG/ML INJ IV PRN ×5 (04:33→23:57)
[2022-10-18] MEDS ORDERED: POTASSIUM CL SA 10 MEQ TAB PO ONE ×2 (06:00→09:00)
--- NOTE | 2022-10-18 06:56 | P.PN ---
Date of Service: 10/18/22 Subjective: Feeling better today no new / worsening problems abdominal pain improving voiding without issues Hiccups continues, occurring more intermittently (overall improving) ROS: 10 point ROS as noted above, otherwise negative Physical Exam: GEN: Alert, oriented, NAD HEENT: Normal conjunctiva, sclera anicteric CV: Regular rate and rhythm, no edema Pulm: Nonlabored respirations on room air, diminished slightly at bases ABD: colostomy with minimal dark output, b/l SHAMIR drains in place, hypoactive bowel sounds.; wound vac in place Neuro: Normal speech, normal affect Wound vac in place vitals reviewed Problem List: Perforated Diverticulitis with Intra-abdominal abscess, now s/p ex lap, colostomy, I&D of intra-abdominal abscess, partial omentectomy (10/07) Intractable hiccups CKD 2 Diarrhea Class II obesity h/o diverticulitis, >5-6 episodes Perforated Diverticulitis with Intra-abdominal abscess, now s/p ex lap, colostomy, I&D of intra-abdominal abscess, partial omentectomy (10/07) Intractable hiccups CT abdomen (10/04): mod inflammation and thickening of small bowel loops with mild bowel distention and inflamed fat in LLQ. interloop abscess present measuring 4-[address] abdomen (10/07): occult bowel perforation, that is not contained CT abdomen (10/13): no abscess seen blood cx: No growth wound cx: No growth General surgery and ID Consulted s/p ex lap, colostomy, I&D of intra-abdominal abscess, partial omentectomy (10/07) NGT removed 10/11 and reinserted on 10/12. NGT rehooked to suction 10/15, removed 10/18 zosyn (10/04-10/12) switched to merrem d/t worsening leukocytosis continue Merrem (10/12-) afebrile, +leukocytosis resolved after merrem started Full liquids continue protonix Continue TPN PT consult Continue reglan for hiccups diet as tolerated / per surgery CKD 2 monitor renal function improving / stable Diarrhea Continue enteric precautions. VTE: Lovenox Code: Full Dispo: Home with home health, ~2 days
--- NOTE | 2022-10-18 08:13 | P.PN ---
Date of Service: 10/18/22 Chief Complaint: Abdominal pain. Subjective: Patient seen and examined at bedside. Reports feeling better today. + abdominal tenderness No nausea or vomiting. Physical Examination Temp Pulse Resp BP Pulse Ox 98.3 F 77 16 134/75 96 10/18/22 04:00 10/18/22 04:00 10/18/22 05:03 10/18/22 04:00 10/18/22 05:03 General: Alert, Oriented x3. In no apparent distress. HEENT: Atraumatic, Normocephalic Neck: Supple, JVD not distended Respiratory: Normal air movement. clear to auscultation bilaterally. On room air. Cardiovascular: No edema, Normal pulses. Gastrointestinal: hypoactive bowel sounds. Colostomy with gas noted in bag. NG tube clamped. Musculoskeletal: No clubbing. Moves all extremities. Integumentary: Abdominal surgical site with wound vac in place. Neurological: Normal speech. Normal tone. Normal affect. Laboratory Data - Reviewed Microbiology Data - Blood cultures 10/04: no growth 24 hours - Stool culture 10/06: No salmonella, shigella or campylobacter isolated - IntraAbdominal abscess culture 10/07: No growth to date - Abdominal drainage culture 10/12: No growth to date Imagings Data: - Reviewed Medications list: - Reviewed Assessment and Plan Problem List Intra-abdominal abscess Perforated Diverticulitis Hx of diverticulitis Intra-abdominal abscess - 10/04 CT abdomen pelvis w contrast: " In the left lower quadrant of the abdomen, there is moderate inflammation and thickening of small bowel loops with mild bowel distention and inflamed fat. There is a interloop abscess present measuring 4-5 cm. This may be related to inflammatory bowel disease or infection." - Patient wished to hold off on surgery at the time and continue IV antibiotic Zosyn. - Due to no improvement in symptoms / worsening, repeat CT abdomen obtained 10/07. - CT abdomen pelvis 10/07: "Progressive collections containing air-fluid levels throughout the abdomen, with increasing edema throughout the mesentery and new trace layering fluid along the paracolic gutters. Findings raise concern for an occult bowel perforation, that is not contained. Mildly progressive proximal small bowel fluid filling with short-segment air-fluid levels, suggestive of ileus. " - s/p exploratory laparotomy on 10/07 with creation end colostomy, drainage of intra-abdominal abscess, lysis of adhesions and partial omentectomy by Dr. Zavala. - Intra abdominal abscess culture 10/07: No growth to date - Abdominal drainage culture 10/12: No growth to date - XR KUB 10/12: "Nasogastric tube within the mid stomach. Stomach is mildly dilated. Mild dilatation of multiple small bowel loops with diminished air in the colon could represent a partial obstruction or adynamic ileus. Surgical drains in place. " - CT abdomen pelvis 10/13: " No abscess is seen." - Previously on Zosyn (10/04-10/12) which was switched to Meropenem on 10/12 due to worsening leukocytosis. - Afebrile. - Leukocytosis improving (WBC now 10.4) Recommendations - Started on Meropenem 10/12, continue for now. Will reevaluate tomorrow and consider discontinuation of antibiotic. - Monitor WBC and fever trends - Abdominal surgical site wound care per Dr. Zavala - Abdominal binder. Out of bed as tolerated. Physical therapy. - Encourage incentive spirometry - Pain management per primary team Case discussed with Alfred Mckeon
[2022-10-18] MEDS: PANTOPRAZOLE 40 MG INJ IVP SCH ×2 (08:55→20:19)
[2022-10-18] MEDS: AMINO ACIDS 5 %/DEXTROSE 20 % 2,000 ML IV SCH (17:47)
[2022-10-18] MEDS: ENOXAPARIN 40 MG/0.4 ML SQ SCH (17:47)
[2022-10-19] MEDS: Meropenem 1,000 MG in NA CHLORIDE 0.9% 100 ML IV SCH ×2 (05:25→08:29)
[2022-10-19] MEDS: HYDROMORPHONE HCL 1 MG/ML INJ IV PRN ×7 (05:30→23:59)
[2022-10-19 06:58] LABS: Absolute Lymphocytes (CBC) 0.9 K/uL (0.7-4.9); Hematocrit 38.1 % (39.6-49.0); Lymphocytes % 10.8 % (15.3-44.8); MCV 93.5 fL (80-100); MPV 10.9 fL (7.6-11.3); Platelets 308 thou/uL (152-406); RBC Red Blood Cell Count 4.07 M/uL (4.33-5.43)
--- NOTE | 2022-10-19 07:08 | P.PN ---
Date of Service: 10/19/22 Subjective: Abdominal pain shifted to the right side now since last night colostomy with minimal dark brown output, +gas tolerating liquids otherwise no new / worsening problems ROS: 10 point ROS as noted above, otherwise negative Physical Exam: GEN: Alert, oriented, NAD HEENT: Normal conjunctiva, sclera anicteric CV: Regular rate and rhythm, no edema Pulm: Nonlabored respirations on room air, diminished slightly at bases ABD: colostomy with minimal dark output, b/l SHAMIR drains in place, hypoactive bowel sounds; wound vac in place Neuro: Normal speech, normal affect Wound vac in place vitals reviewed Problem List: Perforated Diverticulitis with Intra-abdominal abscess, now s/p ex lap, colostomy, I&D of intra-abdominal abscess, partial omentectomy (10/07) Intractable hiccups CKD 2 Diarrhea Class II obesity h/o diverticulitis, >5-6 episodes Perforated Diverticulitis with Intra-abdominal abscess, now s/p ex lap, colostomy, I&D of intra-abdominal abscess, partial omentectomy (10/07) Intractable hiccups CT abdomen (10/04): mod inflammation and thickening of small bowel loops with mild bowel distention and inflamed fat in LLQ. interloop abscess present measuring 4-[address] abdomen (10/07): occult bowel perforation, that is not contained CT abdomen (10/13): no abscess seen blood cx: No growth wound cx: No growth General surgery and ID Consulted s/p ex lap, colostomy, I&D of intra-abdominal abscess, partial omentectomy (10/07) NGT removed 10/11 and reinserted on 10/12. NGT rehooked to suction 10/15, removed 10/18 zosyn (10/04-10/12) switched to merrem d/t worsening leukocytosis continue Merrem (10/12-) afebrile, +leukocytosis resolved after merrem started Full liquids - diet as tolerated / per surgery wean IV pain medications as tolerated continue protonix Continue TPN PT consult Continue reglan for hiccups CKD 2 monitor renal function improving / stable Diarrhea Continue enteric precautions. VTE: Lovenox Code: Full Dispo: Home with home health, ~2 days pending tolerating diet, further improvement, pain improved
[2022-10-19 07:14] LABS: Albumin 2.1 g/dL (3.4-5.0); Bilirubin Total 0.6 mg/dL (0.2-1.0); Magnesium 2.2 mg/dL (1.6-2.4); Potassium 3.6 mEq/L (3.5-5.1); Protein, Total 6.1 g/dL (6.4-8.2)
[2022-10-19] MEDS: PANTOPRAZOLE 40 MG INJ IVP SCH ×2 (08:30→20:54)
--- NOTE | 2022-10-19 08:56 | P.PN ---
Date of Service: 10/19/22 Chief Complaint: Abdominal pain. Subjective: Patient seen and examined at bedside. Reports RLQ abdominal discomfort/pressure described as constipated feeling. No acute events reported overnight. Physical Examination Temp Pulse Resp BP Pulse Ox 97.5 F 71 18 128/62 97 10/19/22 04:00 10/19/22 04:00 10/19/22 08:33 10/19/22 04:00 10/19/22 08:33 General: Alert, Oriented x3. In no apparent distress. HEENT: Atraumatic, Normocephalic Neck: Supple, JVD not distended Respiratory: Normal air movement. clear to auscultation bilaterally. On room air. Cardiovascular: No edema, Normal pulses. Gastrointestinal: hypoactive bowel sounds. Colostomy with gas noted in bag. NG tube clamped. Musculoskeletal: No clubbing. Moves all extremities. Integumentary: Abdominal surgical site with wound vac in place. Neurological: Normal speech. Normal tone. Normal affect. Studies Laboratory Data - Reviewed Microbiology Data - Blood cultures 10/04: no growth 24 hours - Stool culture 10/06: No salmonella, shigella or campylobacter isolated - IntraAbdominal abscess culture 10/07: No growth to date - Abdominal drainage culture 10/12: No growth to date Imagings Data: - Reviewed Medications list: - Reviewed Assessment and Plan Problem List Intra-abdominal abscess Perforated Diverticulitis Hx of diverticulitis Intra-abdominal abscess - 10/04 CT abdomen pelvis w contrast: " In the left lower quadrant of the abdomen, there is moderate inflammation and thickening of small bowel loops with mild bowel distention and inflamed fat. There is a interloop abscess present measuring 4-5 cm. This may be related to inflammatory bowel disease or infection." - Patient wished to hold off on surgery at the time and continue IV antibiotic Zosyn. - Due to no improvement in symptoms / worsening, repeat CT abdomen obtained 10/07. - CT abdomen pelvis 10/07: "Progressive collections containing air-fluid levels throughout the abdomen, with increasing edema throughout the mesentery and new trace layering fluid along the paracolic gutters. Findings raise concern for an occult bowel perforation, that is not contained. Mildly progressive proximal small bowel fluid filling with short-segment air-fluid levels, suggestive of ileus. " - s/p exploratory laparotomy on 10/07 with creation end colostomy, drainage of intra-abdominal abscess, lysis of adhesions and partial omentectomy by Dr. Zavala. - Intra abdominal abscess culture 10/07: No growth to date - Abdominal drainage culture 10/12: No growth to date - XR KUB 10/12: "Nasogastric tube within the mid stomach. Stomach is mildly dilated. Mild dilatation of multiple small bowel loops with diminished air in the colon could represent a partial obstruction or adynamic ileus. Surgical drains in place. " - CT abdomen pelvis 10/13: " No abscess is seen." - Previously on Zosyn (10/04-10/12) which was switched to Meropenem on 10/12 due to worsening leukocytosis. - Afebrile. - Leukocytosis resolved (WBC 8.7) NGT removed 10/18 minimal output from colostomy Recommendations - Leukocytosis improved. Will discontinue meropenem and continue to monitor patient for worsening s/s of infection. - Monitor WBC and fever trends - Abdominal surgical site wound care per Dr. Zavala - Abdominal binder. Out of bed as tolerated. Physical therapy. - Pain management per primary team Case discussed with Alfred Mckeon
[2022-10-19] MEDS: ENOXAPARIN 40 MG/0.4 ML SQ SCH (16:52)
[2022-10-19] MEDS: LIPIDS 20% IV SCH ×3 (17:50)
[2022-10-19] MEDS: DEXTROSE 20% IV SCH ×3 (17:50)
[2022-10-19] MEDS: MULTIVITAMINS IV SCH ×3 (17:50)
[2022-10-19] MEDS: AMINO ACIDS IV SCH ×3 (17:50)
--- NOTE | 2022-10-19 20:02 | PN ---
Date of Progress Note: 10/19/2022 Diagnosis: Perforated diverticulitis with intra-abdominal abscess. Subjective: Doing better, starting to tolerate full liquid diet today. No nausea, no vomiting. No shortness of breath. No chest pain. No fever. Review of Systems: 10 points otherwise unremarkable. Physical Examination: Chest: Clear. Abdomen: Soft and depressible. Intact surgical site. Wound VAC in place. Ostomy viable and functi onal. Extremities: Good capillary refill. Plan: We are going to advance diet to soft diet. Whenever we have that, we plan to discharge home w ith the wound VAC and [facility]. ARA/ASHUTOSH Voice ID: [id number] Report ID: [id number]
[2022-10-20] MEDS: HYDROMORPHONE HCL 1 MG/ML INJ IV PRN ×3 (04:16→11:57)
--- NOTE | 2022-10-20 07:17 | P.PN ---
Date of Service: 10/20/22 Subjective: Feels improvement each day not needing as frequent pain medication right abdominal/flank pain improving; +tolerating diet no new / worsening problems afebrile ROS: 10 point ROS as noted above, otherwise negative Physical Exam: GEN: Alert, oriented, NAD HEENT: Normal conjunctiva, sclera anicteric CV: Regular rate and rhythm, no edema Pulm: Nonlabored respirations on room air, diminished slightly at bases ABD: colostomy with minimal dark output, b/l SHAMIR drains in place, hypoactive bowel sounds; wound vac in place Neuro: Normal speech, normal affect Wound vac in place vitals reviewed Problem List: Perforated Diverticulitis with Intra-abdominal abscess, now s/p ex lap, colostomy, I&D of intra-abdominal abscess, partial omentectomy (10/07) Intractable hiccups CKD 2 Diarrhea Class II obesity h/o diverticulitis, >5-6 episodes Perforated Diverticulitis with Intra-abdominal abscess, now s/p ex lap, colostomy, I&D of intra-abdominal abscess, partial omentectomy (10/07) Intractable hiccups CT abdomen (10/04): mod inflammation and thickening of small bowel loops with mild bowel distention and inflamed fat in LLQ. interloop abscess present measuring 4-[address] abdomen (10/07): occult bowel perforation, that is not contained CT abdomen (10/13): no abscess seen blood cx: No growth wound cx: No growth General surgery and ID Consulted s/p ex lap, colostomy, I&D of intra-abdominal abscess, partial omentectomy (10/07) NGT removed 10/11 and reinserted on 10/12. NGT rehooked to suction 10/15, removed 10/18 zosyn (10/04-10/12) switched to merrem d/t worsening leukocytosis Merrem dc'd (10/12-10/20) afebrile, +leukocytosis resolved started cipro/flagyl 10/20 per surgery recs GI soft / low fiber - diet as tolerated / per surgery dc TPN 10/20 PRN pain medication continue protonix Continue TPN PT consult ss/cm consulted for colostomy supplies CKD 2 monitor renal function improving / stable Diarrhea Continue enteric precautions. VTE: Lovenox Code: Full Dispo: Home with home health, ~1 day pending tolerating diet, further improvement, pain improved
[2022-10-20] MEDS: PANTOPRAZOLE 40 MG INJ IVP SCH ×2 (08:37→20:33)
--- NOTE | 2022-10-20 08:49 | P.PN ---
Date of Service: 10/20/22 Chief Complaint: Abdominal pain. Subjective: Patient seen and examined at bedside. Improving. Tolerated breakfast. No new or worsening complaints. Physical Examination Temp Pulse Resp BP Pulse Ox 97.6 F 74 18 131/77 96 10/20/22 04:00 10/20/22 04:00 10/20/22 07:09 10/20/22 04:00 10/20/22 07:09 General: Alert, Oriented x3. In no apparent distress. HEENT: Atraumatic, Normocephalic Neck: Supple, JVD not distended Respiratory: Normal air movement. clear to auscultation bilaterally. On room air. Cardiovascular: No edema, Normal pulses. Gastrointestinal: hypoactive bowel sounds. Colostomy minimal output. Musculoskeletal: No clubbing. Moves all extremities. Integumentary: Abdominal surgical site with wound vac in place. abdominal SHAMIR drain x2 with serous output. Neurological: Normal speech. Normal tone. Normal affect. Studies Laboratory Data - Reviewed Microbiology Data - Blood cultures 10/04: no growth 24 hours - Stool culture 10/06: No salmonella, shigella or campylobacter isolated - IntraAbdominal abscess culture 10/07: No growth to date - Abdominal drainage culture 10/12: No growth to date Imagings Data: - Reviewed Medications list: - Reviewed Assessment and Plan Problem List Intra-abdominal abscess Perforated Diverticulitis Hx of diverticulitis Intra-abdominal abscess - 10/04 CT abdomen pelvis w contrast: " In the left lower quadrant of the abdomen, there is moderate inflammation and thickening of small bowel loops with mild bowel distention and inflamed fat. There is a interloop abscess present measuring 4-5 cm. This may be related to inflammatory bowel disease or infection." - Patient wished to hold off on surgery at the time and continue IV antibiotic Zosyn. - Due to no improvement in symptoms / worsening, repeat CT abdomen obtained 10/07. - CT abdomen pelvis 10/07: "Progressive collections containing air-fluid levels throughout the abdomen, with increasing edema throughout the mesentery and new trace layering fluid along the paracolic gutters. Findings raise concern for an occult bowel perforation, that is not contained. Mildly progressive proximal small bowel fluid filling with short-segment air-fluid levels, suggestive of ileus. " - s/p exploratory laparotomy on 10/07 with creation end colostomy, drainage of intra-abdominal abscess, lysis of adhesions and partial omentectomy by Dr. Zavala. - Intra abdominal abscess culture 10/07: No growth to date - Abdominal drainage culture 10/12: No growth to date - XR KUB 10/12: "Nasogastric tube within the mid stomach. Stomach is mildly dilated. Mild dilatation of multiple small bowel loops with diminished air in the colon could represent a partial obstruction or adynamic ileus. Surgical drains in place. " - CT abdomen pelvis 10/13: " No abscess is seen." - Previously on Zosyn (10/04-10/12) which was switched to Meropenem on 10/12 due to worsening leukocytosis. - On meropenem from 10/12 to 10/19 - Afebrile. - Leukocytosis resolved Recommendations - Meropenem discontinued 10/19. Continue to monitor patient for worsening s/s of infection. - Spoke with Dr. Zavala who wishes to continue antibiotics upon discharge, transition to oral. Consider start on Ciprofloxacin PO and Flagyl PO - Monitor WBC and fever trends - Abdominal surgical site wound care per Dr. Zavala. Continue wound vac. - Abdominal binder. Out of bed as tolerated. Physical therapy. - Pain management per primary team Case discussed with Alfred Mckeon
[2022-10-20 09:56] LABS: Hematocrit 41.6 % (39.6-49.0); Lymphocytes % 12.6 % (15.3-44.8); MCV 93.7 fL (80-100); MPV 10.8 fL (7.6-11.3); Platelets 321 thou/uL (152-406); RBC Red Blood Cell Count 4.44 M/uL (4.33-5.43)
[2022-10-20 10:12] LABS: Albumin 2.5 g/dL (3.4-5.0); Bilirubin Total 0.5 mg/dL (0.2-1.0); Magnesium 2.1 mg/dL (1.6-2.4); Potassium 3.5 mEq/L (3.5-5.1)
[2022-10-20] MEDS: HYDROCODONE/APAP 5/325 MG TAB PO PRN ×2 (14:35→20:32)
[2022-10-20] MEDS: ENOXAPARIN 40 MG/0.4 ML SQ SCH (16:25)
[2022-10-20] MEDS: CIPROFLOXACIN HCL 500 MG TAB PO SCH (22:00)
[2022-10-20] MEDS ORDERED: CIPROFLOXACIN HCL 250 MG TAB ONE (22:30)
[2022-10-21] MEDS: metroNIDAZOLE 500 MG TABLET PO SCH ×5 (00:56→23:39)
[2022-10-21] MEDS: HYDROCODONE/APAP 5/325 MG TAB PO PRN ×2 (04:44→23:39)
--- NOTE | 2022-10-21 06:56 | P.PN ---
Date of Service: 10/21/22 Subjective: Feeling better today right abdominal/flank pain improving - +less tender to touch no acute events overnight; +afebrile tolerating diet ROS: 10 point ROS as noted above, otherwise negative Physical Exam: GEN: Alert, oriented, NAD HEENT: Normal conjunctiva, sclera anicteric CV: Regular rate and rhythm, no edema Pulm: Nonlabored respirations on room air, diminished slightly at bases ABD: colostomy with minimal dark output, b/l SHAMIR drains in place, wound vac in place Neuro: Normal speech, normal affect Wound vac in place vitals reviewed Problem List: Perforated Diverticulitis with Intra-abdominal abscess, now s/p ex lap, colostomy, I&D of intra-abdominal abscess, partial omentectomy (10/07) Intractable hiccups, resolved CKD 2 Diarrhea, resolved Class II obesity h/o diverticulitis, >5-6 episodes Perforated Diverticulitis with Intra-abdominal abscess, now s/p ex lap, colostomy, I&D of intra-abdominal abscess, partial omentectomy (10/07) Intractable hiccups CT abdomen (10/04): mod inflammation and thickening of small bowel loops with mild bowel distention and inflamed fat in LLQ. interloop abscess present measuring 4-[address] abdomen (10/07): occult bowel perforation, that is not contained CT abdomen (10/13): no abscess seen blood cx: No growth wound cx: No growth General surgery and ID Consulted s/p ex lap, colostomy, I&D of intra-abdominal abscess, partial omentectomy (10/07) NGT last removed 10/18 zosyn (10/04-10/12) switched to merrem d/t worsening leukocytosis Merrem dc'd (10/12-10/20) switched to continue PO cipro/flagyl (10/20-) per surgery recs afebrile, +leukocytosis resolved GI soft / low fiber - diet as tolerated / per surgery TPN dc'd 10/20 PRN pain medication continue protonix PT consult ss/cm consulted for colostomy supplies CKD 2 monitor renal function improving / stable Diarrhea Continue enteric precautions. VTE: Lovenox Code: Full Dispo: Home with home health, clinically improved; DC pending colostomy supplies / home health set up, etc
[2022-10-21 07:01] LABS: Absolute Lymphocytes (CBC) 0.9 K/uL (0.7-4.9); Hematocrit 39.8 % (39.6-49.0); Lymphocytes % 10.7 % (15.3-44.8); MCV 93.4 fL (80-100); MPV 11.2 fL (7.6-11.3); Platelets 288 thou/uL (152-406); RBC Red Blood Cell Count 4.26 M/uL (4.33-5.43)
[2022-10-21 07:13] LABS: Albumin 2.5 g/dL (3.4-5.0); Phosphorus 2.8 mg/dL (2.5-4.9); Potassium 3.9 mEq/L (3.5-5.1)
[2022-10-21] MEDS ORDERED: POTASSIUM CL SA 10 MEQ TAB PO ONE (07:29)
--- NOTE | 2022-10-21 08:38 | P.PN ---
Date of Service: 10/21/22 Chief Complaint: Abdominal pain. Subjective: Seen and examined at bedside. Patient sitting up in bed, finished breakfast. In no apparent distress, breathing comfortably on room air. He denies any new or worsening complaints. Reports good appetite. No nausea, vomiting or abdominal pain. Physical Examination Temp Pulse Resp BP Pulse Ox 97.0 F 73 18 140/74 97 10/21/22 04:00 10/21/22 04:00 10/21/22 04:00 10/21/22 04:00 10/21/22 04:00 General: Alert, Oriented x3. In no apparent distress. HEENT: Atraumatic, Normocephalic Neck: Supple, JVD not distended Respiratory: Normal air movement. clear to auscultation bilaterally. On room air. Cardiovascular: No edema, Normal pulses. Gastrointestinal: hypoactive bowel sounds. Colostomy with minimal output. Musculoskeletal: No clubbing. Moves all extremities. Integumentary: Abdominal surgical site with wound vac in place. Abdominal SHAMIR drain x2 with serous output. Neurological: Normal speech. Normal tone. Normal affect. Studies Laboratory Data - Reviewed Microbiology Data - Blood cultures 10/04: no growth 24 hours - Stool culture 10/06: No salmonella, shigella or campylobacter isolated - IntraAbdominal abscess culture 10/07: No growth to date - Abdominal drainage culture 10/12: No growth to date Imagings Data: - Reviewed Medications list: - Reviewed Assessment and Plan Problem List Intra-abdominal abscess Perforated Diverticulitis Hx of diverticulitis Intra-abdominal abscess - 10/04 CT abdomen pelvis w contrast: " In the left lower quadrant of the abdomen, there is moderate inflammation and thickening of small bowel loops with mild bowel distention and inflamed fat. There is a interloop abscess present measuring 4-5 cm. This may be related to inflammatory bowel disease or infection." - Patient wished to hold off on surgery at the time and continue IV antibiotic Zosyn. - Due to no improvement in symptoms / worsening, repeat CT abdomen obtained 10/07. - CT abdomen pelvis 10/07: "Progressive collections containing air-fluid levels throughout the abdomen, with increasing edema throughout the mesentery and new trace layering fluid along the paracolic gutters. Findings raise concern for an occult bowel perforation, that is not contained. Mildly progressive proximal small bowel fluid filling with short-segment air-fluid levels, suggestive of ileus. " - s/p exploratory laparotomy on 10/07 with creation end colostomy, drainage of intra-abdominal abscess, lysis of adhesions and partial omentectomy by Dr. Zavala. - Intra abdominal abscess culture 10/07: No growth to date - Abdominal drainage culture 10/12: No growth to date - XR KUB 10/12: "Nasogastric tube within the mid stomach. Stomach is mildly dilated. Mild dilatation of multiple small bowel loops with diminished air in the colon could represent a partial obstruction or adynamic ileus. Surgical drains in place. " - CT abdomen pelvis 10/13: " No abscess is seen." - Previously on Zosyn (10/04-10/12) which was switched to Meropenem on 10/12 due to worsening leukocytosis. - On Meropenem from 10/12 to 10/19. - Transitioned to oral antibiotics Ciprofloxacin and Flagyl PO on 10/20 - Leukocytosis resolved. Afebrile. Recommendations - Transitioned to oral antibiotic prior to discharge - Ciprofloxacin and Flagyl (10/20-), continue for 7-10 days. - Continue to monitor for worsening signs/symptoms of infection and WBC and fever trends. - Abdominal surgical site wound care per Dr. Zavala. Continue wound vac. - Abdominal binder. Out of bed as tolerated. Physical therapy. Pending home wound vac / home health arrangements. Follow up with Dr. Zavala as outpatient. Case discussed with Alfred Mckeon
[2022-10-21] MEDS: CIPROFLOXACIN HCL 500 MG TAB PO SCH ×2 (08:59→20:30)
[2022-10-21] MEDS: PANTOPRAZOLE 40 MG INJ IVP SCH ×2 (08:59→20:29)
--- NOTE | 2022-10-21 14:13 | P.DS ---
Admission Date: 10/04/22 Discharge Date: 10/22/22 Reason for Admission: intrabdominal abscess, perforated diverticuitis, exp lap, colostomy Consultations: TENTATIVE DC pending colostomy supplies / HH setup General Surgery - Dr. Zavala Infectious Disease - Dr. Lu Brief History of Present Illness: 51yo M, PMH: diverticulitis, obesity Patient presents with complaint of lower quadrants pain onset yesterday. Patient rated pain as 10/10 in severity and described pain as sharp\stabbing pain in quality. Patient reported associated signs and symptoms of nausea, fever, diarrhea, chills, poor appetite and generalized malaise. Patient reported that he has had 3 episodes of diarrhea today. Patient denies any other signs and symptoms. Symptoms are aggravated or relieved by nothing. Hospital Course: Problem List: Perforated Diverticulitis with Intra-abdominal abscess, now s/p ex lap, colostomy, I&D of intra-abdominal abscess, partial omentectomy (10/07) Intractable hiccups, resolved CKD 2 Class II obesity h/o diverticulitis, >5-6 episodes Physical Exam: GEN: Alert, oriented, NAD HEENT: Normal conjunctiva, sclera anicteric CV: Regular rate and rhythm, no edema Pulm: Nonlabored respirations on room air, diminished slightly at bases ABD: colostomy with minimal dark output, b/l SHAMIR drains in place, hypoactive bowel sounds; wound vac in place Neuro: Normal speech, normal affect Vital Signs/Physical Exam: Temp Pulse Resp BP Pulse Ox 97.3 F 73 18 131/77 94 10/21/22 10:57 10/21/22 10:57 10/21/22 10:57 10/21/22 10:57 10/21/22 10:57 Laboratory Data at Discharge: WBC 8.50 thou/uL (4.3-10.9) 10/21/22 06:30 Hgb 13.6 g/dL (13.6-17.9) 10/21/22 06:30 Hct 39.8 % (39.6-49.0) 10/21/22 06:30 Plt Count 288 thou/uL (152-406) 10/21/22 06:30 PT 18.1 SECONDS (9.5-12.5) H 10/05/22 03:03 INR 1.65 10/05/22 03:03 APTT 33.2 SECONDS (24.3-36.9) 10/04/22 13:12 Sodium 134 mEq/L (136-145) L 10/21/22 06:30 Potassium Cancelled 10/21/22 Unknown BUN 15 mg/dL (7-18) 10/21/22 06:30 Creatinine 1.01 mg/dL (0.70-1.30) 10/21/22 06:30 Glucose 140 mg/dL (74-106) H 10/21/22 06:30 Phosphorus 2.8 mg/dL (2.5-4.9) 10/21/22 06:30 Magnesium 2.1 mg/dL (1.6-2.4) 10/20/22 09:43 Total Bilirubin 0.5 mg/dL (0.2-1.0) 10/20/22 09:43 AST 18 U/L (15-37) 10/20/22 09:43 ALT 59 U/L (16-61) 10/20/22 09:43 Alkaline Phosphatase 143 U/L (45-117) H 10/20/22 09:43 Triglycerides 85 mg/dL (<150) 10/05/22 03:03 Cholesterol 94 mg/dL (<200) 10/05/22 03:03 HDL Cholesterol 27 mg/dL (40-60) L 10/05/22 03:03 Cholesterol/HDL Ratio 3.48 10/05/22 03:03 Home Medications: Ciprofloxacin HCl [Cipro 500 MG Tablet] 500 mg PO BID 12 Days #24 tab 07/16/20 Ondansetron [Zofran] 4 mg PO Q6H PRN 3 Days #10 tab 07/16/20 metroNIDAZOLE [Flagyl] 500 mg PO Q8H 12 Days #36 tablet 07/16/20 Albuterol Inhaler [Ventolin Inhaler*] 1 puff IH DAILY PRN 10/04/22 Physician Discharge Instructions: Patient presented with abdominal pain, fever, diarrhea. He was found to have perforated diverticulitis with intra-abdominal abscess first noted on CT abdo men. General surgery and ID were consulted. Patient underwent successful ex lap, colostomy, I&D of intra-abdominal abscess, partial omentectomy on 10/07/[address] Zavala. Initially given zosyn (10/04-10/12), abx were switched to merrem (10/12-10/20) d/t worsening leukocytosis. Antibiotics were eventually deescalated to PO cipro/flagyl (10/20-10/22) per surgery rec; however patient started to get nausea marilee on PO abx. Spoke with Dr. Zavala who was okay with stopping antibiotics. Patient completed ~18 days of total antibiotic treatment (~10 days since merrem started) Patients hospitalization was prolonged due to needing setup / needing colostomy supplies. On day of discharge patient was feeling better, abdominal pain improved, remained afebrile for > 48hours, and leukocytosis resolved. Medications: New: Protonix Follow up: PCP 3-[address] Zavala in the wound care clinic this coming Monday as previously discussed Followup: NONE,NONE [Primary Care Provider] - Time spent managing pt's care (in minutes): 45
[2022-10-21] MEDS: ENOXAPARIN 40 MG/0.4 ML SQ SCH (17:19)
--- NOTE | 2022-10-21 18:15 | PN ---
Date of Progress Note: 10/21/2022 Diagnoses: Ruptured diverticulitis with end-colostomy, emergent laparotomy, and drainage of intraabd ominal abscess. Subjective: Vital signs stable. Patient is doing great. Tolerating diet. Ostomy is functional. N o shortness of breath. No chest pain. No fever. No calf tenderness. Objective: Chest: Clear. Abdomen: Soft and depressible. Wound VAC in place. The ostomy bag is viable and functional. Extremities: Good capillary refill. Laboratory Data: Blood work reviewed. Plan: From the surgical standpoint, it is okay to be discharged home. [facility]. He will need Home Health to subsequently put a wound VAC on him, altho ugh the wound VAC we have right now, we are going to leave it on until Monday when we are going to s ee him at the [facility]. Sending him off with colostomy bag. The porter sample case are fuentes ng on trying to get supplies so when the time comes to change it, he has supplies with him. Otherwis e, he may have to do wet-to-dry. He has the option to also wait in the hospital until all this is ac complished, but he preferred to go home and wait for the supplies when he is at home. From our surgi osiel standpoint, we have no objection with that. We are going to follow also ID recommendations. We are going to give Cipro and Flagyl for few more days. He understands the need for no heavy lifting. ARA/ASHUTOSH Voice ID: [id number] Report ID: [id number]
[2022-10-22] MEDS: ONDANSETRON 4 MG/2 ML VIAL IV PRN (05:48)
[2022-10-22] MEDS: metroNIDAZOLE 500 MG TABLET PO SCH (05:48)
--- NOTE | 2022-10-22 07:09 | P.PN ---
Date of Service: 10/22/22 Subjective: feels nauseated after switching to PO abx; states this always happens with these antibiotics - combo or flagyl minimal appetite d/t nausea abdominal pain improving afebrile ROS: 10 point ROS as noted above, otherwise negative Physical Exam: GEN: Alert, oriented, tired, NAD HEENT: Normal conjunctiva, sclera anicteric CV: Regular rate and rhythm, no edema Pulm: Nonlabored respirations on room air, diminished slightly at bases ABD: colostomy with some small output, b/l SHAMIR drains in place, wound vac in place Neuro: Normal speech, normal affect Wound vac in place vitals reviewed Problem List: Perforated Diverticulitis with Intra-abdominal abscess, now s/p ex lap, colostomy, I&D of intra-abdominal abscess, partial omentectomy (10/07) Intractable hiccups, resolved CKD 2 Diarrhea, resolved Class II obesity h/o diverticulitis, >5-6 episodes Perforated Diverticulitis with Intra-abdominal abscess, now s/p ex lap, colostomy, I&D of intra-abdominal abscess, partial omentectomy (10/07) Intractable hiccups CT abdomen (10/04): mod inflammation and thickening of small bowel loops with mild bowel distention and inflamed fat in LLQ. interloop abscess present measuring 4-[address] abdomen (10/07): occult bowel perforation, that is not contained CT abdomen (10/13): no abscess seen blood cx: No growth wound cx: No growth General surgery and ID Consulted s/p ex lap, colostomy, I&D of intra-abdominal abscess, partial omentectomy (10/07) NGT last removed 10/18 previously on zosyn (10/04-10/12) switched to merrem d/t worsening leukocytosis Merrem (10/12-10/20) switched to PO cipro/flagyl (10/20-10/22), now dc'd d/t nausea stop abx given nausea on 10/22, will monitor off abx - discussed with Dr. Zavala afebrile, +leukocytosis resolved GI soft / low fiber - diet as tolerated / per surgery TPN dc'd 10/20 PRN pain medication continue protonix - switched to PO 10/22 PT consult ss/cm consulted for colostomy supplies CKD 2 monitor renal function improving / stable Diarrhea, resolved Continue enteric precautions. VTE: Lovenox Code: Full Dispo: Home with home health, DC pending colostomy supplies / home health set up, etc
[2022-10-22 07:36] LABS: Albumin 2.5 g/dL (3.4-5.0); Bilirubin Total 0.4 mg/dL (0.2-1.0); Phosphorus 3.4 mg/dL (2.5-4.9)
[2022-10-22 07:55] LABS: Magnesium 2.4 mg/dL (1.6-2.4)
[2022-10-22] MEDS: PANTOPRAZOLE 40MG TABLET PO SCH (09:32)
[2022-10-22] MEDS: CIPROFLOXACIN HCL 500 MG TAB PO SCH (09:33)
[2022-10-22] MEDS: ENOXAPARIN 40 MG/0.4 ML SQ SCH (16:16)
--- NOTE | 2022-10-22 21:23 | PN ---
Date of Progress Note: 10/22/2022 Subjective: The patient doing well. No complaint. No nausea, no vomiting. No fever. No shortness of breath. No chest pain. Objective: Chest: Clear. Abdomen: Soft and depressible. Laboratory Data: Blood work was reviewed. Plan: It is okay to discharge home from the surgical standpoint when he meets all the criteria from the medical management and the social management. We encouraged ambulation. We explained to him and his family member present the next few months plans so they can make arrangements for the future. O nce he gets discharged, we will follow him also [facility]. ARA/ASHUTOSH Voice ID: [id number] Report ID: [id number]
[2022-10-23] MEDS: HYDROCODONE/APAP 5/325 MG TAB PO PRN ×3 (02:32→23:21)
[2022-10-23] MEDS: ONDANSETRON 4 MG/2 ML VIAL IV PRN ×2 (02:35→23:21)
[2022-10-23] MEDS: PANTOPRAZOLE 40MG TABLET PO SCH (08:10)
--- NOTE | 2022-10-23 08:20 | P.PN ---
Date of Service: 10/23/22 Subjective: Feeling better after abx have stopped; nausea resolved no new / worsening problems stable, afebrile slightly more output from colostomy ROS: 10 point ROS as noted above, otherwise negative Physical Exam: GEN: Alert, oriented, NAD HEENT: Normal conjunctiva, sclera anicteric CV: Regular rate and rhythm, no edema Pulm: Nonlabored respirations on room air, diminished slightly at bases ABD: colostomy with some output, b/l SHAMIR drains in place, wound vac in place Neuro: Normal speech, normal affect Wound vac in place vitals reviewed Problem List: Perforated Diverticulitis with Intra-abdominal abscess, now s/p ex lap, colostomy, I&D of intra-abdominal abscess, partial omentectomy (10/07) Intractable hiccups, resolved CKD 2 Diarrhea, resolved Class II obesity h/o diverticulitis, >5-6 episodes Perforated Diverticulitis with Intra-abdominal abscess, now s/p ex lap, colostomy, I&D of intra-abdominal abscess, partial omentectomy (10/07) Intractable hiccups s/p ex lap, colostomy, I&D of intra-abdominal abscess, partial omentectomy (10/07) post op CT abdomen (10/13): no abscess seen blood cx: No growth wound cx: No growth NGT removed 10/18 ID consulted previously on zosyn (10/04-10/12) switched to merrem on 10/12 d/t worsening leukocytosis Merrem (10/12-10/20) switched to PO cipro/flagyl (10/20-10/22), now dc'd d/t nausea stop abx given nausea on 10/22, will monitor off abx - discussed with Dr. Zavala afebrile, +leukocytosis resolved; nausea improved GI soft / low fiber - diet as tolerated / per surgery TPN dc'd 10/20 PRN pain medication continue protonix - switched to PO 10/22 PT consult ss/cm consulted for colostomy supplies waiting for HH/ ostomy supplies to be set up for discharge home to go home with SHAMIR drain in place, originally planned to dc home and f/u with Dr. Zavala in office on Wednesday 10/25 CKD 2 monitor renal function improving / stable Diarrhea, resolved Continue enteric precautions. VTE: Lovenox Code: Full Dispo: Home with home health, DC pending colostomy supplies / home health set up, etc Hospital Course Patient presented with abdominal pain, fever, diarrhea. He was found to have perforated diverticulitis with intra-abdominal abscess first noted on CT abdomen. General surgery and ID were consulted. Patient underwent successful ex lap, colostomy, I&D of intra-abdominal abscess, partial omentectomy on 10/07/[address] Zavala. Initially given zosyn (10/04-10/12), abx were switched to merrem (10/12-10/20) due to worsening leukocytosis. Symptoms and leukocytosis improved / resolved. Antibiotics were eventually deescalated to PO cipro/flagyl (10/20-10/22). However patient started to get nauseated on PO abx. (states this always happens with these PO antibiotics - combo or flagyl). Discussed with Dr. Zavala; abx were stopped, patient was monitored off antibiotics, and continued to show improvement. Patient completed ~18 days of total antibiotic treatment (~10 days since merrem started) Patients hospitalization was prolonged due to needing HH setup / needing colosto my supplies.
[2022-10-23 09:18] VITALS: O2SAT 97
[2022-10-23] MEDS: ENOXAPARIN 40 MG/0.4 ML SQ SCH (17:14)
[2022-10-24 05:17] LABS: Absolute Lymphocytes (CBC) 1.3 K/uL (0.7-4.9); Hematocrit 38.1 % (39.6-49.0); Lymphocytes % 21.5 % (15.3-44.8); MCV 92.6 fL (80-100); MPV 11.5 fL (7.6-11.3); Platelets 251 thou/uL (152-406); RBC Red Blood Cell Count 4.11 M/uL (4.33-5.43)
[2022-10-24 05:32] LABS: Albumin 2.6 g/dL (3.4-5.0); Bilirubin Total 0.4 mg/dL (0.2-1.0); Magnesium 2.2 mg/dL (1.6-2.4); Phosphorus 3.6 mg/dL (2.5-4.9); Potassium 3.8 mEq/L (3.5-5.1); Protein, Total 6.7 g/dL (6.4-8.2)
[2022-10-24] MEDS: PANTOPRAZOLE 40MG TABLET PO SCH (08:20)
--- NOTE | 2022-10-24 08:31 | P.PN ---
Date of Service: 10/24/22 Chief Complaint: Abdominal pain. Subjective: Continues to improving. Denies any new or worsening complaints at this time. Reports he is tolerating PO diet. Partner at bedside. Physical Examination Temp Pulse Resp BP Pulse Ox 97.6 F 62 15 136/86 98 10/24/22 04:00 10/24/22 04:00 10/24/22 04:00 10/24/22 04:00 10/24/22 04:00 General: Alert, Oriented x3. In no apparent distress. HEENT: Atraumatic, Normocephalic Neck: Supple, JVD not distended Respiratory: Normal air movement. clear to auscultation bilaterally. On room air. Cardiovascular: No edema, Normal pulses. Gastrointestinal: hypoactive bowel sounds. Colostomy. Musculoskeletal: No clubbing. Moves all extremities. Integumentary: Abdominal surgical site with wound vac in place. Neurological: Normal speech. Normal tone. Normal affect. Studies Laboratory Data - Reviewed Microbiology Data - Blood cultures 10/04: no growth 24 hours - Stool culture 10/06: No salmonella, shigella or campylobacter isolated - IntraAbdominal abscess culture 10/07: No growth to date - Abdominal drainage culture 10/12: No growth to date Imagings Data: - Reviewed Medications list: - Reviewed Assessment and Plan Problem List Intra-abdominal abscess Perforated Diverticulitis Hx of diverticulitis Intra-abdominal abscess - 10/04 CT abdomen pelvis w contrast: " In the left lower quadrant of the abdomen, there is moderate inflammation and thickening of small bowel loops with mild bowel distention and inflamed fat. There is a interloop abscess present measuring 4-5 cm. This may be related to inflammatory bowel disease or infection." - Patient wished to hold off on surgery at the time and continue IV antibiotic Zosyn. - Due to no improvement in symptoms / worsening, repeat CT abdomen obtained 10/07. - CT abdomen pelvis 10/07: "Progressive collections containing air-fluid levels throughout the abdomen, with increasing edema throughout the mesentery and new trace layering fluid along the paracolic gutters. Findings raise concern for an occult bowel perforation, that is not contained. Mildly progressive proximal small bowel fluid filling with short-segment air-fluid levels, suggestive of ileus. " - s/p exploratory laparotomy on 10/07 with creation end colostomy, drainage of intra-abdominal abscess, lysis of adhesions and partial omentectomy by Dr. Zavala. - Intra abdominal abscess culture 10/07: No growth to date - Abdominal drainage culture 10/12: No growth to date - XR KUB 10/12: "Nasogastric tube within the mid stomach. Stomach is mildly dilated. Mild dilatation of multiple small bowel loops with diminished air in the colon could represent a partial obstruction or adynamic ileus. Surgical drains in place. " - CT abdomen pelvis 10/13: " No abscess is seen." - Previously on Zosyn (10/04-10/12) which was switched to Meropenem on 10/12 due to worsening leukocytosis. - On Meropenem from 10/12 to 10/19. - Transitioned to oral antibiotics Ciprofloxacin and Flagyl PO on 10/20. Discontinued on 10/22 due to nausea. - Leukocytosis resolved. Afebrile. Recommendations - Antibiotics discontinued 10/22. Patient was monitored off antibiotics over the weekend, no new or worsening s/s of infection. Tolerating PO diet. - Abdominal surgical site wound care per Dr. Zavala. - Out of bed as tolerated. Abdominal binder. Physical therapy. Pending home wound vac / home health arrangements. CM/SW following. Follow up with Dr. Zavala as outpatient. Case discussed with Alfred Mckeon
[2022-10-24] MEDS ORDERED: POTASSIUM 25 MEQ EFFERV TAB PO ONE (09:00)
[2022-10-24 12:27] VITALS: TEMP 97.4
--- NOTE | 2022-10-24 13:06 | P.PN ---
Date of Service: 10/24/22 Subjective: Feeling better after abx have stopped. has no new issues. awaiting ostomy supplies. ROS: 10 point ROS as noted above, otherwise negative Physical Exam: GEN: Alert, oriented, NAD HEENT: Normal conjunctiva, sclera anicteric CV: Regular rate and rhythm, no edema Pulm: Non labored respirations on room air. ABD: colostomy noted. Neuro: Normal speech, normal affect Wound vac in place vitals reviewed Problem List: Perforated Diverticulitis with Intra-abdominal abscess, now s/p ex lap, colostomy, I&D of intra-abdominal abscess, partial omentectomy (10/07) Intractable hiccups, resolved CKD 2 Diarrhea, resolved Class II obesity h/o diverticulitis, >5-6 episodes Perforated Diverticulitis with Intra-abdominal abscess, now s/p ex lap, colostomy, I&D of intra-abdominal abscess, partial omentectomy (10/07) Intractable hiccups s/p ex lap, colostomy, I&D of intra-abdominal abscess, partial omentectomy (10/07) stable clinical state. awaiting ostomy supplies and training on stoma change technique. CKD 2 monitor renal function Diarrhea, resolved Continue enteric precautions. VTE: Lovenox Code: Full Dispo: Home with home health, DC pending colostomy supplies / home health set up, etc Hospital Course Patient presented with abdominal pain, fever, diarrhea. He was found to have perforated diverticulitis with intra-abdominal abscess first noted on CT abdomen. General surgery and ID were consulted. Patient underwent successful ex lap, colostomy, I&D of intra-abdominal abscess, partial omentectomy on 10/07/[address] Zavala. Initially given zosyn (10/04-10/12), abx were switched to merrem (10/12-10/20) due to worsening leukocytosis. Symptoms and leukocytosis improved / resolved. Antibiotics were eventually deescalated to PO cipro/flagyl (10/20-10/22). However patient started to get nauseated on PO abx. (states this always happens with these PO antibiotics - combo or flagyl). Discussed with Dr. Zavala; abx were stopped, patient was monitored off antibiotics, and continued to show improvement. Patient completed ~18 days of total antibiotic treatment (~10 days since merrem started) Patients hospitalization was prolonged due to needing HH setup/needing colostomy supplies.
[2022-10-24] MEDS: HYDROCODONE/APAP 5/325 MG TAB PO PRN (16:31)
[2022-10-24 17:06] VITALS: BP 128/71
[2022-10-24] MEDS ORDERED: MORPHINE 2 MG/ML SYR IV ONE (17:31)
[2022-10-24] MEDS: ENOXAPARIN 40 MG/0.4 ML SQ SCH (18:02)
--- NOTE | 2022-10-24 20:06 | P.DS ---
Admission Date: 10/04/22 Discharge Date: 10/24/22 Disposition: ROUTINE DISCHARGE Discharge Condition: FAIR Reason for Admission: intrabdominal abscess, perforated diverticuitis, exp lap, colostomy Vital Signs/Physical Exam: Temp Pulse Resp BP Pulse Ox 97.4 F 80 18 128/71 96 10/24/22 16:00 10/24/22 16:00 10/24/22 17:39 10/24/22 16:00 10/24/22 17:39 General: Alert, In no apparent distress, Oriented x3 HEENT: Atraumatic, Normocephalic, PERRLA Neck: Supple, 2+ carotid pulse no bruit, JVD not distended Respiratory: Clear to auscultation bilaterally, Normal air movement Cardiovascular: No edema, Normal pulses, Regular rate/rhythm Capillary refill: <2 Seconds Gastrointestinal: Normal bowel sounds Musculoskeletal: No clubbing, No swelling Neurological: Normal gait, Normal speech Laboratory Data at Discharge: WBC 6.10 thou/uL (4.3-10.9) 10/24/22 04:18 Hgb 13.0 g/dL (13.6-17.9) L 10/24/22 04:18 Hct 38.1 % (39.6-49.0) L 10/24/22 04:18 Plt Count 251 thou/uL (152-406) 10/24/22 04:18 PT 18.1 SECONDS (9.5-12.5) H 10/05/22 03:03 INR 1.65 10/05/22 03:03 APTT 33.2 SECONDS (24.3-36.9) 10/04/22 13:12 Sodium 136 mEq/L (136-145) 10/24/22 04:18 Potassium 3.8 mEq/L (3.5-5.1) 10/24/22 04:18 BUN 15 mg/dL (7-18) 10/24/22 04:18 Creatinine 1.14 mg/dL (0.70-1.30) 10/24/22 04:18 Glucose 158 mg/dL (74-106) H 10/24/22 04:18 Phosphorus 3.6 mg/dL (2.5-4.9) 10/24/22 04:18 Magnesium 2.2 mg/dL (1.6-2.4) 10/24/22 04:18 Total Bilirubin 0.4 mg/dL (0.2-1.0) 10/24/22 04:18 AST 27 U/L (15-37) 10/24/22 04:18 ALT 49 U/L (16-61) 10/24/22 04:18 Alkaline Phosphatase 124 U/L (45-117) H 10/24/22 04:18 Triglycerides 85 mg/dL (<150) 10/05/22 03:03 Cholesterol 94 mg/dL (<200) 10/05/22 03:03 HDL Cholesterol 27 mg/dL (40-60) L 10/05/22 03:03 Cholesterol/HDL Ratio 3.48 10/05/22 03:03 Home Medications: Ondansetron [Zofran] 4 mg PO Q6H PRN 3 Days #10 tab 07/16/20 Albuterol Inhaler [Ventolin Inhaler*] 1 puff IH DAILY PRN 10/04/22 Diet: [place] Activity: Ad yan Followup: NONE,NONE [Primary Care Provider] -
--- NOTE | 2022-10-25 11:13 | P.PN ---
Date of Service: 10/25/22 Reviewed patient's chart. Patient is a 52-year-old gentleman who came to the hospital with intra-abdominal abscess. Patient developed peritonitis and was taken to the operating room for incision and debridement of the intra-abdominal abscesses and he had colostomy placement. Patient apparently was treated in the hospital for a prolonged hospitalization. After his prolonged hospitalization, he was discharged last night at around 2100. Nurse practitioner had not prescribed any pain medication at discharge. I was notified by Dr. Zavala that patient needed pain medication. After review of the chart, it was felt that patient had been taking pain medication throughout his hospitalization. We will go ahead and prescribe him a 1 week supply of pain medication.
== END 2022-10-24 21:10 | disposition home health service (06) | DRG 853 ==
LOC: ER 12:55 → ERHOLD 15:55 → 2ND 16:59 → 3RD-ICU 10-07 16:21 → 2ND 10-11 17:36
PROVIDERS: ADMIT Hospitalist; ATTEND Hospitalist
PROC: 0DNU0ZZ Release Omentum, Open Approach (ICD-10-PCS; 2022-10-07)
PROC: 0DBU0ZZ Excision of Omentum, Open Approach (ICD-10-PCS; 2022-10-07)
PROC: 0W9G0ZZ Drainage of Peritoneal Cavity, Open Approach (ICD-10-PCS; 2022-10-07)
PROC: 0D1N0Z4 Bypass Sigmoid Colon to Cutaneous, Open Approach (ICD-10-PCS; principal; 2022-10-07 13:45)
PROC: 02HV33Z Insertion of Infusion Device into Superior Vena Cava, Percutaneous Approach (ICD-10-PCS; 2022-10-08)
PROC: 3E0436Z Introduction of Nutritional Substance into Central Vein, Percutaneous Approach (ICD-10-PCS; 2022-10-08)
PROC: 0DH67UZ Insertion of Feeding Device into Stomach, Via Natural or Artificial Opening (ICD-10-PCS; 2022-10-17)
DX: A41.9 Sepsis, unspecified organism (principal); K65.1 Peritoneal abscess; K56.609 Unspecified intestinal obstruction, unspecified as to partial versus complete obstruction; K57.20 Diverticulitis of large intestine with perforation and abscess without bleeding; N17.9 Acute kidney failure, unspecified; N18.30 Chronic kidney disease, stage 3 unspecified; J45.909 Unspecified asthma, uncomplicated; E66.9 Obesity, unspecified; R06.6 Hiccough; R74.01 Elevation of levels of liver transaminase levels; Z68.35 Body mass index [BMI] 35.0-35.9, adult; Z98.52 Vasectomy status; Z87.891 Personal history of nicotine dependence; Z79.899 Other long term (current) drug therapy
CPT/HCPCS: 36415; 71045; 74018; 74176; 74177; 80048; 80053; 80061; 80069; 80076; 81001; 82947; 83605; 83735; 84100; 84132; 85025; 85610; 85730; 87040; 87045; 87046; 87070; 87075; 87177; 87205; 87209; 88304; 88307; 89055; 93005; 94010; 96365; 96366; 96375; 97116; 97161; 97530; 99285; A4216; C9113; J0360; J1100; J1170; J1650; J2001; J2175; J2185; J2250; J2270; J2405; J2543; J2704; J2765; J3010; J3475; J3480; J7030; J7120; P9045; Q9967